=== PATIENT | female | born 1975 | race Caucasian/White ===

== ENCOUNTER → 2016-11-27 | Outpatient (CLI) | payer OTHER ==
[~2016-11-27] MED LIST: /ADVA50050 IN; /ESCI20TA OR; ACET500C OR; ADV250INH INH; ALTA5CAP OR; APIDINJ SC; APIDRA INSULIN SC; FOLI1TAB2 PO; GLUC1KIT INJ; INSUDET SC; INSULANT SC; KEPP500T6 PO; LEVE500XR PO; LIPI10TA OR; LORATADINE PO; NICO14PA TD; NPH INSULIN SC; PROA1AER INH; SING10TA31 OR; THIA100TA PO; VENTOLIN INH; VITMTA PO
[2016-11-27 11:35] LABS: INR 0.98
[2016-11-27 11:54] LABS: ANION GAP 9 MEQ/L (8-16); BLOOD UREA NITROGEN 11 MG/DL (7-18); CALCIUM LEVEL 8.9 MG/DL (8.5-10.1); CARBON DIOXIDE LEVEL 27 MEQ/L (21-32); CHLORIDE LEVEL 102 MEQ/L (98-107); CREATININE FOR GFR 0.88 MG/DL (0.55-1.02); GLOMERULAR FILTRATION RATE > 60.0 (>58); GLUCOSE, FASTING 109 MG/DL (70-105); POTASSIUM SERUM 4.8 MEQ/L (3.5-5.1); SODIUM LEVEL 138 MEQ/L (136-145)
== END ==
LOC: M WUC 09:41
PROVIDERS: ATTEND Family Medicine
DX: Z01.818 Encounter for other preprocedural examination (principal); M25.512 Pain in left shoulder; E10.9 Type 1 diabetes mellitus without complications; E78.2 Mixed hyperlipidemia; Z72.0 Tobacco use

== ENCOUNTER → 2017-02-09 | Outpatient (CLI) | payer OTHER ==
[2017-02-09 14:29] LABS: ALT/SGPT 19 U/L (12-78); ANION GAP 8 MEQ/L (8-16); AST/SGOT 17 U/L (15-37); BLOOD UREA NITROGEN 9 MG/DL (7-18); CALCIUM LEVEL 9.2 MG/DL (8.5-10.1); CARBON DIOXIDE LEVEL 28 MEQ/L (21-32); CHLORIDE LEVEL 102 MEQ/L (98-107); CREATININE FOR GFR 0.83 MG/DL (0.55-1.02); GLOMERULAR FILTRATION RATE > 60.0 (>58); GLUCOSE, FASTING 131 MG/DL (70-105); POTASSIUM SERUM 4.5 MEQ/L (3.5-5.1); SODIUM LEVEL 138 MEQ/L (136-145)
[2017-02-09 14:30] LABS: ALBUMIN 3.8 GM/DL (3.2-5.2); ALBUMIN/GLOBULIN RATIO 1.03 (1.00-1.93); ALKALINE PHOSPHATASE 64 U/L (45-117); BILIRUBIN,TOTAL 1.1 MG/DL (0.2-1.0); CHOLESTEROL LEVEL 171 MG/DL (<200); TOTAL PROTEIN 7.5 GM/DL (6.4-8.2); TRIGLYCERIDES LEVEL 87 MG/DL (<150)
== END ==
LOC: M WUC 10:06
PROVIDERS: ATTEND Family Medicine
DX: E78.2 Mixed hyperlipidemia (principal); E10.9 Type 1 diabetes mellitus without complications

== ENCOUNTER → 2017-05-07 | Outpatient (CLI) | payer OTHER, MEDICAID ==
[~2017-05-07] MED LIST changes: +ATOR1TAB19 PO; +BASA100I SC; +BASA100I SQ; +BREO1INH INH; +BUSP10TA PO; +CETI10TA PO; +CETI5TAB2 PO; -FOLI1TAB2 PO; +FOLI1TAB4 PO; +GABA-283 PO; +HUMA100I3 SC; +HYDR-3713 PO; +KEPP1TAB PO; +KEPP1TAB2 PO; -KEPP500T6 PO; +LEXA1TAB PO; +LIPI10TA PO; +LISI-542 PO; +MONT10TA2 PO; +PRIM50TA6 PO; -PROA1AER INH; +PROAAER10 INH; +REGL10TA6 PO; +ZOFR4TAB3 PO; +[UNRECOGNIZED DRUG - OTHER] SC
--- NOTE | 2017-05-08 08:11 | REP ---
Clinical: Pain . Technique: Internal rotation, external rotation, and Y view left shoulder . Findings: Mild degenerative changes at the acromioclavicular joint are appreciated. No acute fracture or dislocation. No periarticular calcifications or further significant degenerative changes are appreciated. Sub acromial space is normal. No periarticular calcifications. Surrounding soft tissues are unremarkable. Impression: Essentially normal age appropriate left shoulder radiographs. Signed by Kendall Clarke MD 05/08/2017 02:52 A
== END ==
LOC: M WUC 10:20
PROVIDERS: ATTEND Psychiatry & Neurology Neurology
DX: M25.512 Pain in left shoulder (principal)

== ENCOUNTER 2017-05-09 11:44 | Emergency (ER) | payer MEDICAID, OTHER ==
[~2017-05-09] VITALS: Ht 167.6 cm; Wt 61.4 kg
[~2017-05-09 11:44] MED LIST changes: -ATOR1TAB19 PO; -BASA100I SC; -BASA100I SQ; -BREO1INH INH; -BUSP10TA PO; -CETI10TA PO; -CETI5TAB2 PO; -GABA-283 PO; -HUMA100I3 SC; -HYDR-3713 PO; -KEPP1TAB2 PO; -LEXA1TAB PO; -LIPI10TA PO; -LISI-542 PO; -MONT10TA2 PO; -PRIM50TA6 PO; -REGL10TA6 PO; -ZOFR4TAB3 PO; -[UNRECOGNIZED DRUG - OTHER] SC
[2017-05-09] MEDS ORDERED: BASA100I SC (11:55)
[2017-05-09] MEDS ORDERED: LIPI10TA PO (11:55)
[2017-05-09] MEDS ORDERED: BUSP10TA PO (11:55)
[2017-05-09] MEDS ORDERED: LEXA1TAB PO (11:55)
[2017-05-09] MEDS ORDERED: LR 1,000 ML IV ONE ×2 (13:15→14:45)
[2017-05-09 13:56] LABS: ADD MANUAL DIFFER YES; MEAN CORPUSCULAR HEMOGLOBIN 33.8 pg (27.0-33.0); MEAN CORPUSCULAR HGB CONC 34.2 g/dl (32.0-36.5); MEAN CORPUSCULAR VOLUME 98.8 fl (80.0-96.0); PLATELET COUNT, AUTOMATED 171 k/mm3 (150-450); RED CELL DISTRIBUTION WIDTH 12.1 % (11.5-14.5)
[2017-05-09 13:58] LABS: ALBUMIN 3.9 GM/DL (3.2-5.2); ALBUMIN/GLOBULIN RATIO 1.18 (1.00-1.93); ALKALINE PHOSPHATASE 55 U/L (45-117); ALT/SGPT 29 U/L (12-78); ANION GAP 10 MEQ/L (8-16); AST/SGOT 43 U/L (15-37); BILIRUBIN,TOTAL 0.3 MG/DL (0.2-1.0); BLOOD UREA NITROGEN 12 MG/DL (7-18); CALCIUM LEVEL 8.7 MG/DL (8.5-10.1); CARBON DIOXIDE LEVEL 22 MEQ/L (21-32); CHLORIDE LEVEL 104 MEQ/L (98-107); GLOMERULAR FILTRATION RATE > 60.0 (>58); GLUCOSE, FASTING 174 MG/DL (70-105); POTASSIUM SERUM 4.1 MEQ/L (3.5-5.1); SODIUM LEVEL 136 MEQ/L (136-145); TOTAL PROTEIN 7.2 GM/DL (6.4-8.2)
[2017-05-09 14:24] LABS: BANDS 7 % (< 11); EOSINOPHILS 1 % (0-5)
[2017-05-09] MEDS ORDERED: ONDANSETRON 4MG/2ML VIAL (J2405) IV ONE (14:45)
[2017-05-09] MEDS ORDERED: ZOFR4TAB3 PO (15:11)
[2017-05-09 15:47] VITALS: BP 108/64
--- NOTE | 2017-05-10 07:58 | ECGEPIP ---
Stationary ECG Study [facility] - ED Test Date: 2017-05-09 Pat Name: SIMONE KELLY Department: Room: - Gender: F Medical Artist: eugenia LACKEYB: 1975 Requested By: JUANJOSE Bowie PA-C Order Number: [id number] Reading MD: Lopez Poe Measurements Intervals [place] Rate: 83 P: 72 MD: 141 QRS: 72 QRSD: 77 T: 53 QT: 367 QTc: 434 Interpretive Statements SINUS RHYTHM Electronically Signed On 05-10-2017 7:58:05 EDT by Lopez Poe
[2017-07-13] MEDS ORDERED: ATOR1TAB19 PO (12:36)
[2017-07-13] MEDS ORDERED: MONT10TA2 PO (12:36)
[2017-07-13] MEDS ORDERED: BREO1INH INH (12:36)
[2017-07-13] MEDS ORDERED: LISI-542 PO (12:36)
[2017-07-13] MEDS ORDERED: CETI10TA PO (12:36)
[2017-07-13] MEDS ORDERED: KEPP1TAB2 PO (12:36)
[2017-07-13] MEDS ORDERED: GABA-283 PO (12:36)
[2017-07-13] MEDS ORDERED: CETI5TAB2 PO (12:36)
[2017-07-13] MEDS ORDERED: [UNRECOGNIZED DRUG - OTHER] SC (12:36)
[2017-07-13] MEDS ORDERED: PRIM50TA6 PO (12:36)
== END 2017-05-09 15:57 | disposition home or self-care (01) ==
LOC: M ED 11:44
DX: K52.9 Noninfective gastroenteritis and colitis, unspecified (principal); R51 Headache; G40.909 Epilepsy, unspecified, not intractable, without status epilepticus; J45.909 Unspecified asthma, uncomplicated; E11.9 Type 2 diabetes mellitus without complications; H91.93 Unspecified hearing loss, bilateral; F17.200 Nicotine dependence, unspecified, uncomplicated; Z90.79 Acquired absence of other genital organ(s); Z79.4 Long term (current) use of insulin; Z79.899 Other long term (current) drug therapy
CPT/HCPCS: 80053; 83690; 85025; 93005; 96360; 96361; 99284; J2405

== ENCOUNTER 2017-05-11 10:31 | Emergency (ER) | payer MEDICAID ==
[~2017-05-11] VITALS: Ht 167.6 cm; Wt 63.9 kg
[~2017-05-11 10:31] MED LIST changes: +BASA100I SC; +BUSP10TA PO; +LEXA1TAB PO; +LIPI10TA PO; +ZOFR4TAB3 PO
[2017-05-11 10:32] VITALS: BP 113/76
[2017-05-11] MEDS ORDERED: HUMA100I3 SC (10:41)
[2017-05-11] MEDS ORDERED: NS 1,000 ML IV ONE (11:30)
[2017-05-11] MEDS ORDERED: METOCLOPRAMIDE INJ 10MG/2ML VIAL (J2765) IV ONE (11:45)
[2017-05-11 11:52] LABS: BASO # 0.1 K/mm3 (0.0-0.2); BASO % 1.1 % (0.0-1.0); EOS # 0.2 K/mm3 (0.0-0.50); EOS % 3.9 % (0.0-3.0); LARGE UNSTAINED CELL # 0.3 K/mm3 (0.0-0.4); LARGE UNSTAINED CELL % 4.3 % (0.0-4.0); LYMPH # 1.7 K/mm3 (1.5-4.5); LYMPH % 24.5 % (24.0-44.0); MEAN CORPUSCULAR HEMOGLOBIN 32.5 pg (27.0-33.0); MEAN CORPUSCULAR HGB CONC 33.7 g/dl (32.0-36.5); MEAN CORPUSCULAR VOLUME 96.4 fl (80.0-96.0); MONO # 0.4 K/mm3 (0.0-0.8); MONO % 6.8 % (0.0-5.0); NEUTROPHILS # 3.5 K/mm3 (1.8-7.7); NEUTROPHILS % 59.3 % (36.0-66.0); PLATELET COUNT, AUTOMATED 178 k/mm3 (150-450); RED CELL DISTRIBUTION WIDTH 12.4 % (11.5-14.5); WHITE BLOOD COUNT 5.8 K/mm3 (4.0-10.0)
[2017-05-11 12:18] LABS: ALBUMIN 3.4 GM/DL (3.2-5.2); ALBUMIN/GLOBULIN RATIO 0.87 (1.00-1.93); ALKALINE PHOSPHATASE 54 U/L (45-117); ALT/SGPT 32 U/L (12-78); ANION GAP 6 MEQ/L (8-16); AST/SGOT 39 U/L (15-37); BILIRUBIN,TOTAL 0.3 MG/DL (0.2-1.0); BLOOD UREA NITROGEN 6 MG/DL (7-18); CALCIUM LEVEL 8.6 MG/DL (8.5-10.1); CARBON DIOXIDE LEVEL 25 MEQ/L (21-32); CHLORIDE LEVEL 105 MEQ/L (98-107); CREATININE FOR GFR 0.99 MG/DL (0.55-1.02); GLOMERULAR FILTRATION RATE > 60.0 (>58); GLUCOSE, FASTING 96 MG/DL (70-105); POTASSIUM SERUM 3.3 MEQ/L (3.5-5.1); SODIUM LEVEL 136 MEQ/L (136-145); TOTAL PROTEIN 7.3 GM/DL (6.4-8.2)
--- NOTE | 2017-05-11 12:49 | REP ---
ABDOMEN, FLAT AND UPRIGHT, PA CHEST: HISTORY: Abdominal pain. Air is present in the small and large intestine. Several air fluid levels are present. There are no dilated loops of intestine. There is no pneumoperitoneum. The lungs are clear. IMPRESSION: Nonspecific bowel gas pattern. Signed by Refugio Reich MD 05/11/2017 12:52 P
[2017-05-11] MEDS ORDERED: POTASSIUM CHLORIDE 10 MEQ SR TABLET PO ONE (13:15)
[2017-05-11] MEDS ORDERED: REGL10TA6 PO (13:20)
[2017-07-13] MEDS ORDERED: KEPP1TAB2 PO (12:36)
[2017-07-13] MEDS ORDERED: PRIM50TA6 PO (12:36)
[2017-07-13] MEDS ORDERED: ATOR1TAB19 PO (12:36)
[2017-07-13] MEDS ORDERED: LISI-542 PO (12:36)
[2017-07-13] MEDS ORDERED: MONT10TA2 PO (12:36)
[2017-07-13] MEDS ORDERED: CETI10TA PO (12:36)
[2017-07-13] MEDS ORDERED: GABA-283 PO (12:36)
[2017-07-13] MEDS ORDERED: BREO1INH INH (12:36)
[2017-07-13] MEDS ORDERED: [UNRECOGNIZED DRUG - OTHER] SC (12:36)
[2017-07-13] MEDS ORDERED: CETI5TAB2 PO (12:36)
== END 2017-05-11 13:31 | disposition home or self-care (01) ==
LOC: M ED 10:31
DX: A09 Infectious gastroenteritis and colitis, unspecified (principal); F17.210 Nicotine dependence, cigarettes, uncomplicated; Z88.0 Allergy status to penicillin; Z88.1 Allergy status to other antibiotic agents; Z88.2 Allergy status to sulfonamides; Z79.4 Long term (current) use of insulin; Z79.899 Other long term (current) drug therapy
CPT/HCPCS: 74022; 80053; 81001; 83690; 85025; 87507; 96374; 99283; J2765

== ENCOUNTER → 2017-05-18 | Outpatient (CLI) | payer MEDICAID ==
[~2017-05-18] MED LIST changes: +ATOR1TAB19 PO; +BASA100I SQ; +BREO1INH INH; +CETI10TA PO; +CETI5TAB2 PO; +GABA-283 PO; +HUMA100I3 SC; +HYDR-3713 PO; +KEPP1TAB2 PO; +LISI-542 PO; +MONT10TA2 PO; +PRIM50TA6 PO; +REGL10TA6 PO; +[UNRECOGNIZED DRUG - OTHER] SC
[2017-05-18 18:24] LABS: ALBUMIN 3.5 GM/DL (3.2-5.2); ALBUMIN/GLOBULIN RATIO 1.03 (1.00-1.93); ALKALINE PHOSPHATASE 54 U/L (45-117); ALT/SGPT 35 U/L (12-78); ANION GAP 11 MEQ/L (8-16); AST/SGOT 22 U/L (15-37); BILIRUBIN,DIRECT 0.2 MG/DL (0.0-0.2); BILIRUBIN,TOTAL 0.5 MG/DL (0.2-1.0); BLOOD UREA NITROGEN 7 MG/DL (7-18); CARBON DIOXIDE LEVEL 23 MEQ/L (21-32); CHLORIDE LEVEL 107 MEQ/L (98-107); CREATININE FOR GFR 0.74 MG/DL (0.55-1.02); GLOMERULAR FILTRATION RATE > 60.0 (>58); GLUCOSE, FASTING 167 MG/DL (70-105); POTASSIUM SERUM 3.7 MEQ/L (3.5-5.1); SODIUM LEVEL 141 MEQ/L (136-145); TOTAL PROTEIN 6.9 GM/DL (6.4-8.2)
== END ==
LOC: M WUC 12:17
PROVIDERS: ATTEND Internal Medicine Endocrinology, Diabetes & Metabolism
DX: E10.65 Type 1 diabetes mellitus with hyperglycemia (principal)

== ENCOUNTER → 2017-07-07 | Outpatient (CLI) | payer MEDICAID, OTHER ==
[2017-07-07 17:24] LABS: ANION GAP 5 MEQ/L (8-16); BLOOD UREA NITROGEN 5 MG/DL (7-18); CALCIUM LEVEL 9.2 MG/DL (8.5-10.1); CARBON DIOXIDE LEVEL 31 MEQ/L (21-32); CHLORIDE LEVEL 103 MEQ/L (98-107); CREATININE FOR GFR 0.72 MG/DL (0.55-1.02); GLOMERULAR FILTRATION RATE > 60.0 (>58); POTASSIUM SERUM 4.5 MEQ/L (3.5-5.1); SODIUM LEVEL 139 MEQ/L (136-145)
[2017-07-07 17:57] LABS: GLUCOSE, FASTING 33 MG/DL (70-105)
[2017-07-07 20:06] LABS: MEAN CORPUSCULAR HEMOGLOBIN 33.3 pg (27.0-33.0); MEAN CORPUSCULAR VOLUME 101.1 fl (80.0-96.0); RED CELL DISTRIBUTION WIDTH 13.9 % (11.5-14.5); WHITE BLOOD COUNT 10.2 10^3/uL (4.0-10.0)
== END ==
LOC: M WUC 14:22
PROVIDERS: ATTEND Podiatrist Foot & Ankle Surgery
DX: Z01.818 Encounter for other preprocedural examination (principal); M20.41 Other hammer toe(s) (acquired), right foot

== ENCOUNTER 2017-07-22 07:04 | Day surgery (SDC) | payer OTHER ==
[~2017-07-22] VITALS: Ht 167.6 cm; Wt 64.9 kg
[~2017-07-22 07:04] MED LIST changes: -BASA100I SQ; -HYDR-3713 PO
[2017-07-22] MEDS ORDERED: LR 1,000 ML IV ONE (07:15)
[2017-07-22] MEDS ORDERED: CLINDAMYCIN 600 MG in APPROPRIATE DILUENT 1 EA IV ONE (07:30)
[2017-07-22] MEDS ORDERED: BASA100I SQ (07:48)
[2017-07-22] MEDS ORDERED: PROPOFOL 200 MG/20 ML VIAL As Ordered ONE (07:55)
[2017-07-22] MEDS ORDERED: ONDANSETRON 4MG/2ML VIAL (J2405) As Ordered ONE (07:55)
[2017-07-22] MEDS ORDERED: fentaNYL 100 MCG/2 ML INJECTION (J3010) As Ordered ONE (07:55)
[2017-07-22] MEDS ORDERED: LIDOCAINE 2% INJ 100 MG/5 ML SDV (FOR ANES.) As Ordered ONE (07:55)
[2017-07-22] MEDS ORDERED: dexameTHASONE 4 MG/ML 1ML VIAL (J1100) As Ordered ONE (07:57)
[2017-07-22] MEDS ORDERED: MIDAZOLAM INJ 2 MG/2 ML VIAL (J2250) As Ordered ONE (07:57)
[2017-07-22] MEDS ORDERED: LIDOCAINE 1% MDV 20ML VIAL As Ordered ONE (07:57)
[2017-07-22] MEDS ORDERED: BUPIVACAINE HCL 0.5% 10 ML VIAL As Ordered ONE (07:57)
[2017-07-22] MEDS ORDERED: HYDR-3713 PO (09:59)
[2017-07-22 10:40] VITALS: BP 134/77
--- NOTE | 2017-07-22 11:25 | RO ---
DATE OF SURGERY: 07/22/2017 PREOPERATIVE DIAGNOSES: Right 5th hammertoe with corn. POSTOPERATIVE DIAGNOSES: Right 5th hammertoe with corn. PROCEDURE: Right 5th hammertoe correction, excision of corn. SURGEON: Len Bowers DPM STEAM PLANT OPERATOR: None ANESTHESIA: Monitored anesthesia care with preoperative injection of 5 mL of 1:1 mixture of 1% lidocaine plain and 0.5% Marcaine plain. ESTIMATED BLOOD LOSS: Minimal. MATERIALS: 4-0 nylon. INJECTABLES: 0.2 mL dexamethasone 4 mg/mL. COMPLICATIONS: None. CONDITION: Stable. Rabia Manuel is a 41-year-old female who presents to [facility] with painful corn and hammertoe to her 5th toe on the right foot. She presents today for surgical correction. The patient side and site were identified and marked in the preoperative holding area. Consent was reviewed and obtained. All risks, complications, and alternatives to the procedure were explained to the patient in detail. Questions were answered. DESCRIPTION OF PROCEDURE: The patient was brought to the operating room and placed on the operating room table in supine position. Monitored anesthesia care was delivered by the anesthesia team. The patient received clindamycin 600 mg prior to the procedure. The right foot was prepped and draped in normal sterile fashion. Tourniquet was applied at the right ankle and inflated to 225 mmHg. An elliptical incision was made around the corn, which was at the lateral narrow fold of the 5th toe and extended proximally to the level of the proximal interphalangeal joint, which was carried through with a #15 blade. The corn was excised in total. Dissection was carried down until the distal bone was identified. There was a bone spur noted at the corn site that was dissected with the sagittal saw. Next, attention was paid to the proximal interphalangeal joint. Tenotomy was performed of the extensor tendon, and the proximal interphalangeal joint capsule was transected, exposing the head of the proximal phalanx. The collateral ligaments were released, and the head of the proximal phalanx was excised with a sagittal saw. Following this, the extensor tendon was repaired with 3-0 Vicryl, and skin closure was performed with 4-0 nylon. 0.2 mL dexamethasone was injected. Sterile dressings were applied. The tourniquet was deflated. The patient was brought to postanesthesia care unit (PACU), vital signs stable, and neurovascular status intact. She will be weightbearing as tolerated in postoperative shoe. She will followup in office in 2 days.
== END 2017-07-22 10:45 | disposition home or self-care (01) ==
LOC: M SDC 07:04
PROVIDERS: ATTEND Podiatrist Foot & Ankle Surgery
DX: M20.41 Other hammer toe(s) (acquired), right foot (principal); L84 Corns and callosities; F32.9 Major depressive disorder, single episode, unspecified; E10.9 Type 1 diabetes mellitus without complications; E78.2 Mixed hyperlipidemia; I10 Essential (primary) hypertension; E78.00 Pure hypercholesterolemia, unspecified; R56.9 Unspecified convulsions; J45.909 Unspecified asthma, uncomplicated; Z88.0 Allergy status to penicillin; Z88.2 Allergy status to sulfonamides; Z88.8 Allergy status to other drugs, medicaments and biological substances; Z79.899 Other long term (current) drug therapy; Z79.4 Long term (current) use of insulin; Z72.0 Tobacco use; Z90.710 Acquired absence of both cervix and uterus; Z98.51 Tubal ligation status

== ENCOUNTER → 2017-08-19 | Outpatient (CLI) | payer OTHER ==
[~2017-08-19] MED LIST changes: +BASA100I SQ; +HYDR-3713 PO
[2017-08-19 17:08] LABS: ALBUMIN 3.8 GM/DL (3.2-5.2); ALBUMIN/GLOBULIN RATIO 1.15 (1.00-1.93); ALKALINE PHOSPHATASE 56 U/L (45-117); ALT/SGPT 22 U/L (12-78); ANION GAP 8 MEQ/L (8-16); AST/SGOT 7 U/L (7-37); BILIRUBIN,TOTAL 0.6 MG/DL (0.2-1.0); BLOOD UREA NITROGEN 14 MG/DL (7-18); CALCIUM LEVEL 9.2 MG/DL (8.5-10.1); CARBON DIOXIDE LEVEL 25 MEQ/L (21-32); CHLORIDE LEVEL 104 MEQ/L (98-107); CHOLESTEROL LEVEL 151 MG/DL (<200); CREATININE FOR GFR 0.99 MG/DL (0.55-1.02); GLOMERULAR FILTRATION RATE > 60.0 (>58); GLUCOSE, FASTING 251 MG/DL (70-105); POTASSIUM SERUM 4.4 MEQ/L (3.5-5.1); SODIUM LEVEL 137 MEQ/L (136-145); TOTAL PROTEIN 7.1 GM/DL (6.4-8.2); TRIGLYCERIDES LEVEL 63 MG/DL (<150)
== END ==
LOC: M WUC 13:58
PROVIDERS: ATTEND Family Medicine
DX: E78.2 Mixed hyperlipidemia (principal)

== ENCOUNTER → 2017-12-30 | Outpatient (REF) | payer OTHER ==
[2017-12-30 11:59] LABS: ANION GAP 5 MEQ/L (8-16); BLOOD UREA NITROGEN 10 MG/DL (7-18); CALCIUM LEVEL 9.2 MG/DL (8.5-10.1); CARBON DIOXIDE LEVEL 29 MEQ/L (21-32); CHLORIDE LEVEL 107 MEQ/L (98-107); GLOMERULAR FILTRATION RATE > 60.0 (>58); GLUCOSE, FASTING 78 MG/DL (70-100); POTASSIUM SERUM 4.7 MEQ/L (3.5-5.1); SODIUM LEVEL 141 MEQ/L (136-145)
== END ==
LOC: M LABDRAWC 11:22
DX: M75.02 Adhesive capsulitis of left shoulder (principal)

== ENCOUNTER 2018-02-22 15:32 | Outpatient (CLI) | payer OTHER ==
[2018-02-23 09:27] LABS: ALBUMIN 4.2 GM/DL (3.2-5.2); ALBUMIN/GLOBULIN RATIO 1.31 (1.00-1.93); ALKALINE PHOSPHATASE 59 U/L (45-117); ALT/SGPT 18 U/L (12-78); ANION GAP 10 MEQ/L (8-16); AST/SGOT 12 U/L (7-37); BILIRUBIN,TOTAL 0.8 MG/DL (0.2-1.0); BLOOD UREA NITROGEN 11 MG/DL (7-18); CALCIUM LEVEL 9.1 MG/DL (8.5-10.1); CARBON DIOXIDE LEVEL 27 MEQ/L (21-32); CHLORIDE LEVEL 101 MEQ/L (98-107); CHOLESTEROL LEVEL 174 MG/DL (<200); CHOLESTEROL RISK RATIO 1.793 (<5); CREATININE FOR GFR 0.91 MG/DL (0.55-1.30); GLOMERULAR FILTRATION RATE > 60.0 (>58); GLUCOSE, FASTING 118 MG/DL (70-100); HDL CHOLESTEROL 97 MG/DL (>40); LDL CHOLESTEROL 63.8 MG/DL (<100); NON-HDL-C 77 MG/DL; POTASSIUM SERUM 4.5 MEQ/L (3.5-5.1); SODIUM LEVEL 138 MEQ/L (136-145); TOTAL PROTEIN 7.4 GM/DL (6.4-8.2); TRIGLYCERIDES LEVEL 66 MG/DL (<150)
[2018-02-23 09:36] LABS: ESTIMATED AVERAGE GLUCOSE 151 MG/DL (60-110); HEMOGLOBIN A1c 6.9 %
== END 2018-02-23 ==
LOC: M WUC 15:32
DX: E78.2 Mixed hyperlipidemia (principal)
CPT/HCPCS: 36415; 84443

== ENCOUNTER → 2018-05-31 | Outpatient (REF) | payer OTHER ==
[2018-05-31 23:03] LABS: CHLAMYDIA DNA AMPLIFICATION NEGATIVE (NEGATIVE); GC DNA AMPLIFICATION NEGATIVE (NEGATIVE)
== END ==
LOC: M LAB REF 21:02
DX: N39.0 Urinary tract infection, site not specified (principal)

== ENCOUNTER 2018-06-05 02:42 | Emergency (ER) | payer OTHER ==
[2018-06-05] MEDS: DEXTROSE 50% 50 ML SYRINGE IV ×2 (04:02→06:35)
[2018-06-05 04:03] LABS: BEDSIDE GLUCOSE 64 MG/DL (70-105)
[2018-06-05] MEDS ORDERED: DEXTROSE 50% 50 ML SYRINGE As Ordered (04:03)
[2018-06-05 04:47] LABS: BEDSIDE GLUCOSE 100 MG/DL (70-105)
[2018-06-05 04:58] LABS: BASO % 0.5 % (0.0-1.0); EOS # 0.2 10^3/uL (0.0-0.50); EOS % 2.1 % (0.0-3.0); HEMATOCRIT 37.7 % (36.0-47.0); HEMOGLOBIN 12.7 g/dl (12.0-15.5); IMMATURE GRANULOCYTE % 0.3 % (0-3.0); LYMPH # 2.7 10^3/uL (1.5-4.5); LYMPH % 35.4 % (24.0-44.0); MEAN CORPUSCULAR HGB CONC 33.7 g/dl (32.0-36.5); MEAN CORPUSCULAR VOLUME 97.9 fl (80.0-96.0); MONO # 0.5 10^3/uL (0.0-0.8); MONO % 6.2 % (0.0-5.0); NEUTROPHILS # 4.2 10^3/uL (1.8-7.7); NEUTROPHILS % 55.5 % (36.0-66.0); PLATELET COUNT, AUTOMATED 259 10^3/uL (150-450); RED BLOOD COUNT 3.85 10^6/uL (4.00-5.40); RED CELL DISTRIBUTION WIDTH 12.1 % (11.5-14.5); WHITE BLOOD COUNT 7.5 10^3/uL (4.0-10.0)
[2018-06-05 05:18] LABS: CONTROL LINE HCG INT CTR LINE PRESENT; HCG, SERUM QUALITATIVE NEGATIVE (NEGATIVE)
[2018-06-05 05:41] LABS: ETHYL ALCOHOL (ETHANOL) 0.093 % (0.000-0.010)
[2018-06-05 05:44] LABS: HIV SCRN NEGATIVE (NEGATIVE); HIV SCRN1 NEGATIVE (NEGATIVE)
[2018-06-05 05:45] LABS: CONTROL LINE INT CTR LINE PRESENT
[2018-06-05 06:36] LABS: BEDSIDE GLUCOSE 35 MG/DL (70-105)
[2018-06-05] MEDS: D5W/0.45% SODIUM CHLORIDE 1,000 ML IV ×2 (06:44→07:08)
[2018-06-05 06:59] LABS: BEDSIDE GLUCOSE 98 MG/DL (70-105)
[2018-06-05 07:28] LABS: BEDSIDE GLUCOSE 88 MG/DL (70-105)
[2018-06-05 07:58] LABS: BEDSIDE GLUCOSE 81 MG/DL (70-105)
[2018-06-05 08:29] LABS: BEDSIDE GLUCOSE 80 MG/DL (70-105)
[2018-06-05 08:51] LABS: ALBUMIN 3.5 GM/DL (3.2-5.2); ALBUMIN/GLOBULIN RATIO 1.03 (1.00-1.93); ALKALINE PHOSPHATASE 46 U/L (45-117); ALT/SGPT 19 U/L (12-78); ANION GAP 8 MEQ/L (8-16); AST/SGOT 10 U/L (7-37); BILIRUBIN,TOTAL 0.4 MG/DL (0.2-1.0); BLOOD UREA NITROGEN 11 MG/DL (7-18); CALCIUM LEVEL 8.5 MG/DL (8.5-10.1); CARBON DIOXIDE LEVEL 28 MEQ/L (21-32); CHLORIDE LEVEL 107 MEQ/L (98-107); CREATININE FOR GFR 0.65 MG/DL (0.55-1.30); GLOMERULAR FILTRATION RATE > 60.0 (>58); GLUCOSE, FASTING 99 MG/DL (70-100); POTASSIUM SERUM 4.1 MEQ/L (3.5-5.1); SODIUM LEVEL 143 MEQ/L (136-145); TOTAL PROTEIN 6.9 GM/DL (6.4-8.2)
[2018-06-05 09:08] LABS: BEDSIDE GLUCOSE 78 MG/DL (70-105)
[2018-06-05 09:48] LABS: BEDSIDE GLUCOSE 109 MG/DL (70-105)
[2018-06-05 10:23] LABS: BEDSIDE GLUCOSE 101 MG/DL (70-105)
[2018-06-05 11:22] LABS: BEDSIDE GLUCOSE 76 MG/DL (70-105)
[2018-06-05 12:28] LABS: BEDSIDE GLUCOSE 157 MG/DL (70-105)
[2018-06-05 14:03] LABS: BEDSIDE GLUCOSE 103 MG/DL (70-105)
[2018-06-08 10:30] LABS: HEPATITIS B SURFACE ANTIBODY NEGATIVE (POSITIVE)
[2018-06-08 10:39] LABS: HEPATITIS B SURFACE ANTIGEN NEGATIVE (NEGATIVE)
[2018-06-08 11:07] LABS: HEPATITIS C VIRUS ABY INDEX 0.1 INDEX (<0.8)
== END 2018-06-05 13:20 | disposition home or self-care (01) ==
LOC: M ED 02:42
DX: T76.21XA Adult sexual abuse, suspected, initial encounter (principal); E10.649 Type 1 diabetes mellitus with hypoglycemia without coma; Y92.099 Unspecified place in other non-institutional residence as the place of occurrence of the external cause; Y93.9 Activity, unspecified; F10.129 Alcohol abuse with intoxication, unspecified; I10 Essential (primary) hypertension; E78.00 Pure hypercholesterolemia, unspecified; Z87.891 Personal history of nicotine dependence; Z79.4 Long term (current) use of insulin; Z79.899 Other long term (current) drug therapy; Z88.0 Allergy status to penicillin; Z88.2 Allergy status to sulfonamides
CPT/HCPCS: G0480

== ENCOUNTER → 2018-07-17 | Outpatient (REF) | payer OTHER | LOC: M LAB REF 10:44 | DX: N39.0 Urinary tract infection, site not specified (principal) | CPT/HCPCS: 87186 ==

== ENCOUNTER → 2018-08-11 | Outpatient (REF) | payer OTHER | LOC: M LAB REF 09:40 | DX: R30.0 Dysuria (principal) ==

== ENCOUNTER → 2019-01-05 | Outpatient (CLI) | payer OTHER ==
[~2019-01-05] MED LIST changes: -/ADVA50050 IN; -/ESCI20TA OR; +ADVA1AER2 IN; +FOLI1TAB11 PO; -FOLI1TAB4 PO; -GABA-283 PO; +GABA-845 PO; +LEXA1TAB2 OR; +OXYC1TAB23 PO; +ZOFR4TAB14 PO; -ZOFR4TAB3 PO
--- NOTE | 2019-01-05 10:38 | ECGEPIP ---
Stationary ECG Study [facility] Test Date: 2019-01-05 Pat Name: SIMONE KELLY Department: Room: - Gender: F Blind Hanger: : 1975 Requested By: Stephania Brizuela PA-C Order Number: [id number] Reading MD: Ana Castelan Measurements Intervals [place] Rate: 86 P: 72 AR: 145 QRS: 71 QRSD: 82 T: 59 QT: 356 QTc: 427 Interpretive Statements SINUS RHYTHM No change c/w 05/09/17 Left atrial enlargement NEW Electronically Signed On 01-05-2019 10:38:16 EDT by Ana Castelan
[2019-01-05 10:42] LABS: BLOOD UREA NITROGEN 13 MG/DL (7-18); CALCIUM LEVEL 8.6 MG/DL (8.5-10.1); CARBON DIOXIDE LEVEL 26 MEQ/L (21-32); CHLORIDE LEVEL 104 MEQ/L (98-107); CREATININE FOR GFR 0.85 MG/DL (0.55-1.30); GLOMERULAR FILTRATION RATE > 60.0 (>58); GLUCOSE, FASTING 146 MG/DL (70-100); POTASSIUM SERUM 4.8 MEQ/L (3.5-5.1); SODIUM LEVEL 136 MEQ/L (136-145)
== END ==
LOC: M LAB 09:32
PROVIDERS: ATTEND Physician Assistant Surgical
DX: M75.41 Impingement syndrome of right shoulder (principal)

== ENCOUNTER 2019-01-22 11:42 | Emergency (ER) | payer OTHER ==
[~2019-01-22] VITALS: Ht 167.6 cm; Wt 64.5 kg
[2019-01-22] MEDS ORDERED: BREO1INH PO (12:14)
[2019-01-22] MEDS ORDERED: APIDINJ SC (12:14)
[2019-01-22] MEDS ORDERED: VENTAER INH (12:14)
[2019-01-22] MEDS ORDERED: IBUPROFEN 600 MG TAB PO ONE (12:15)
[2019-01-22] MEDS ORDERED: NS 1,000 ML IV ONE (12:15)
[2019-01-22 13:19] LABS: BASO # 0.1 10^3/uL (0.0-0.2); BASO % 0.4 % (0.0-1.0); EOS # 0.1 10^3/uL (0.0-0.50); EOS % 0.4 % (0.0-3.0); HEMATOCRIT 43.7 % (36.0-47.0); HEMOGLOBIN 14.9 g/dl (12.0-15.5); LYMPH # 3.1 10^3/uL (1.5-4.5); LYMPH % 17.6 % (24.0-44.0); MEAN CORPUSCULAR HEMOGLOBIN 32.9 pg (27.0-33.0); MEAN CORPUSCULAR HGB CONC 34.1 g/dl (32.0-36.5); MEAN CORPUSCULAR VOLUME 96.5 fl (80.0-96.0); MONO # 0.8 10^3/uL (0.0-0.8); MONO % 4.3 % (0.0-5.0); NEUTROPHILS # 13.5 10^3/uL (1.8-7.7); PLATELET COUNT, AUTOMATED 348 10^3/uL (150-450); RED BLOOD COUNT 4.53 10^6/uL (4.00-5.40); WHITE BLOOD COUNT 17.5 10^3/uL (4.0-10.0)
[2019-01-22 13:44] LABS: ALBUMIN 4.2 GM/DL (3.2-5.2); ALT/SGPT 18 U/L (12-78); BILIRUBIN,DIRECT 0.1 MG/DL (0.0-0.2); BILIRUBIN,TOTAL 0.4 MG/DL (0.2-1.0); BLOOD UREA NITROGEN 10 MG/DL (7-18); CARBON DIOXIDE LEVEL 27 MEQ/L (21-32); CHLORIDE LEVEL 104 MEQ/L (98-107); CREATININE FOR GFR 0.85 MG/DL (0.55-1.30); GLOMERULAR FILTRATION RATE > 60.0 (>58); GLUCOSE, FASTING 156 MG/DL (70-100); LIPASE 69 U/L (73-393); POTASSIUM SERUM 4.1 MEQ/L (3.5-5.1); SODIUM LEVEL 138 MEQ/L (136-145); TOTAL PROTEIN 7.6 GM/DL (6.4-8.2)
[2019-01-22 13:46] LABS: CK-MB VALUE MASS < 1.0 NG/ML (<3.6); CPK CREATINE PHOSPHOKINASE 47 U/L (26-192); MB/CK RELATIVE INDEX 2.12 (< OR =4); TROPONIN I < 0.02 NG/ML (< 0.10)
[2019-01-22 15:00] VITALS: BP 127/70
--- NOTE | 2019-01-23 09:15 | REP ---
Portable chest, 12:36 p.m., single AP view, the patient sitting: Comparison is 02/20/2011. The lung marroquin are clear. The cardiac size is normal. The ruben, mediastinum, and skeletal structures are unremarkable. Impression: Negative portable chest. There is no interval change. Electronically Signed by Nasir Jim MD 01/22/2019 12:55 P
--- NOTE | 2019-01-23 20:40 | ECGEPIP ---
Stationary ECG Study [facility] - ED Test Date: 2019-01-22 Pat Name: SIMONE KELLY Department: Room: - Gender: F Employment Officer: : 1975 Requested By: REJI Cheek Order Number: [id number] Reading MD: Merline Zambrano Measurements Intervals [place] Rate: 72 P: 70 [place]: 130 QRS: 70 QRSD: 75 T: 51 QT: 375 QTc: 412 Interpretive Statements SINUS RHYTHM DECREASED RATE 01/05/19 Electronically Signed On 01-23-2019 20:40:40 EDT by Merline Zambrano
== END 2019-01-22 15:56 | disposition home or self-care (01) ==
LOC: EDBD 11:42 → M ED 11:42
DX: M25.511 Pain in right shoulder (principal); E10.65 Type 1 diabetes mellitus with hyperglycemia; D72.823 Leukemoid reaction; Z98.890 Other specified postprocedural states; J45.909 Unspecified asthma, uncomplicated; I10 Essential (primary) hypertension; F17.210 Nicotine dependence, cigarettes, uncomplicated; Z79.51 Long term (current) use of inhaled steroids; Z79.4 Long term (current) use of insulin; Z79.891 Long term (current) use of opiate analgesic; Z79.899 Other long term (current) drug therapy; Z88.0 Allergy status to penicillin; Z88.2 Allergy status to sulfonamides

== ENCOUNTER → 2019-02-02 | Outpatient (CLI) | payer OTHER ==
[~2019-02-02] MED LIST changes: +BREO1INH PO; +VENTAER INH
[2019-02-02 18:11] LABS: BASO # 0.1 10^3/uL (0.0-0.2); BASO % 0.6 % (0.0-1.0); EOS # 0.2 10^3/uL (0.0-0.50); EOS % 1.3 % (0.0-3.0); HEMATOCRIT 38.6 % (36.0-47.0); HEMOGLOBIN 13.2 g/dl (12.0-15.5); LYMPH # 4.4 10^3/uL (1.5-4.5); LYMPH % 38.6 % (24.0-44.0); MEAN CORPUSCULAR HEMOGLOBIN 33.4 pg (27.0-33.0); MEAN CORPUSCULAR HGB CONC 34.2 g/dl (32.0-36.5); MEAN CORPUSCULAR VOLUME 97.7 fl (80.0-96.0); MONO # 0.7 10^3/uL (0.0-0.8); MONO % 5.9 % (0.0-5.0); NEUTROPHILS % 53.4 % (36.0-66.0); PLATELET COUNT, AUTOMATED 259 10^3/uL (150-450); RED BLOOD COUNT 3.95 10^6/uL (4.00-5.40); WHITE BLOOD COUNT 11.3 10^3/uL (4.0-10.0)
== END ==
LOC: M LAB 17:29
PROVIDERS: ATTEND Family Medicine
DX: D72.829 Elevated white blood cell count, unspecified (principal)

== ENCOUNTER → 2019-02-18 | Outpatient (CLI) | payer OTHER ==
[~2019-02-18] MED LIST changes: +MECL-86
--- NOTE | 2019-02-18 17:13 | REPMRS ---
Patient History The patient states she has not had a clinical breast exam in over a year. Family history of breast cancer at age 60 in mother. Benign US guided breast biopsy of the right breast, June 13, 2016. Benign lumpectomy of the left breast, 1999. No Hormone Replacement Therapy Digital Woman Screen Mammo: February 18, 2019 - Exam #: [id number] Bilateral CC and MLO view(s) were taken. Technologist: Danna Herrera, Technologist Prior study comparison: June 13, 2016, right breast digital mammo diagnostic unilateral, performed at [facility]. June 05, 2016, digital mammo diagnostic bilateral, performed at [facility]. August 18, 2011, right breast digital mammo diagnostic unilateral, performed at [facility]. August 05, 2011, digital mammo diagnostic bilateral, performed at [facility]. FINDINGS: There are scattered fibroglandular densities. There is a needle biopsy marker clip in the subareolar region of the right breast. There is a moderate amount of residual fibroglandular tissue which is fairly symmetric. There is no interval development of dominant mass, architectural distortion, or clustered microcalcification typical of malignancy. There has been no change in the appearance of the mammogram from the prior studies. 3-D tomosynthesis shows no additional findings. Assessment: BI-RADS/ACR category 2 mammogram. Benign Findings. Recommendation Routine screening mammogram of both breasts in 1 year (for women over age 40). This patient's Lifetime Breast Cancer RIsk is estimated at 16.6 %. This mammogram was interpreted with the aid of an FDA-approved computer-aided dectection system. Electronically Signed By: Ramakrishna Renteria MD 02/18/19 2822
== END ==
LOC: M WHC 14:58
PROVIDERS: ATTEND Family Medicine
DX: Z12.31 Encounter for screening mammogram for malignant neoplasm of breast (principal); Z80.3 Family history of malignant neoplasm of breast; Z86.018 Personal history of other benign neoplasm

== ENCOUNTER 2019-02-27 19:29 | Emergency (ER) | payer OTHER ==
[~2019-02-27] VITALS: Ht 167.6 cm; Wt 68.2 kg
[~2019-02-27 19:29] MED LIST changes: -MECL-86
[2019-02-27] MEDS ORDERED: DEXTROSE 50% 50 ML SYRINGE IV STA (19:37)
[2019-02-27] MEDS ORDERED: D10W 1,000 ML IV SCH (19:45)
[2019-02-27 19:55] LABS: HEMATOCRIT 43.9 % (36.0-47.0); HEMOGLOBIN 14.9 g/dl (12.0-15.5); MEAN CORPUSCULAR HEMOGLOBIN 33.8 pg (27.0-33.0); MEAN CORPUSCULAR HGB CONC 33.9 g/dl (32.0-36.5); MEAN CORPUSCULAR VOLUME 99.5 fl (80.0-96.0); PLATELET COUNT, AUTOMATED 328 10^3/uL (150-450); RED BLOOD COUNT 4.41 10^6/uL (4.00-5.40); WHITE BLOOD COUNT 16.6 10^3/uL (4.0-10.0)
[2019-02-27 20:07] LABS: HCG, SERUM QUALITATIVE NEGATIVE (NEGATIVE)
[2019-02-27] MEDS ORDERED: BASA100I SC ×2 (20:22)
[2019-02-27] MEDS ORDERED: MECL-86 (20:22)
[2019-02-27 21:41] LABS: ALBUMIN 3.8 GM/DL (3.2-5.2); ALT/SGPT 23 U/L (12-78); BILIRUBIN,DIRECT < 0.1 MG/DL (0.0-0.2); BILIRUBIN,TOTAL 0.3 MG/DL (0.2-1.0); BLOOD UREA NITROGEN 6 MG/DL (7-18); CALCIUM LEVEL 9.1 MG/DL (8.5-10.1); CARBON DIOXIDE LEVEL 27 MEQ/L (21-32); CHLORIDE LEVEL 106 MEQ/L (98-107); CREATININE FOR GFR 0.84 MG/DL (0.55-1.30); ETHYL ALCOHOL (ETHANOL) < 0.003 % (0.000-0.010); GLOMERULAR FILTRATION RATE > 60.0 (>58); GLUCOSE, FASTING 103 MG/DL (70-100); POTASSIUM SERUM 3.5 MEQ/L (3.5-5.1); SODIUM LEVEL 141 MEQ/L (136-145); TOTAL PROTEIN 6.7 GM/DL (6.4-8.2)
[2019-02-27 21:42] LABS: ACETAMINOPHEN LEVEL < 2.0 UG/ML (10.0-30.0); SALICYLATE LEVEL 4.9 MG/DL (5.0-30.0)
[2019-02-27 21:45] VITALS: BP 116/73
== END 2019-02-27 23:28 | disposition home or self-care (01) ==
LOC: M ED 19:29
DX: F33.9 Major depressive disorder, recurrent, unspecified (principal); E10.9 Type 1 diabetes mellitus without complications; I10 Essential (primary) hypertension; F41.9 Anxiety disorder, unspecified; R56.9 Unspecified convulsions; E78.00 Pure hypercholesterolemia, unspecified; E10.649 Type 1 diabetes mellitus with hypoglycemia without coma; Z96.41 Presence of insulin pump (external) (internal); Z79.4 Long term (current) use of insulin; Z79.899 Other long term (current) drug therapy; Z88.0 Allergy status to penicillin; Z88.2 Allergy status to sulfonamides
CPT/HCPCS: 80047; 80048; 80076; 84443; 84703; 85027; 96365; 99285; G0480

== ENCOUNTER → 2019-03-23 | Outpatient (CLI) | payer OTHER ==
[~2019-03-23] MED LIST changes: +MECL-86
[2019-03-23 18:08] LABS: BASO # 0.1 10^3/uL (0.0-0.2); BASO % 0.6 % (0.0-1.0); EOS # 0.1 10^3/uL (0.0-0.50); EOS % 1.4 % (0.0-3.0); HEMATOCRIT 39.4 % (36.0-47.0); HEMOGLOBIN 13.1 g/dl (12.0-15.5); LYMPH # 3.9 10^3/uL (1.5-4.5); LYMPH % 38.9 % (24.0-44.0); MEAN CORPUSCULAR HEMOGLOBIN 34.1 pg (27.0-33.0); MEAN CORPUSCULAR HGB CONC 33.2 g/dl (32.0-36.5); MEAN CORPUSCULAR VOLUME 102.6 fl (80.0-96.0); MONO # 0.6 10^3/uL (0.0-0.8); MONO % 5.9 % (0.0-5.0); NEUTROPHILS # 5.3 10^3/uL (1.8-7.7); NEUTROPHILS % 52.9 % (36.0-66.0); PLATELET COUNT, AUTOMATED 278 10^3/uL (150-450); RED BLOOD COUNT 3.84 10^6/uL (4.00-5.40); WHITE BLOOD COUNT 10.1 10^3/uL (4.0-10.0)
[2019-03-23 18:31] LABS: ALT/SGPT 24 U/L (12-78); BILIRUBIN,TOTAL 0.4 MG/DL (0.2-1.0); BLOOD UREA NITROGEN 15 MG/DL (7-18); CALCIUM LEVEL 8.7 MG/DL (8.5-10.1); CARBON DIOXIDE LEVEL 29 MEQ/L (21-32); CHLORIDE LEVEL 102 MEQ/L (98-107); CHOLESTEROL LEVEL 146 MG/DL (<200); CHOLESTEROL RISK RATIO 1.604 (<5); CREATININE FOR GFR 0.92 MG/DL (0.55-1.30); GLOMERULAR FILTRATION RATE > 60.0 (>58); GLUCOSE, FASTING 176 MG/DL (70-100); HDL CHOLESTEROL 91 MG/DL (>40); LDL CHOLESTEROL 44 MG/DL (<100); NON-HDL-C 55 MG/DL; POTASSIUM SERUM 4.3 MEQ/L (3.5-5.1); SODIUM LEVEL 137 MEQ/L (136-145); TOTAL PROTEIN 7.2 GM/DL (6.4-8.2); TRIGLYCERIDES LEVEL 56 MG/DL (<150)
[2019-03-23 18:37] LABS: MALB URINE SIEMENS 6.5 MG/L; MAU/CREAT RATIO 4.9 MCG/MG (0.0-30.0)
== END ==
LOC: M LAB 17:22
PROVIDERS: ATTEND Family Medicine
DX: G40.909 Epilepsy, unspecified, not intractable, without status epilepticus (principal); E10.9 Type 1 diabetes mellitus without complications; E78.2 Mixed hyperlipidemia

== ENCOUNTER → 2019-03-30 | Outpatient (CLI) | payer OTHER | LOC: M LAB 11:47 | PROVIDERS: ATTEND Family Medicine | DX: D53.9 Nutritional anemia, unspecified (principal) ==

== ENCOUNTER → 2019-04-06 | Outpatient (CLI) | payer OTHER ==
[2019-04-06 08:26] LABS: BLOOD UREA NITROGEN 7 MG/DL (7-18); CALCIUM LEVEL 9.3 MG/DL (8.5-10.1); CARBON DIOXIDE LEVEL 27 MEQ/L (21-32); CHLORIDE LEVEL 107 MEQ/L (98-107); CREATININE FOR GFR 0.84 MG/DL (0.55-1.30); GLOMERULAR FILTRATION RATE > 60.0 (>58); GLUCOSE, FASTING 165 MG/DL (70-100); POTASSIUM SERUM 4.6 MEQ/L (3.5-5.1); SODIUM LEVEL 139 MEQ/L (136-145)
== END ==
LOC: M LAB 07:27
PROVIDERS: ATTEND Orthopaedic Surgery
DX: M75.01 Adhesive capsulitis of right shoulder (principal); Z79.899 Other long term (current) drug therapy

== ENCOUNTER → 2019-10-10 | Outpatient (REF) | payer OTHER ==
[2019-10-10 12:09] LABS: BASO # 0.1 10^3/uL (0.0-0.2); BASO % 0.4 % (0.0-1.0); HEMATOCRIT 43.6 % (36.0-47.0); HEMOGLOBIN 14.4 g/dl (12.0-15.5); LYMPH # 1.8 10^3/uL (1.5-5.0); LYMPH % 10.6 % (24.0-44.0); MEAN CORPUSCULAR HEMOGLOBIN 33.5 pg (27.0-33.0); MEAN CORPUSCULAR VOLUME 101.4 fl (80.0-96.0); MONO # 0.4 10^3/uL (0.0-0.8); MONO % 2.3 % (0.0-5.0); NEUTROPHILS # 14.5 10^3/uL (1.5-8.5); NEUTROPHILS % 86.4 % (36.0-66.0); PLATELET COUNT, AUTOMATED 338 10^3/uL (150-450); WHITE BLOOD COUNT 16.8 10^3/uL (4.0-10.0)
[2019-10-10 12:43] LABS: ALBUMIN 3.7 GM/DL (3.2-5.2); ALT/SGPT 16 U/L (12-78); BILIRUBIN,TOTAL 0.7 MG/DL (0.2-1.0); BLOOD UREA NITROGEN 12 MG/DL (7-18); CALCIUM LEVEL 9.5 MG/DL (8.5-10.1); CARBON DIOXIDE LEVEL 30 MEQ/L (21-32); CHLORIDE LEVEL 97 MEQ/L (98-107); CREATININE FOR GFR 1.01 MG/DL (0.55-1.30); GLOMERULAR FILTRATION RATE > 60.0 (>58); GLUCOSE, FASTING 287 MG/DL (70-100); POTASSIUM SERUM 4.6 MEQ/L (3.5-5.1); SODIUM LEVEL 136 MEQ/L (136-145); TOTAL PROTEIN 7.6 GM/DL (6.4-8.2)
[2019-10-10 12:49] LABS: MALB URINE SIEMENS < 5.0 MG/L; MAU/CREAT RATIO 22.7 MCG/MG (0.0-30.0)
[2019-10-10 12:59] LABS: HEMOGLOBIN A1c 6.7 %
== END ==
LOC: M SFHCCLAY 09:08
PROVIDERS: ATTEND Family Medicine
DX: E10.9 Type 1 diabetes mellitus without complications (principal); D72.829 Elevated white blood cell count, unspecified

== ENCOUNTER → 2020-01-12 | Outpatient (CLI) | payer OTHER ==
[~2020-01-12] MED LIST changes: -MONT10TA2 PO; +MONT10TA4 PO
== END ==
LOC: M LABSMTC 10:32
PROVIDERS: ATTEND Family Medicine
DX: Z11.59 Encounter for screening for other viral diseases (principal); Z20.89 Contact with and (suspected) exposure to other communicable diseases

== ENCOUNTER → 2020-03-01 | Outpatient (CLI) | payer OTHER ==
[2020-03-01 16:14] LABS: BLOOD UREA NITROGEN 11 MG/DL (7-18); CALCIUM LEVEL 8.7 MG/DL (8.5-10.1); CARBON DIOXIDE LEVEL 27 MEQ/L (21-32); CHLORIDE LEVEL 105 MEQ/L (98-107); CREATININE FOR GFR 0.82 MG/DL (0.55-1.30); GLOMERULAR FILTRATION RATE > 60.0 (>58); GLUCOSE, FASTING 107 MG/DL (70-100); POTASSIUM SERUM 4.2 MEQ/L (3.5-5.1); SODIUM LEVEL 138 MEQ/L (136-145)
[2020-03-01 16:41] LABS: HEMOGLOBIN A1c 6.5 %
--- NOTE | 2020-03-02 22:09 | ECGEPIP ---
[facility] Test Date: 2020-03-01 Pat Name: SIMONE KELLY Department: Room: - Gender: Female Floating Derrick Operator: KARINA : 1975 Requested By: Andrei Pradhan Order Number: [id number] Reading MD: Miguel Chun Measurements Intervals [place] Rate: 72 P: 74 [place]: 139 QRS: 76 QRSD: 78 T: 56 QT: 383 QTc: 422 Interpretive Statements SINUS RHYTHM No significant change compared with 01/22/2019. Electronically Signed on 03-02-2020 22:09:35 EDT by Miguel Chun
== END ==
LOC: M LAB 15:19
PROVIDERS: ATTEND Orthopaedic Surgery
DX: Z01.818 Encounter for other preprocedural examination (principal); E10.9 Type 1 diabetes mellitus without complications

== ENCOUNTER → 2020-03-05 | Outpatient (CLI) | payer OTHER | LOC: M LABSMTC 10:16 | PROVIDERS: ATTEND Physician Assistant | DX: Z11.59 Encounter for screening for other viral diseases (principal) ==

== ENCOUNTER → 2020-04-10 | Outpatient (CLI) | payer OTHER ==
[2020-04-10 14:52] LABS: HEMATOCRIT 39.1 % (36.0-47.0); MEAN CORPUSCULAR HEMOGLOBIN 33.7 pg (27.0-33.0); MEAN CORPUSCULAR HGB CONC 33.2 g/dl (32.0-36.5); MEAN CORPUSCULAR VOLUME 101.3 fl (80.0-96.0); PLATELET COUNT, AUTOMATED 239 10^3/uL (150-450); RED BLOOD COUNT 3.86 10^6/uL (4.00-5.40)
[2020-04-10 15:40] LABS: ALBUMIN 3.6 GM/DL (3.2-5.2); ALT/SGPT 17 U/L (12-78); BILIRUBIN,DIRECT 0.1 MG/DL (0.0-0.2); BILIRUBIN,TOTAL 0.4 MG/DL (0.2-1.0); BLOOD UREA NITROGEN 16 MG/DL (7-18); CALCIUM LEVEL 9.2 MG/DL (8.5-10.1); CARBON DIOXIDE LEVEL 27 MEQ/L (21-32); CHLORIDE LEVEL 108 MEQ/L (98-107); CREATININE FOR GFR 0.87 MG/DL (0.55-1.30); GLOMERULAR FILTRATION RATE > 60.0 (>58); GLUCOSE, FASTING 184 MG/DL (70-100); PHOSPHORUS LEVEL 3.4 MG/DL (2.5-4.9); POTASSIUM SERUM 4.4 MEQ/L (3.5-5.1); SODIUM LEVEL 141 MEQ/L (136-145); TOTAL PROTEIN 7.1 GM/DL (6.4-8.2)
== END ==
LOC: M LAB 13:55
PROVIDERS: ATTEND Podiatrist Foot & Ankle Surgery
DX: B35.1 Tinea unguium (principal); Z79.899 Other long term (current) drug therapy

== ENCOUNTER 2020-05-09 12:25 | Inpatient (IN) | payer OTHER ==
[~2020-05-09 12:25] MED LIST changes: +LIDOCAINE 1% MDV 20ML VIAL ONE; +ROPIvacaine 0.5% 30ML INJECTION (J2795 PER 1MG) ONE; +VANCOMYCIN 1000MG/20ML VIAL As Ordered ONE; +VANCOMYCIN 1000MG/20ML VIAL ONE; +dexameTHASONE 10MG/1ML VIAL PRES.FREE (J1100 PER 1MG) ONE
[2020-05-09] MEDS ORDERED: MIDAZOLAM INJ 2MG/2ML VIAL (J2250 PER 1MG) As Ordered ONE (13:55)
[2020-05-09] MEDS ORDERED: fentaNYL 100 MCG/2 ML INJECTION (J3010) ONE (13:55)
[2020-05-09] MEDS ORDERED: fentaNYL 100 MCG/2 ML INJECTION (J3010) As Ordered ONE ×2 (13:55→13:56)
[2020-05-09] MEDS ORDERED: MIDAZOLAM INJ 2MG/2ML VIAL (J2250 PER 1MG) ONE (13:55)
[2020-05-09] MEDS ORDERED: propofoL 200 MG/20 ML VIAL As Ordered ONE (13:56)
[2020-05-09] MEDS ORDERED: ROCURONIUM BROMIDE 50 MG/5 ML VIAL As Ordered ONE (13:56)
[2020-05-09] MEDS ORDERED: LIDOCAINE 2% 100MG/5ML SDV (FOR ANES.) As Ordered ONE (13:56)
[2020-05-09] MEDS ORDERED: EPINEPHrine 1MG/ML INJ 30ML MD-VIAL As Ordered ONE (16:25)
[2020-05-09] MEDS ORDERED: dexameTHASONE 4 MG/ML 1ML VIAL (J1100 PER 1MG) As Ordered ONE (16:57)
[2020-05-09] MEDS ORDERED: PHENYLephrine HCL 500 MCG/5 ML (100MCG/ML) SYRINGE (J2370) As Ordered ONE (17:15)
[2020-05-09] MEDS ORDERED: METOCLOPRAMIDE INJ 10MG/2ML VIAL (J2765 PER 1) As Ordered ONE (17:16)
[2020-05-09] MEDS ORDERED: ONDANSETRON 4MG/2ML VIAL As Ordered ONE (17:16)
[2020-05-09] MEDS ORDERED: LEVALBUTEROL 1.25 MG/0.5 ML CONCENTRATE NEB As Ordered ONE (18:19)
[2020-05-09] MEDS ORDERED: LEVALBUTEROL 1.25 MG/0.5 ML CONCENTRATE NEB ONE (18:19)
[2020-05-10] MEDS ORDERED: LEVEMIR (INSULIN DETEMIR) 1 UNITS/0.01ML ONE ×2 (00:05→07:01)
[2020-05-10] MEDS ORDERED: busPIRone 10 MG TAB ONE (00:05)
[2020-05-10] MEDS ORDERED: HumaLOG INSULIN (NovoLOG) PER UNIT ONE ×2 (00:05→07:01)
[2020-05-10] MEDS ORDERED: levETIRAcetam 250MG TABLET (KEPPRA) ONE ×2 (00:05→07:01)
[2020-05-10] MEDS ORDERED: DIVALPROEX 500 MG TAB As Ordered ONE (00:05)
[2020-05-10] MEDS ORDERED: DIVALPROEX 500 MG TAB ONE (00:05)
[2020-05-10] MEDS ORDERED: ATORVASTATIN 10 MG TAB ONE (00:05)
[2020-05-10] MEDS ORDERED: levETIRAcetam 250MG TABLET (KEPPRA) As Ordered ONE ×2 (00:05→07:59)
[2020-05-10] MEDS ORDERED: ATORVASTATIN 10 MG TAB As Ordered ONE (00:06)
[2020-05-10] MEDS ORDERED: busPIRone 10 MG TAB As Ordered ONE (00:06)
[2020-05-10] MEDS ORDERED: LEVEMIR (INSULIN DETEMIR) 1 UNITS/0.01ML As Ordered ONE ×2 (00:07→07:56)
[2020-05-10] MEDS ORDERED: HumaLOG INSULIN (NovoLOG) PER UNIT As Ordered ONE ×2 (00:24→07:54)
[2020-05-10] MEDS ORDERED: PERCOCET 5MG/325MG TAB ONE (07:01)
[2020-05-10] MEDS ORDERED: MONTELUKAST 10 MG TAB ONE (07:01)
[2020-05-10] MEDS ORDERED: ESCITALOPRAM OXALATE 10 MG TAB (LEXAPRO) ONE (07:01)
[2020-05-10] MEDS ORDERED: PERCOCET 5MG/325MG TAB As Ordered ONE (07:01)
[2020-05-10] MEDS ORDERED: PRIMIDONE 50 MG TAB ONE (07:59)
[2020-05-10] MEDS ORDERED: MONTELUKAST 10 MG TAB As Ordered ONE (07:59)
[2020-05-10] MEDS ORDERED: ESCITALOPRAM OXALATE 10 MG TAB (LEXAPRO) As Ordered ONE (08:00)
--- NOTE | 2020-07-13 07:39 | RO ---
DATE OF OPERATION: 05/09/2020 PREOPERATIVE DIAGNOSIS: Right shoulder recurrent arthrofibrosis. POSTOPERATIVE DIAGNOSIS: Right shoulder recurrent arthrofibrosis. PROCEDURES: Right shoulder manipulation under anesthesia. Right shoulder arthroscopic revision capsulotomy. Right shoulder subacromial bursectomy. SURGEON: Andrei Lao M.D. FRANCHISE MANAGER: Ms. Deisy Carcamo ANESTHESIA: Right interscalene nerve block with a general endotracheal tube anesthetic. COMPLICATIONS: None. ESTIMATED BLOOD LOSS: None. SPECIMENS: None. FINDINGS: Exam under anesthesia revealed that she did have marked, especially external and internal rotation; essentially 0 external rotation and approximately 20 degrees of internal rotation and forward elevation was limited to about 120 degrees. Findings at surgery, it appeared as if the capsule was quite well released, but the prior capsulotomy was still intact circumferentially. I used a subperiosteal elevator to ensure we had good play all the way around the glenoid anteriorly, inferiorly, and posteriorly. In the subacromial bursa, there was extensive bursitis. After manipulation under anesthesia and after doing a bursectomy and the arthroscopic capsular releases, there was some improvement in her rotation and especially with external rotation, internal rotation, and forward elevation; but it was not complete. I concluded the procedure. I did not want to cause inadvertent fracture of her arm, and I do not feel there was much more I could have accomplished at this point. DESCRIPTION OF PROCEDURE: After adequate right interscalene nerve block and general endotracheal tube anesthetic had been given, as well as 1 gram of vancomycin, she was placed in the semi-beach chair position and the exam under anesthesia was performed. Her right shoulder area was then carefully prepped and draped in the usual sterile fashion. Routine diagnostic arthroscopy was performed through a posterior portal. Anterior working portal was established with a 7-mm cannula. We explored the joint. Debridement of the remnant of the superior labrum was performed. The biceps was noted to be absent from prior biceps tenotomy. I carefully probed along the anterior aspect of the subscapularis and it had excellent mobility actually all the way down to the medial glenoid, and I used the silver scapular periosteal elevator to ensure that the release had been completed and was still persistent all the way around the anterior aspect of the glenoid neck, as well as inferiorly on the axillary fold. I then placed the scope in the anterior aspect of the joint with a switching stick in the posterior portal, and ensured again that the posterior capsule was also well released. The glenohumeral articular surfaces appeared to be still relatively well preserved. As I rotated the shoulder under direct visualization from the posterior portal also the subscapularis was noted to move quite well with it. So it is possible that a lot of her loss of motion could be extrinsic possibly from the bursa. So at this point, I placed the scope into the subacromial space and established a lateral working portal using the ablator wand and the shaver to perform essentially a complete bursectomy, providing excellent visualization of the subacromial space and the underlying rotator cuff. There was no rotator cuff tear noted, but the bursa sac was completely debrided, allowed excellent visualization, and this was photographed. I could look down the lateral gutter over the top of the greater tuberosity quite a distance. I could palpate down the anterior aspect of the shoulder, as well as posteriorly. I felt that a good release had been obtained. At this point, I removed all the arthroscopy instruments and manipulated the shoulder, and clearly there was improvement in her external and internal rotation and abduction, as well as forward elevation. It was not complete by any means, but I manipulated quite vigorously and I did not want to continue for fear of causing iatrogenic damage such as a fracture. So at this point, I elected to conclude the procedure. I closed the arthroscopy portals with interrupted nylon sutures covered with Adaptic dry sterile bulky dressing. She was placed into her sling and awakened from general endotracheal tube anesthesia after having tolerating the procedure well. She was then transferred to the recovery room in stable condition. There were no intraoperative complications. Niviajerod Carcamo was critical to the success of this difficult surgery by helping with holding the scope, manipulating the shoulder, closing the wound, preparing the patient, amongst many other tasks to allow me to perform the operation smoothly, efficiently, and safely. LILLIE
== END 2020-05-10 08:00 | disposition home or self-care (01) | DRG 315 ==
LOC: M MS5PR 12:25
PROVIDERS: ADMIT Orthopaedic Surgery; ATTEND Orthopaedic Surgery
PROC: 0M8 Bursae and Ligaments, Division (ICD-10-PCS; principal; 2020-05-09)
PROC: 0MB14ZZ Excision of Right Shoulder Bursa and Ligament, Percutaneous Endoscopic Approach (ICD-10-PCS; 2020-05-09)
DX: M24.611 Ankylosis, right shoulder (principal); I10 Essential (primary) hypertension; Z79.899 Other long term (current) drug therapy; E10.9 Type 1 diabetes mellitus without complications; J45.909 Unspecified asthma, uncomplicated; Z88.2 Allergy status to sulfonamides; Z88.8 Allergy status to other drugs, medicaments and biological substances; F17.210 Nicotine dependence, cigarettes, uncomplicated; M75.01 Adhesive capsulitis of right shoulder; G43.909 Migraine, unspecified, not intractable, without status migrainosus; Z88.0 Allergy status to penicillin

== ENCOUNTER → 2020-07-11 | Outpatient (REF) | payer OTHER ==
[~2020-07-11] MED LIST changes: -LIDOCAINE 1% MDV 20ML VIAL ONE; -ROPIvacaine 0.5% 30ML INJECTION (J2795 PER 1MG) ONE; -VANCOMYCIN 1000MG/20ML VIAL As Ordered ONE; -VANCOMYCIN 1000MG/20ML VIAL ONE; -dexameTHASONE 10MG/1ML VIAL PRES.FREE (J1100 PER 1MG) ONE
[2020-07-11 18:15] LABS: CREATININE, URINE 49.2 MG/DL; MALB URINE SIEMENS < 5.0 MG/L; MAU/CREAT RATIO 10.1 MCG/MG (0.0-30.0)
== END ==
LOC: M LAB REF 16:47
PROVIDERS: ATTEND Nurse Practitioner Family
DX: E10.65 Type 1 diabetes mellitus with hyperglycemia (principal)

== ENCOUNTER → 2020-09-14 | Outpatient (CLI) | payer OTHER ==
[~2020-09-14] MED LIST changes: -MONT10TA4 PO; +MONT5TAB2 PO
--- NOTE | 2020-09-14 17:52 | REP ---
INDICATION: N63.20 LT BREAST LUMP. left breast lump x2 weeks, 12 o'clock position. Tenderness. COMPARISON: Mammography comparison mammography is from June 05, 2016, February 18, 2019. TECHNIQUE: Bilateral CC and MLO) view(s) were taken. A skin marker is affixed to the skin at the site of the palpable abnormality of the left breast. 3D tomography is performed bilaterally. Magnified focal spot-compression views of the left breast are obtained. Targeted left breast sonography is carried out. FINDINGS: On mammography, there is a fibroglandular somewhat rounded density underlying the skin marker at the site of the palpable lump. However, this is actually less prominent in size than on comparison mammography. No progressive changes are seen. Scattered fibroglandular elements are again noted. These are bilaterally otherwise unchanged. No definite spiculation or microcalcification is observed. No worrisome skin change. The Volpara volumetric breast density pattern is B. On sonography of the left breast, there is some fibroglandular background echotexture. At 12 o'clock in the area the palpable lump there is a heterogeneous hypoechoic area which may be fibroglandular tissue however has regular margins and corresponds to the palpable lump. It measures 3.2 x 1.3 x 2.6 cm. There is no evidence of acoustic shadowing. Its long axis is parallel to the skin. It is felt to be nonspecific sonographically.. IMPRESSION: BIRADS/ACR category 4 suspicious left breast mammographic and sonographic findings. Biopsy is recommended. The palpable lump corresponds to a heterogeneous hypoechoic oval-shaped nodular area on ultrasound.. This patient's Tyrer-Cuzick lifetime breast cancer risk assessment score is 16.4%. This mammogram was interpreted with the aid of an FDA-approved computer-aided detection system. The patient states she had a clinical breast exam in September 14, 2020. The patient letter being requested is M4. RECOMMENDATION: Ultrasound-guided needle biopsy of the left breast lump with marker clip placement and post clip placement left breast mammography is recommended.. <Electronically signed by Ramakrishna Renteria > 09/14/20 2619
== END ==
LOC: M WHC 15:49
PROVIDERS: ATTEND Nurse Practitioner Family
DX: N63.25 Unspecified lump in the left breast, overlapping quadrants (principal)
CPT/HCPCS: 76642; 77066; G0279

== ENCOUNTER 2020-09-19 03:34 | Emergency (ER) | payer OTHER ==
[~2020-09-19] VITALS: Ht 167.6 cm; Wt 63.6 kg
[2020-09-19 03:52] VITALS: BP 151/72
[2020-09-19 04:35] LABS: HEMATOCRIT 41.7 % (36.0-47.0); HEMOGLOBIN 13.9 g/dl (12.0-15.5); MEAN CORPUSCULAR HEMOGLOBIN 34.1 pg (27.0-33.0); MEAN CORPUSCULAR HGB CONC 33.3 g/dl (32.0-36.5); MEAN CORPUSCULAR VOLUME 102.2 fl (80.0-96.0); PLATELET COUNT, AUTOMATED 248 10^3/uL (150-450); RED BLOOD COUNT 4.08 10^6/uL (4.00-5.40); WHITE BLOOD COUNT 20.3 10^3/uL (4.0-10.0)
[2020-09-19 04:48] LABS: BLOOD UREA NITROGEN 10 MG/DL (7-18); CALCIUM LEVEL 8.4 MG/DL (8.5-10.1); CARBON DIOXIDE LEVEL 30 MEQ/L (21-32); CHLORIDE LEVEL 101 MEQ/L (98-107); CREATININE FOR GFR 0.74 MG/DL (0.55-1.30); GLOMERULAR FILTRATION RATE > 60.0 (>58); GLUCOSE, FASTING 152 MG/DL (70-100); POTASSIUM SERUM 3.8 MEQ/L (3.5-5.1); SODIUM LEVEL 140 MEQ/L (136-145)
== END 2020-09-19 05:12 | disposition home or self-care (01) ==
LOC: M ED 03:34
DX: E10.649 Type 1 diabetes mellitus with hypoglycemia without coma (principal); Z79.899 Other long term (current) drug therapy; Z79.4 Long term (current) use of insulin; Z88.0 Allergy status to penicillin; Z88.1 Allergy status to other antibiotic agents; Z88.2 Allergy status to sulfonamides

== ENCOUNTER 2020-10-17 17:59 | Emergency (ER) | payer OTHER ==
[~2020-10-17] VITALS: Ht 167.6 cm; Wt 64.7 kg
[2020-10-17 18:00] VITALS: BP 150/74
--- OUTSIDE RECORDS SUMMARY | 2020-10-17 18:09 | CCD ---
Author Author [facility] Organization [facility] Address Unknown Phone Unavailable Care Team Providers Care Drug Discovery Informatics Specialist Name Role Phone Jenny Velazquez Unavailable PROBLEMS Type Condition ICD9-CM Code [id number] Code Onset Dates Condition S tatus SNOMED Code Notes Problem Migraine without status migr ainosus, not intractable, unspecified migraine type G43.909 Active 45140024 Problem Mild persistent asthma without complication J45.30 Active 729459354 Problem Seizure disorder G40.909 Active 812281248 Problem Leukocytosis, unspecified type D72.829 Active 1 09299534 Problem Encounter for screening mammogram for malignant neoplasm of breast Z12.31 Active 770894419 Problem Tobacco use disorder Z72.0 Active 47914729 Problem Depressive disorder, not elsewhere classified F32.9 Active 90902439 Problem Mixed hyperlipidemia E78.2 Active 457915218 Problem Type 1 diabetes mellitus without complications E10 .9 Active 948541062 ALLERGIES Allergen (clinical drug ingredient) Drug/Non Drug Allergy do cumented on EMR Reaction Allergy Type Onset Date Status Sulfacet-R Hives Drug Allergy Active amoxicillin / clavulanate Augmentin([facility] Code:[address]-91) Hives Drug Allergy Active Mold,Dust mites ? Non Drug Allergy Act guillermo ENCOUNTERS from 1975 to 2020-09-25 Encounter Location Date Provider Diagnosis [facility] [address] [place] [phone] Sep, Jenny Velazquez IMMUNIZATIONS Vaccine Route Administration Date Status Influenza (6mo & up) Fluzone IM Intramuscular Sep 02, 2017 Ad ministered Influenza (6mo & up) Fluzone Unknown December 03, 2016 Ref used Pneumococcal 0.5mL (Prevnar 13) IM Intramuscular Sep 03, 2016 Administered Influenza (6mo & up) Fluzone IM Intramuscular Sep 03, 2016 Ad ministered Influenza (6mo & up) Fluzone IM Jun 20, 2014 Adm inistered Influenza (6mo & up) Fluzone IM Jun 23, 2013 Adm inistered Influenza (6mo & up) Fluzone IM Intramuscular Sep 10, 2018 Ad ministered Influenza (6mo & up) Fluzone IM Aug 18, 2012 Adm inistered Influenza (6mo & up) Fluzone IM Jul 29, 2011 Adm inistered Influenza (6mo & up) Fluzone IM Jul 17, 2010 Adm inistered SOCIAL HISTORY Tobacco Use: Social History Observation Description Date Details (start date - stop date) Current Smoker Sex Assigned At : Social History Observation Description Sex Assigned At Unknown Education: Question Answer Notes Level of Education: Not finished High School -GED Audit Question Answer Notes Total Score: 3 Interpretation: Alcohol Education Language: Question Answer Notes Languages spoken: Khmer Adventist: Question Answer Notes Adventist 33 None Sexual Hx: Question Answer Notes Had sex in the last 12 months (vaginal, oral, or anal)? Yes Have you ever had an STD? No Prevention Strategies discussed: Other with Men only Use protection? No Drug and Alcohol Question Answer Notes Total Score: 0 Interpretation: No problems reported BMI Care Goal Follow-Up Question Answer Notes Above Normal BMI Follow-Up Dietary management educatio n, guidance, and counseling Tobacco Use: Question Answer Notes Are you a: current smoker Additional Findings: Tobacco User Moderate cigarette smoker (10-19 cigs/day) Smoking Cessation Information Given 10/10/2019 Patient counseled on the dangers of tobacco use and urged to quit: 10/10/2019 How many cigarettes a day do you smoke? 6-10 Are you interested in quitting? Ready to quit Counseled the patient on tobacco use, cessation provided 03/2020 REASON FOR REFERRAL No Information VITAL SIGNS No information MEDICATIONS Medication SIG (Take, Route, Frequency, Duration) Notes Start Da te End Date Status Zyrtec Allergy 10 mg 1 tablet as needed Orally Once a day for 30 Active BusPIRone HCl 10 mg 1 tablet Orally qhs for 30 days Active Lexapro 20 mg 1 Orally Once a day for 30 days Active BD Pen Mini _ as directed subcutaneously tid Sep, Active Aspirin 81 MG 1 tablet Orally Once a day Jan, Not-Taking Insulin Syringe PV INSULIN SYRINGE 1 subcutaneously Qid Active AirDuo RespiClick 113/14 113-14 MCG/ACT 1 puff Inhalat ion Twice a day for 30 days Active Lancets 1 as directed SQ Seven times daily prn Apr, Active Lipitor 10 mg 1 tablet Orally Once a day Active Glucose strip (Verio IQ) 1 strip for glucose testing up to 7 x daily Active Glucagon Emergency 1 MG as directed Injection as directed for lo w blood sugar February, Active Lisinopril 5 MG 1 tablet Orally Once a day for 30 Active Primidone 50 MG TAKE ONE TABLET BY MOUTH TWICE A DAY Oral Active Basaglar 100 UNIT/ML - Solution 12 units am 6 units hs Subcutaneous bid for 30 Days Active Vitamin B-1 100 MG 1 tablet Orally bid Jan, Not-Taking Meclizine HCl 25 MG 1 tablet Orally three times daily prn dizzyn ess Jan, Active Singulair 10 mg 1 Orally Once a day for 30 Active LevETIRAcetam ER 750 MG 1 Orally Bid Active Apidra 100 UNIT/ML as directed Injection Sliding scale and carb ratio Active Proventil HFA 108 (90 Base) MCG/ACT 2 puffs Inhalation Q4HPRN for 30 Days Active PROCEDURES No Information RESULTS No Results REASON FOR VISIT returning phone call MEDICAL (GENERAL) HISTORY Type Description Date Medical History IDDM Medical History Asthma Medical History Elevated cholesterol Medical History Frozen left shoulder Medical History Depression Medical History Seizures 2003- on rx, c hypoglycemia wh ile asleep Surgical History Lt breast cyst Surgical History bilateral carpal tunnel release X2 each Surgical History C-Sectionx3 Surgical History Lt arm cyst 1993 Surgical History Upper abdominal cyst 1993 Surgical History Laparoscopic Bilateral Tubal Ligation & Lysis of Adhesions 2009 Surgical History Diagnostic Laproscopy -suspected adenomy osis 12/13 Surgical History Hysterectomy partial-Laparos copic -Assisted Vaginal Hysterectomy 02/27/2011 Surgical History Left shoulder surgery 12/09/16 Surgical History ear reconstruction implants Surgical History Frozen left shoulder surgery 01/08/18 Surgical History Manipulation right shoulder 01/19/19 Surgical History s/p Rt. Shoulder manipulatio n, aarthroscopic revision capsulotomy, subacromial bursectomy c nerve block in Rt. interscalene & MARJORIE-Dr. Martinez 05/2020 Hospitalization History [facility]-hgpmk in ears 08/2015 Hospitalization History [facility]-unresponsive episode 06/08-03/19 Hospitalization History [facility]-w/surgery due to elevated BS 01/08 Hospitalization History [facility]-jjdlxiaoftt and dizzy-BS too high 01/22/19 Hospitalization History [facility] 10/05/2019 Hospitalization History diabetic class C po mor controlled insulin dependent 07/2006 Hospitalization History Acute Metabolic encephalopat hy 2 Hypoglycemia, chronic HTN, , asthma Rt. breast mass, scheduled for breast biopsy later this week, prior h/o hypoglycemia & seizures 06/10-06/11/2016 Goals Section No Information Health Concerns No Information MEDICAL EQUIPMENT No Information MENTAL STATUS No Information FUNCTIONAL STATUS No Information ASSESSMENTS No Information PLAN OF TREATMENT Next Appt Details Provider Name:Alla Albarado, 25-10-06 10:00:00 AM, [address] [place] [address], [id number], Provider Name:Hanna Diamond, 10-24 03:00:00 PM, [address] [place] [address], [phone], Insurance Providers Payer Name Payer Address Payer Phone Insured Name Patient Relati onship to Insured Coverage Start Date Coverage End Date [facility] [employer] [facility] [place] [facility] [address] [facility] [phone] SIMONE KELLY self
--- OUTSIDE RECORDS SUMMARY | 2020-10-17 18:09 | CCD | Continuity of Care Document ---
Author Author Rabia MOTA ACCOUNTS ADJUSTABLE CLERK Organization Unknown Address [address] [place] [id number] Phone [phone] Care Team Providers Care Hire Car Driver Name Role Phone JohnnieHanna holliday Rosalind LEE AUTM [phone] Problems Active Problems Provider Date Mixed hyperlipidemia Maddie Gaviria PA-C Onset: 06/30 Type 1 diabetes mellitus uncontrolled Maddie Gaviria PA-C Onset: 06/30/2016 Social History Type Date Description Comments Sex Unknown Cigarette Use currently smokes 1/2 Pack Daily x 20 years ETOH Use Rarely consumes alcohol Tobacco Use Start: Unknown Patient is a current smoker, smo kes every day Smoking Status Reviewed: 07/11/20 Patient is a current smoker, smokes every day Allergies, Adverse Reactions, Alerts Active Allergies Reaction Severity Comments Date Augmentin hives 06/30/2016 sulfa drugs hives 06/30/2016 Environmental 06/30/2016 Medications Active Medications SIG Qnty Indications Ordering Provide r Date Glucagon Emergency Kit For Low Blood Sug ar 1mg/ml Solution Rec use as needed for hypoglycemia 2units Lacie Mota NP 10/11/2020 Baqsimi Two Pack 3mg/Dose Powder 1 spray in nostril for episode of hypoglycemia. 2units Lacie Mota NP 07/11/2020 Apidra 100Unit/ML Solution inject 25 units subcutaneously as directed maximum daily dose = 25 units 10units E10 .65 Lacie Mota NP 11/05/2018 E78.2 Onetouch Verio Flex Bloodglucose Monitor ing System w/Device Kit use as directed to test blood sugars 1units Nicolle Hi MD 06/25/2018 Onetouch Verio Strips test as directed 4 times a day 200units E10.65 Lacie Mota NP 06/25/2018 Onetouch Delica Lancets Extra Fine 33G Misc use as directed 5 times daily . e11.65 300units Cl adele Hi MD 06/25/2018 Pen [place] 32G X 4 mm Misc use 2x daily e10.65 200units Nicolle Hi MD 10/30/2016 Basaglar Kwikpen 100 Unit/ML Solution Pen-Inject inject 12 units every morning and 3 units in the evening 30units Lacie Mota NP 10/30/[address]ex [address]odium 500[address] Tablets DR Take One Tablet By Mouth AT Bedtime Unknown 0 Fluticasone Propionate/Salmeterol 113-14mcg/Act Aerosol Inhale One puff By Mouth Twice A Day Unkn own Primidone 50mg Tablets 1 po b id Unknown Montelukast Sodium 10mg Tablets 1 by mouth every day Unknown Cetirizine HCL 10mg Tablets 1 by mouth every day prn Unknown Buspirone HCL 10mg Tablets 1 p.o. qhs Unknown Keppra 750mg Tablets 1 p.o. b id Unknown Escitalopram Oxalate 20mg Tablets 1 p.o. qd Unknown Atorvastatin Calcium 10mg Tablets 1 by mouth every day Unknown Lisinopril 5mg Tablets 1 by mouth every day Unknown Ventolin HFA 108(90Base) mcg/Act A erosol 2 puffs four times a day as needed Unknown Immunizations Description No Information Available Vital Signs Date Vital Result Comment 10/11/2020 8:50am BP Systolic 118 mmHg BP Diastolic 70 mmHg Heart Rate 87 /min Body Temperature 97.0 F Height 65.25 inches 5'5.25" Weight 142.00 lb BMI (Body Mass Index) 23.4 kg/m2 O2 % BldC Oximetry 99 % 07/11/2020 12:59pm BP Systolic 126 mmHg BP Diastolic 80 mmHg Heart Rate 84 /min Body Temperature 96.6 F Height 65.25 inches 5'5.25" Weight 137.00 lb BMI (Body Mass Index) 22.6 kg/m2 Results Test Acquired Date Facility Test Result H/L Range Note Laboratory test finding 10/11/2020 In House Hemoglobin A1c 6.0 Glucose 101 Urine Micro/Creat Ratio Random 07/11/2020 [facility] [address] [place] [address] [phone] Creatinine, Urine 49.2 mg/dL Normal Malb Urine Siemens < 5.0 mg/L Normal Cm/Creat Ratio 10.1 MCG/MG Normal 0.0-30.0 1 Laboratory test finding 07/11/2020 In House Hemoglobin A1c 6.3 1 THE [employer] ATION STATES THAT MICROALBUMINURIA IS PRESENT IF THE MICROALBUMIN/CREATININE RATIO EXCEEDS 30 MCG/MG. THE THRESHOLD FOR CLINICAL ALBUMINURIA IS REACHED AT 300 MCG/MG. THE CLASSIFICATION OF A PATIENT SHOULD BE BASED UPON AT LEAST 2 OF 3 ABNORMAL RESULTS ON SPECIMENS COLLECTED WITHIN A 3 TO 6 MONTH TIME FRAME. Procedures Date Code Description Status 10/11/2020 59777 Amb Glucose Monitoring Interpret ation And Report Completed 07/11/2020 53126 Amb Glucose Monitoring Interpret ation And Report Completed 04/10/2020 [id number] Diabetic Foot Exam Completed Medical Devices Description No Information Available Encounters Type Date Location Provider Dx Diagnosis Office Visit 10/11/2020 8:45a DR. Nicolle Mota NP E1 0.65 Type 1 diabetes mellitus with hyperglycemia E78.2 Mixed hyperlipidemia Office Visit 07/11/2020 1:00p DR. Nicolle Mota NP E1 0.65 Type 1 diabetes mellitus with hyperglycemia E78.2 Mixed hyperlipidemia Assessments Date Code Description Provider 10/11/2020 E10.65 Type 1 diabetes mellitus with hy perglycemia Lacie Mota NP 10/11/2020 E78.2 Mixed hyperlipidemia Lacie rutherford NP 07/11/2020 E10.65 Type 1 diabetes mellitus with hy perglycemia Lacie Mota NP 07/11/2020 E78.2 Mixed hyperlipidemia Lacie rutherford NP Plan of Treatment 10/11/2020 - Lacie Mota NP* E10.65 Type 1 diabetes mellitus with hyperglycemia* New Labs:* Hemoglobin A1c, Ordered: 10/11/20 * Glucose, Ordered: 10/11/20 * Comments:* 07/11/2020- in office a1c= 6%,6.3% (6.5%, 6.7%, 6.3, 6.2%, 6.5%, 6.9%, 6.9%, 6.9%, 6.8%,7.6%) Random BS= 101CGM download- DEXCOM- ave glucose 137, 65% in target, 37% sensor wear. Current insulin doses: Basaglar 12 units qam, 6 units qpm.Apidra- carb ratio: 1:15 with correction factor 1:75. Will continue sameCall with any problemWill decrease bedtime Basaglar 3units RTO 3 months * Follow up:* 3 months DOU[facility] * E78.2 Mixed hyperlipidemia* New Labs:* Lipid Panel, Scheduled: 10/11/20 * Comprehensive Metabolic Profil, Scheduled: 10/11/20 * Comments:* This is managed by her PCP. Currently on Atorvastatin 10mg po qd. Per pt, no recent labs have been doneWill check lipid panel and CMP * All * New Medication:* Glucagon Emergency Kit For Low Blood Sugar 1 mg/ml - use as needed for hypoglycemia Functional Status Description No Information Available Mental Status Description No Information Available Referrals Description No Information Available
--- OUTSIDE RECORDS SUMMARY | 2020-10-17 18:11 | CCD ---
Author Author [facility] Organization [facility] Address Unknown Phone Unavailable Support Name Relationship Address Phone STACIE NEVES Next Of Kin [address] [place] [address] ADVASTHMA Next Of Kin [address] [place] [address] [employer] Next Of Kin [id number] [address] UE Next Of Kin Unknown Unavailable ENRIKE SHANE Next [place] [address] LOWES Next Of Kin [id number] [facility] [address] [place] [address] SUNOCO Next Of Kin [address] [place] [address] GUDARLIN BURGOS Next Of Kin Unknown NICE N EASY Next Of Kin [facility] [address] [place] [address] PHOEBE VELEZ Next Of Kin [address] [place] [address] [place] [address] [facility] Next Of Kin [address] [place] [address] ALBARO GARRISON Next Of Kin [address] [place] [address] SIMONE KELLY Next Of Kin [address] [place] [address] [facility] Next Of Kin TR[place] [address] JRC* Next [place] [address] CHANDLER LEE Next Of Kin [address] [place] [address] MUKESH MARTINI [place] [address] MADISON MARTINI Next Of Kin [address] [facility], [place] [id number] DANNI SHANERRA ECON [address] [place] [address] Unavailable Phoebe Velez ECON [address] [place] [address] [phone] Care Team Providers Care Supervisor [employer] Name Role Phone Kiara, Carolyn ACEVES Unavailable Unavailable Kiara, Carolyn MD Unavailable Unavailable Kiara, Carolyn MD Unavailable Unavailable Kiara, Carolyn MD Unavailable Unavailable Kiara, Carolyn MD Unavailable Unavailable Kiara, Carolyn MD Unavailable Unavailable Kiara, Carolyn MD Unavailable Unavailable Kiara, Carolyn MD Unavailable Unavailable Kiara, Carolyn MD Unavailable Unavailable Kiraa, Carolyn MD Unavailable Unavailable Kiara, Carolyn MD Unavailable Unavailable Kiara, Carolyn MD Unavailable Unavailable Kiara, Carolyn MD Unavailable Unavailable Kiara, Carolyn MD Unavailable Unavailable Kiara, Carolyn MD Unavailable Unavailable Kiara, Carolyn MD Unavailable Unavailable Kiara, Carolyn MD Unavailable Unavailable Kiara, Carolyn MD Unavailable Unavailable Kiara, Carolyn MD Unavailable Unavailable Kiara, Carolyn MD Unavailable Unavailable Kiara, Carolyn MD Unavailable Unavailable Kiara, Carolyn MD Unavailable Unavailable Kiara, Carolyn MD Unavailable Unavailable Kiara, Carolyn MD Unavailable Unavailable Ikara, Carolyn MD Unavailable Unavailable Kiara, Carolyn MD Unavailable Unavailable Kiara, Carolyn MD Unavailable Unavailable Kiara, Carolyn MD Unavailable Unavailable Kiara, Carolyn MD Unavailable Unavailable Kiara, Carolyn MD Unavailable Unavailable Kiara, Carolyn MD Unavailable Unavailable Kiara, Carolyn MD Unavailable Unavailable Kiara, Carolyn MD Unavailable Unavailable Kiara, Carolyn MD Unavailable Unavailable Kiara, Carolyn MD Unavailable Unavailable Kiara, Carolyn MD Unavailable Unavailable Kiara, Carolyn MD Unavailable Unavailable Kiara, Carolyn MD Unavailable Unavailable Kiara, Carolyn MD Unavailable Unavailable Kiara, Carolyn MD Unavailable Unavailable Kiara, Carolyn MD Unavailable Unavailable Kiara, Carolyn MD Unavailable Unavailable Kiara, Carolyn MD Unavailable Unavailable Kiara, Carolyn MD Unavailable Unavailable Kiara, Carolyn MD Unavailable Unavailable Kiara, Carolyn MD Unavailable Unavailable Kiara, Carolyn MD Unavailable Unavailable Kiara, Carolyn MD Unavailable Unavailable Kiara, Carolyn MD Unavailable Unavailable Kiara, Carolyn MD Unavailable Unavailable Kiara, Carolyn MD Unavailable Unavailable Kiara, Carolyn MD Unavailable Unavailable Kiara, Carolyn MD Unavailable Unavailable Kiara, Carolyn MD Unavailable Unavailable Kiara, Carolyn MD Unavailable Unavailable Kiara, Carolyn MD Unavailable Unavailable Kiara, Carolyn MD Unavailable Unavailable Kiara, Carolyn MD Unavailable Unavailable Kiara, Carolyn MD Unavailable Unavailable Kiara, Carolyn MD Unavailable Unavailable Kiara, Carolyn MD Unavailable Unavailable Kiara, Carolyn MD Unavailable Unavailable MAJAK, R IMTIAZ DPM Unavailable Unavailable MAJAK, R IMTIAZ DPM Unavailable Unavailable MAJAK, R IMTIAZ DPM Unavailable Unavailable MAJAK, R IMTIAZ DPM Unavailable Unavailable MAJAK, R IMTIAZ DPM Unavailable Unavailable MAJAK, R IMTIAZ DPM Unavailable Unavailable MAJAK, R IMTIAZ DPM Unavailable Unavailable MAJAK, R IMTIAZ DPM Unavailable Unavailable MAJAK, R IMTIAZ DPM Unavailable Unavailable MAJAK, R IMTIAZ DPM Unavailable Unavailable MAJAK, R IMTIAZ DPM Unavailable Unavailable MAJAK, R IMTIAZ DPM Unavailable Unavailable MAJAK, R IMTIAZ DPM Unavailable Unavailable MAJAK, R IMTIAZ DPM Unavailable Unavailable MAJAK, R IMTIAZ DPM Unavailable Unavailable MAJAK, R IMTIAZ DPM Unavailable Unavailable MAJAK, R IMTIAZ DPM Unavailable Unavailable MAJAK, R IMTIAZ DPM Unavailable Unavailable MAJAK, R IMTIAZ DPM Unavailable Unavailable MAJAK, R IMTIAZ DPM Unavailable Unavailable MAJAK, R IMTIAZ DPM Unavailable Unavailable MAJAK, R IMTIAZ DPM Unavailable Unavailable MAJAK, R MITIAZ DPM Unavailable Unavailable MAJAK, R IMTIAZ DPM Unavailable Unavailable MAJAK, R IMTIAZ DPM Unavailable Unavailable MAJAK, R IMTIAZ DPM Unavailable Unavailable MAJAK, R IMTIAZ DPM Unavailable Unavailable MAJAK, R IMTIAZ DPM Unavailable Unavailable MAJAK, R IMTIAZ DPM Unavailable Unavailable AK, R IMTIAZ DPM Unavailable Unavailable Ham Hi MD Unavailable Unavailable Ham Hi MD Unavailable Unavailable Ham Hi MD Unavailable Unavailable Ham Hi MD Unavailable Unavailable Ham Hi MD Unavailable Unavailable Ham Hi MD Unavailable Unavailable Ham Hi MD Unavailable Unavailable Ham Hi MD Unavailable Unavailable Fish, Ham Valverde MD Unavailable Unavailable Fish, B Nicolle ACEVES Unavailable Unavailable Fish, B Nicolle ACEVES Unavailable Unavailable Fish, B Nicolle ACEVES Unavailable Unavailable Fish, B Nicolle ACEVES Unavailable Unavailable Fish, B Nciolle ACEVES Unavailable Unavailable Fish, B Nicolle ACEVES Unavailable Unavailable Fish, B Nicolle ACEVES Unavailable Unavailable Fish, B Nicolle ACEVES Unavailable Unavailable Fish, B Nicolle ACEVES Unavailable Unavailable Fish, B Nicolle ACEVES Unavailable Unavailable Fish, B Nicolle ACEVES Unavailable Unavailable Fish, B Nicolle ACEVES Unavailable Unavailable Fish, B Nicolle ACEVES Unavailable Unavailable Fish, B Nicolle ACEVES Unavailable Unavailable Fish, B Nicolle ACEVES Unavailable Unavailable Fish, B Nicolle ACEVES Unavailable Unavailable Fish, B Nicolle ACEVES Unavailable Unavailable Fish, B Nicolle ACEVES Unavailable Unavailable Fish, B Nicolle ACEVES Unavailable Unavailable Fish, B Nicolle ACEVES Unavailable Unavailable Fish, B Nicolle ACEVES Unavailable Unavailable Fish, B Nicolle ACEVES Unavailable Unavailable Fish, B Nicolle ACEVES Unavailable Unavailable Fish, B Nicolle ACEVES Unavailable Unavailable Fish, B Nicolle ACEVES Unavailable Unavailable Fish, B Nicolle ACEVES Unavailable Unavailable Fish, B Nicolle ACEVES Unavailable Unavailable Fish, B Nicolle ACEVES Unavailable Unavailable Fish, B Nicolle ACEVES Unavailable Unavailable Fish, B Nicolle ACEVES Unavailable Unavailable Fish, B Nicolle ACEVES Unavailable Unavailable Fish, B Nicolle ACEVES Unavailable Unavailable Fish, B Nicolle ACEVES Unavailable Unavailable Fish, B Nicolle ACEVES Unavailable Unavailable Fish, B Nicolle ACEVES Unavailable Unavailable Fish, B Nicolle ACEVES Unavailable Unavailable Fish, B Nicolle ACEVES Unavailable Unavailable Fish, B Nicolle ACEVES Unavailable Unavailable Fish, B Nicolle ACEVES Unavailable Unavailable Fish, B Nicolle ACEVES Unavailable Unavailable Fish, B Nicolle ACEVES Unavailable Unavailable Fish, B Nicolle ACEVES Unavailable Unavailable Fish, B Nicolle ACEVES Unavailable Unavailable Fish, B Nicolle ACEVES Unavailable Unavailable Fish, B Nicolle ACEVES Unavailable Unavailable Fish, B Nicolle ACEVES Unavailable Unavailable Fish, B Nicolle ACEVES Unavailable Unavailable Fish, B Nicolle ACEVES Unavailable Unavailable Fish, B Nicolle ACEVES Unavailable Unavailable Fish, B Nicolle ACEVES Unavailable Unavailable Fish, B Nicolle ACEVES Unavailable Unavailable Fish, B Nicolle ACEVES Unavailable Unavailable Fish, B Nicolle ACEVES Unavailable Unavailable Fish, B Nicolle ACEVES Unavailable Unavailable Fish, B Nicolle ACEVES Unavailable Unavailable COOK, B TIMO SHOE DESIGNER Unavailable Unavailable COOK, B TIMO SHOE DESIGNER Unavailable Unavailable COOK, B TIMO SHOE DESIGNER Unavailable Unavailable COOK, B TIMO SHOE DESIGNER Unavailable Unavailable COOK, B TIMO SHOE DESIGNER Unavailable Unavailable COOK, B TIMO SHOE DESIGNER Unavailable Unavailable COOK, B TIMO SHOE DESIGNER Unavailable Unavailable COOK, B TIMO SHOE DESIGNER Unavailable Unavailable COOK, B TIMO SHOE DESIGNER Unavailable Unavailable COOK, B TIMO SHOE DESIGNER Unavailable Unavailable COOK, B TIMO SHOE DESIGNER Unavailable Unavailable COOK, B TIMO SHOE DESIGNER Unavailable Unavailable COOK, B TIMO SHOE DESIGNER Unavailable Unavailable COOK, B TIMO SHOE DESIGNER Unavailable Unavailable COOK, B TIMO SHOE DESIGNER Unavailable Unavailable COOK, B TIMO SHOE DESIGNER Unavailable Unavailable COOK, B TIMO SHOE DESIGNER Unavailable Unavailable COOK, B TIMO SHOE DESIGNER Unavailable Unavailable COOK, B TIMO SHOE DESIGNER Unavailable Unavailable COOK, B TIMO SHOE DESIGNER Unavailable Unavailable COOK, B TIMO SHOE DESIGNER Unavailable Unavailable COOK, B TIMO SHOE DESIGNER Unavailable Unavailable COOK, B TIMO SHOE DESIGNER Unavailable Unavailable COOK, B TIMO SHOE DESIGNER Unavailable Unavailable COOK, B TIMO SHOE DESIGNER Unavailable Unavailable COOK, B TIMO SHOE DESIGNER Unavailable Unavailable COOK, B TIMO SHOE DESIGNER Unavailable Unavailable COOK, B TIMO SHOE DESIGNER Unavailable Unavailable COOK, B TIMO SHOE DESIGNER Unavailable Unavailable COOK, B TIMO SHOE DESIGNER Unavailable Unavailable COOK, B TIMO SHOE DESIGNER Unavailable Unavailable COOK, B TIMO SHOE DESIGNER Unavailable Unavailable COOK, B TIMO SHOE DESIGNER Unavailable Unavailable COOK, B TIMO SHOE DESIGNER Unavailable Unavailable COOK, B TIMO SHOE DESIGNER Unavailable Unavailable COOK, B TIMO SHOE DESIGNER Unavailable Unavailable COOK, B TIMO SHOE DESIGNER Unavailable Unavailable COOK, B TIMO SHOE DESIGNER Unavailable Unavailable COOK, B TIMO SHOE DESIGNER Unavailable Unavailable COOK, B TIMO SHOE DESIGNER Unavailable Unavailable COOK, B TIMO SHOE DESIGNER Unavailable Unavailable COOK, B TIMO SHOE DESIGNER Unavailable Unavailable COOK, B TIMO SHOE DESIGNER Unavailable Unavailable COOK, B TIMO SHOE DESIGNER Unavailable Unavailable COOK, B TIMO SHOE DESIGNER Unavailable Unavailable COOK, B TIMO SHOE DESIGNER Unavailable Unavailable COOK, B TIMO SHOE DESIGNER Unavailable Unavailable COOK, B TIMO SHOE DESIGNER Unavailable Unavailable COOK, B TIMO SHOE DESIGNER Unavailable Unavailable COOK, B TIMO SHOE DESIGNER Unavailable Unavailable COOK, B TIMO SHOE DESIGNER Unavailable Unavailable COOK, B TIMO SHOE DESIGNER Unavailable Unavailable COOK, B TIMO SHOE DESIGNER Unavailable Unavailable COOK, B TIMO SHOE DESIGNER Unavailable Unavailable COOK, B TIMO SHOE DESIGNER Unavailable Unavailable COOK, B TIMO SHOE DESIGNER Unavailable Unavailable COOK, B TIMO SHOE DESIGNER Unavailable Unavailable COOK, B TIMO SHOE DESIGNER Unavailable Unavailable COOK, B TIMO SHOE DESIGNER Unavailable Unavailable COOK, B TIMO SHOE DESIGNER Unavailable Unavailable COOK, B TIMO SHOE DESIGNER Unavailable Unavailable COOK, B TIMO SHOE DESIGNER Unavailable Unavailable COOK B TIMO SHOE DESIGNER Unavailable Unavailable Vaneenenaam, Elvie Pradhan MD Unavailable Unavailable Vaneenenaam, Elvie Pradhan MD Unavailable Unavailable Vaneenenaam, Elvie Pradhan MD Unavailable Unavailable Vaneenenaam, Elvie Pradhan MD Unavailable Unavailable Vaneenenaam, Elvie Pradhan MD Unavailable Unavailable Vaneenenaam, Elvie Pradhan MD Unavailable Unavailable Vaneenenaam, Elvie Pradhan MD Unavailable Unavailable Vaneenenaam, Elvie Pradhan MD Unavailable Unavailable Vaneenenaam, Elvie Pradhan MD Unavailable Unavailable Vaneenenaam, Elvie Pradhan MD Unavailable Unavailable Vaneenenaam, Elvie Pradhan MD Unavailable Unavailable Vaneenenaam, Elvie Pradhan MD Unavailable Unavailable Vaneenenaam, Elvie Pradhan MD Unavailable Unavailable Vaneenenaam, Elvie Pradhan MD Unavailable Unavailable Vaneenenaam, Elvie Pradhan MD Unavailable Unavailable Vaneenenaam, Elvie Pradhan MD Unavailable Unavailable Vaneenenaam, Elvie Pradhan MD Unavailable Unavailable Vaneenenaam, Elvie Pradhan MD Unavailable Unavailable Vaneenenaam, Elvie Pradhan MD Unavailable Unavailable Vaneenenaam, Elvie Pradhan MD Unavailable Unavailable Vaneenenaam, Elvie Pradhan MD Unavailable Unavailable Vaneenenaam, Elvie Pradhan MD Unavailable Unavailable Vaneenenaam, Elvie Pradhan MD Unavailable Unavailable Vaneenenaam, Elvie Pradhan MD Unavailable Unavailable Vaneenenaam, Elvie Pradhan MD Unavailable Unavailable Vaneenenaam, Elvie Pradhan MD Unavailable Unavailable Vaneenenaam, Elvie Pradhan MD Unavailable Unavailable Vaneenenaam, Elvie Pradhan MD Unavailable Unavailable Vaneenenaam, Elvie Pradhan MD Unavailable Unavailable Vaneenenaam, Elvie Pradhan MD Unavailable Unavailable Vaneenenaam, Elvie Pradhan MD Unavailable Unavailable Vaneenenaam, Elvie Pradhan MD Unavailable Unavailable Vaneenenaam, Elvie Pradhan MD Unavailable Unavailable Vaneenenaam, Elvie Pradhan MD Unavailable Unavailable Vaneenenaam, Elvie Pradhan MD Unavailable Unavailable VaneenenaamElvie MD Unavailable Unavailable VaneenenaamElvie MD Unavailable Unavailable VaneenyasmeenamElvie MD Unavailable Unavailable VaneenenaamElvie MD Unavailable Unavailable Vaneenenaam, Elvie Pradhan MD Unavailable Unavailable Vaneenenaam, Elvie Pradhan MD Unavailable Unavailable VaneenenaamElvie MD Unavailable Unavailable VaneenenaamElvie MD Unavailable Unavailable VaneenyasmeenamElvie MD Unavailable Unavailable Re-disclosure Warning The records that you are about to access may contain information from federally-assisted alcohol or drug abuse programs. If such information is present, then the following federally mandated warning applies: This information has been disclosed to you from records protected by federal confidentiality rules (42 CFR part 2). The federal rules prohibit you from making any further disclosure of this information unless further disclosure is expressly permitted by the written consent of the person to whom it pertains or as otherwise permitted by 42 CFR part 2. A general authorization for the release of medical or other information is NOT sufficient for this purpose. The Federal rules restrict any use of the information to criminally investigate or prosecute any alcohol or drug abuse patient.The records that you are about to access may contain highly sensitive health information, the redisclosure of which is protected by Article 27-F of the [facility] Public Health law. If you continue you may have access to information: Regarding HIV / AIDS; Provided by facilities licensed or operated by the [facility] Office of Mental Health; or Provided by the [facility] Office for People With Developmental Disabilities. If such information is present, then the following [facility] mandated warning applies: This information has been disclosed to you from confidential records which are protected by state law. State law prohibits you from making any further disclosure of this information without the specific written consent of the person to whom it pertains, or as otherwise permitted by law. Any unauthorized further disclosure in violation of state law may result in a fine or long-term sentence or both. A general authorization for the release of medical or other information is NOT sufficient authorization for further disc losure. Allergies and Adverse Reactions Type Description Substance Reaction Status Data Source(s ) Drug allergy Augmentin amoxicillin / clavulanate Hives Active eCW1 ([facility]) Mold,Dust mites Mold,Dust mites Mold,Dust mites ? Active eCW1 ([facility]) Sulfacet-R Sulfacet-R Sulfacet-R Hives Active eCW1 ([facility]) Family History Family Member Name Family Member Gender Family Member Status Date o f Status Description Data Source(s) Unknown Unknown Problem MEDENT ([facility]) mother Encounters Encounter Providers Location Date Indications Data Source(s ) Outpatient Attender: TIMO RANGEL NP Physical Therapy 10/11/2020 0 7:45:00 AM EST MEDENT ([facility]) Unknown [address] [facility] [address] 09/24/2020 12:00:00 AM EST eCW1 ([facility]) Outpatient [address] [facility] [place] [address] 09/14/2020 12:00:00 AM EST eCW1 ([facility]) Unknown [address] [facility] [place] [address] 09/03/2020 12:00:00 AM EST eCW1 ([facility] Unknown [address] [facility] [address] 08/01/2020 12:00:00 AM EDT eCW1 ([facility]00 PM EDT [facility] ([facility] Outpatient Attender: Carolyn Craig MD Main office - [place] 07/18/2020 12:00:00 PM EDT MEDENT ([facility]) Outpatient Attender: TIMO RANGEL NP Physical Therapy 07/11/2020 0 1:00:00 PM EDT MEDENT ([facility]) Unknown [address] [facility] [address] 07/11/2020 12:00:00 AM EDT eCW1 ([facility]) Outpatient Attender: IMTIAZ WINTERS DPM [place] Office 04/2020 03:45:00 PM EDT MED[facility] ([facility] Outpatient [address] [facility] [place] [address] 04/23/2020 12:00:00 AM EDT eCW1 ([facility]) Outpatient Attender: Carolyn Craig MD Main office - [place] 04/16/2020 11:30:00 AM EDT MEDENT ([facility]) Outpatient Attender: TIMO RANGEL NP Physical Therapy 04/10/2020 0 1:15:00 PM EDT MEDENT ([facility]) Outpatient Attender: IMTIAZ WINTERS DPM [place] [facility] 03/06 03:45:00 PM EDT MED[facility] ([facility] Outpatient Attender: Carolyn Craig MD Main office - [place] 02/13/2020 12:30:00 PM EDT MEDENT ([facility]) [address] [address] 01/18/2020 12:00:00 AM EDT eCW1 ([facility]) Outpatient Attender: TIMO RANGEL NP Physical Therapy 01/16/2020 0 1:15:00 PM EDT MEDENT ([facility]) [address] [address] 01/03/2020 12:00:00 AM EDT eCW1 ([facility]) [address] [address] 12/07/2019 12:00:00 AM EST eCW1 ([facility]) Outpatient Attender: Carolyn Craig MD Main office - [place] 11/15/2019 10:45:00 AM EST MEDENT ([facility]) Outpatient Attender: Nicolle Hi MD Physical Therapy 11/01 09:45:00 AM EST MEDENT ([facility]) Outpatient Attender: IMTIAZ WINTERS [facility] Office 10/06 02:15:00 PM EST [facility] ([facility] [address] [address] 10/10/2019 12:00:00 AM EST [facility]CW1 [facility] [address] [address] 10/04/2019 12:00:00 AM EST eCW1 ([facility]) [address] [address] 09/30/2019 12:00:00 AM EST eCW1 ([facility]) Outpatient Attender: Elvie Cole MD Physical Therap y 09/16/2019 07:00:00 AM EST MEDENT ([facility]) Outpatient Attender: Carolyn Craig MD Main office - [place] 09/14/2019 10:00:00 AM EST MEDENT ([facility] [address] [place] [phone] 09/07/2019 12:00:00 AM EST eCW1 ([facility]) [address] [address] 09/06/2019 12:00:00 AM EST eCW1 ([facility]) Outpatient Attender: IMTIAZ WINTERS [facility] Office 08/05 02:15:00 PM EST MEDENT ([facility] Medications Medication Brand Name Start Date Product Form Dose Route Admi nistrative Instructions Pharmacy Instructions Status Indications Reaction Description Data Source(s) montelukast 10 MG Oral Tablet MONTELUKAST SODIUM 10/14/2020 12:0 0:00 AM EST tablet 30 TAKE ONE TABLET BY MOUTH EVERY D AY TAKE ONE TABLET BY MOUTH EVERY DAY SOLD: 10/16/2020 [facility] 100 unit/mL 10/12/2020 12:00:00 AM EST solution 10 INJECT 25 UNITS UNDER THE SKIN DIRECTED MAXIMUM DAILY DOSE = 25 UNITS INJECT 25 UNITS UNDER THE SKIN DIRECTED MAXIMUM DAILY DOSE = 25 UNITS SOLD: 10/16/2020 [facility] 1 mg 10/11/2020 12:00:00 AM EST recon soln 2 US E NEEDED FOR HYPOGLYCEMIA USE NEEDED FOR HYPOGLYCEMIA SOLD: 10/16/2020 [facility] Glucagon 1 MG Injection Glucagon Emergency Kit For Low Blood Sugar 10/11/2020 12:00:00 AM EST active Abrahan HERRERA ([facility]) 100 unit/mL (3 mL) 10/11/2020 12:00:00 AM EST insulin pen 30 INJECT 12 UNITS EVERY MORNING AND 3 UNITS EVERY EVENING MAXIMUM DAILY DOSE = 15 UNITS INJECT 12 UNITS EVERY MORNING AND 3 UNITS EVERY EVENING MAXIMUM DAILY DOSE = 15 UNITS SOLD: 10/16/2020 [facility] 3 mg/actuation 10/10/2020 12:00:00 AM EST spray,non-aerosol 2 SPRAY ONE SPRAY IN ONE NOSTRIL FOR EPISODE OF HYPOGLYCEMIA SPRAY ONE SPRAY IN ONE NOSTRIL FOR EPISODE OF HYPOGLYCEMIA SOLD: 10/10/2020 [facility] montelukast 10 MG Oral Tablet MONTELUKAST SODIUM 09/18/2020 12:0 0:00 AM EST tablet 30 TAKE ONE TABLET BY MOUTH ONCE A DAY TAKE ONE TABLET BY MOUTH ONCE A DAY SOLD: 09/21/2020 [facility] 113-14 mcg/actuation 09/14/2020 12:00:00 AM EST aerosol powdr breath activated 1 INHALE ONE PUFF BY MOUTH TWICE A DAY INHA LE ONE PUFF BY MOUTH TWICE A DAY SOLD: 10/10/2020 [facility] 113-14 mcg/actuation 09/14/2020 12:00:00 AM EST aerosol powdr breath activated 1 INHALE ONE PUFF BY MOUTH TWICE A DAY INHA LE ONE PUFF BY MOUTH TWICE A DAY SOLD: 09/16/2020 [facility] 140 mg/mL 09/12/2020 12:00:00 AM EST auto-injector 1 INJECT 1 SUBCUTANEOUSLY ONCE MONTHLY INJECT 1 SUBCUTANEOUSLY ONCE MONTHLY SOLD: 10/16/2020 [facility] 140 mg/mL 09/12/2020 12:00:00 AM EST auto-injector 1 INJECT 1 SUBCUTANEOUSLY ONCE MONTHLY INJECT 1 SUBCUTANEOUSLY ONCE MONTHLY SOLD: 09/13/2020 [facility] 2 % 08/15/2020 12:00:00 AM EST cream 60 APPLY TO FEET TWICE DAILY APPLY TO FEET TWICE DAILY SOLD: 09/30/2020 [facility] 2 % 08/15/2020 12:00:00 AM EST cream 60 APPLY TO FEET TWICE DAILY APPLY TO FEET TWICE DAILY SOLD: 08/20/2020 [facility] 2 % 08/15/2020 12:00:00 AM EST cream 60 APPLY TO FEET TWICE DAILY APPLY TO FEET TWICE DAILY SOLD: 09/09/2020 [facility] 500 mg 08/04/2020 12:00:00 AM EDT tablet,delayed release (DR/EC) 30 TAKE ONE TABLET BY MOUTH AT BEDTIME TAKE ONE TABLET BY MOUTH AT BEDTIME SOLD: 10/09/2020 [facility] 500 mg 08/04/2020 12:00:00 AM EDT tablet,delayed release (DR/EC) 30 TAKE ONE TABLET BY MOUTH AT BEDTIME TAKE ONE TABLET BY MOUTH AT BEDTIME SOLD: 09/09/2020 [facility] 500 mg 08/04/2020 12:00:00 AM EDT tablet,delayed release (DR/EC) 30 TAKE ONE TABLET BY MOUTH AT BEDTIME TAKE ONE TABLET BY MOUTH AT BEDTIME SOLD: 08/11/2020 [facility] buspirone hydrochloride 10 MG Oral Tablet BUSPIRONE HCL 08/02/2020 12:00:00 AM EDT tablet 30 TAKE ONE TABLET BY MOUTH AT BEDTIME TAKE ONE TABLET BY MOUTH AT BEDTIME SOLD: 08/11/2020 [facility] buspirone hydrochloride 10 MG Oral Tablet BUSPIRONE HCL 08/02/2020 12:00:00 AM EDT tablet 30 TAKE ONE TABLET BY MOUTH AT BEDTIME TAKE ONE TABLET BY MOUTH AT BEDTIME SOLD: 10/09/2020 [facility] buspirone hydrochloride 10 MG Oral Tablet BUSPIRONE HCL 08/02/2020 12:00:00 AM EDT tablet 30 TAKE ONE TABLET BY MOUTH AT BEDTIME TAKE ONE TABLET BY MOUTH AT BEDTIME SOLD: 09/09/2020 [facility] montelukast 10 MG Oral Tablet MONTELUKAST SODIUM 07/28/2020 12:0 0:00 AM EDT tablet 30 TAKE ONE TABLET BY MOUTH EVERY D AY TAKE ONE TABLET BY MOUTH EVERY DAY SOLD: 07/28/2020 [facility] montelukast 10 MG Oral Tablet MONTELUKAST SODIUM 07/28/2020 12:0 0:00 AM EDT tablet 30 TAKE ONE TABLET BY MOUTH EVERY D AY TAKE ONE TABLET BY MOUTH EVERY DAY SOLD: 09/01/2020 [facility] 50 mg 07/24/2020 12:00:00 AM EDT tablet 120 TAKE TWO TABLETS BY MOUTH TWICE A DAY TAKE TWO TABLETS BY MOUTH TWICE A DAY SOLD: 07/28/2020 [facility] 3 mg/actuation 07/12/2020 12:00:00 AM EDT spray,non-aerosol 2 SPRAY ONE SPRAY IN ONE NOSTRIL NEEDED FOR EPISODE OF HYPOGLYCEMIA SPRAY ONE SPRAY IN ONE NOSTRIL NEEDED FOR EPISODE OF HYPOGLYCEMIA SOLD: 07/15/2020 [facility] 3 mg/actuation 07/12/2020 12:00:00 AM EDT spray,non-aerosol 2 SPRAY ONE SPRAY IN ONE NOSTRIL NEEDED FOR EPISODE OF HYPOGLYCEMIA SPRAY ONE SPRAY IN ONE NOSTRIL NEEDED FOR EPISODE OF HYPOGLYCEMIA SOLD: 09/24/2020 [facility] Baqsimi Two Pack Baqsimi Two Pack 07/11/2020 12:00:00 AM EDT active MEDENT ([facility]) 20 % 07/10/2020 12:00:00 AM EDT cream 85 APPLY TO CALLUS ON FEET DAILY APPLY TO CALLUS ON FEET DAILY SOLD: 07/11/2020 [facility] 20 % 07/10/2020 12:00:00 AM EDT cream 85 APPLY TO CALLUS ON FEET DAILY APPLY TO CALLUS ON FEET DAILY SOLD: 09/09/2020 [facility] 20 % 07/10/2020 12:00:00 AM EDT cream 85 APPLY TO CALLUS ON FEET DAILY APPLY TO CALLUS ON FEET DAILY SOLD: 08/11/2020 [facility] BLOOD SUGAR DIAGNOSTIC 07/09/2020 12:00:00 AM EDT strip 100 TEST DIRECTED THREE TIMES A DAY TEST DIRECTED THREE TIMES A DAY SOLD: 09/30/2020 [facility] BLOOD SUGAR DIAGNOSTIC 07/09/2020 12:00:00 AM EDT strip 100 TEST DIRECTED THREE TIMES A DAY TEST DIRECTED THREE TIMES A DAY SOLD: 07/11/2020 [facility] BLOOD SUGAR DIAGNOSTIC 07/09/2020 12:00:00 AM EDT strip 100 TEST DIRECTED THREE TIMES A DAY TEST DIRECTED THREE TIMES A DAY SOLD: 08/21/2020 [facility] montelukast 10 MG Oral Tablet MONTELUKAST SODIUM 07/02/2020 12:0 0:00 AM EDT tablet 30 TAKE ONE TABLET BY MOUTH EVERY D AY TAKE ONE TABLET BY MOUTH EVERY DAY SOLD: 07/07/2020 [facility] 113-14 mcg/actuation 06/16/2020 12:00:00 AM EDT aerosol powdr breath activated 1 INHALE ONE PUFF BY MOUTH TWICE A DAY INHA LE ONE PUFF BY MOUTH TWICE A DAY SOLD: 08/20/2020 [facility] 113-14 mcg/actuation 06/16/2020 12:00:00 AM EDT aerosol powdr breath activated 1 INHALE ONE PUFF BY MOUTH TWICE A DAY INHA LE ONE PUFF BY MOUTH TWICE A DAY SOLD: 06/24/2020 [facility] 113-14 mcg/actuation 06/16/2020 12:00:00 AM EDT aerosol powdr breath activated 1 INHALE ONE PUFF BY MOUTH TWICE A DAY INHA LE ONE PUFF BY MOUTH TWICE A DAY SOLD: 07/28/2020 [facility] 150 mg 06/11/2020 12:00:00 AM EDT tablet 1 TAKE ONE TABLET BY MOUTH EVERY DAY FOR 1 DAY TAKE ONE TABLET BY MOUTH EVERY DAY FOR 1 DAY SOLD: 06/11/2020 [facility] 500 mg 06/11/2020 12:00:00 AM EDT tablet 14 TAKE ONE TABLET BY MOUTH EVERY 12 HOURS FOR 7 DAYS TAKE ONE TABLET BY MOUTH EVERY 12 HOURS FOR 7 DAYS REGGIE [facility] 750 mg 06/09/2020 12:00:00 AM EDT tablet 60 TAKE ONE TABLET BY MOUTH TWICE A DAY TAKE ONE TABLET BY MOUTH TWICE A DAY SOLD: 10/09/2020 [facility] 750 mg 06/09/2020 12:00:00 AM EDT tablet 60 TAKE ONE TABLET BY MOUTH TWICE A DAY TAKE ONE TABLET BY MOUTH TWICE A DAY SOLD: 06/10/2020 [facility] 50 mg 06/09/2020 12:00:00 AM EDT tablet 60 TAKE ONE TABLET BY MOUTH TWICE A DAY TAKE ONE TABLET BY MOUTH TWICE A DAY SOLD: 09/16/2020 [facility] 750 mg 06/09/2020 12:00:00 AM EDT tablet 50 TAKE ONE TABLET BY MOUTH TWICE A DAY TAKE ONE TABLET BY MOUTH TWICE A DAY SOLD: 07/15/2020 [facility] 750 mg 06/09/2020 12:00:00 AM EDT tablet 50 TAKE ONE TABLET BY MOUTH TWICE A DAY TAKE ONE TABLET BY MOUTH TWICE A DAY SOLD: 08/11/2020 [facility] 50 mg 06/09/2020 12:00:00 AM EDT tablet 60 TAKE ONE TABLET BY MOUTH TWICE A DAY TAKE ONE TABLET BY MOUTH TWICE A DAY SOLD: 06/10/2020 [facility] 50 mg 06/09/2020 12:00:00 AM EDT tablet 50 TAKE ONE TABLET BY MOUTH TWICE A DAY TAKE ONE TABLET BY MOUTH TWICE A DAY SOLD: 07/15/2020 [facility] 750 mg 06/09/2020 12:00:00 AM EDT tablet 60 TAKE ONE TABLET BY MOUTH TWICE A DAY TAKE ONE TABLET BY MOUTH TWICE A DAY SOLD: 09/09/2020 [facility] 750 mg 06/09/2020 12:00:00 AM EDT tablet 10 TAKE ONE TABLET BY MOUTH TWICE A DAY TAKE ONE TABLET BY MOUTH TWICE A DAY SOLD: 09/01/2020 [facility] 50 mg 06/09/2020 12:00:00 AM EDT tablet 50 TAKE ONE TABLET BY MOUTH TWICE A DAY TAKE ONE TABLET BY MOUTH TWICE A DAY SOLD: 08/20/2020 [facility] 2 % 06/08/2020 12:00:00 AM EDT cream 60 APPLY TO FEET TWICE DAILY APPLY TO FEET TWICE DAILY SOLD: 07/28/2020 [facility] 2 % 06/08/2020 12:00:00 AM EDT cream 60 APPLY TO FEET TWICE DAILY APPLY TO FEET TWICE DAILY SOLD: 06/10/2020 [facility] 2 % 06/08/2020 12:00:00 AM EDT cream 60 APPLY TO FEET TWICE DAILY APPLY TO FEET TWICE DAILY SOLD: 07/07/2020 [facility] montelukast 10 MG Oral Tablet MONTELUKAST SODIUM 06/06/2020 12:0 0:00 AM EDT tablet 30 TAKE ONE TABLET BY MOUTH EVERY D AY TAKE ONE TABLET BY MOUTH EVERY DAY SOLD: 06/10/2020 [facility] 5 mg 06/05/2020 12:00:00 AM EDT tablet 25 TAKE ONE TABLET BY MOUTH EVERY DAY TAKE ONE TABLET BY MOUTH EVERY DAY SOLD: 07/15/2020 [facility] atorvastatin 10 MG Oral Tablet ATORVASTATIN CALCIUM 06/05/2020 1 2:00:00 AM EDT tablet 30 TAKE ONE TABLET BY MOUTH EVERY D AY TAKE ONE TABLET BY MOUTH EVERY DAY SOLD: 06/10/2020 [facility] 5 mg 06/05/2020 12:00:00 AM EDT tablet 29 TAKE ONE TABLET BY MOUTH EVERY DAY TAKE ONE TABLET BY MOUTH EVERY DAY SOLD: 06/10/2020 [facility] atorvastatin 10 MG Oral Tablet ATORVASTATIN CALCIUM 06/05/2020 1 2:00:00 AM EDT tablet 25 TAKE ONE TABLET BY MOUTH EVERY D AY TAKE ONE TABLET BY MOUTH EVERY DAY SOLD: 08/11/2020 [facility] atorvastatin 10 MG Oral Tablet ATORVASTATIN CALCIUM 06/05/2020 1 2:00:00 AM EDT tablet 25 TAKE ONE TABLET BY MOUTH EVERY D AY TAKE ONE TABLET BY MOUTH EVERY DAY SOLD: 07/15/2020 [facility] 5 mg 06/05/2020 12:00:00 AM EDT tablet 25 TAKE ONE TABLET BY MOUTH EVERY DAY TAKE ONE TABLET BY MOUTH EVERY DAY SOLD: 08/11/2020 [facility] 10 mg 06/01/2020 12:00:00 AM EDT tablet 29 TAKE ONE TABLET BY MOUTH EVERY DAY TAKE ONE TABLET BY MOUTH EVERY DAY SOLD: 06/10/2020 [facility] 10 mg 06/01/2020 12:00:00 AM EDT tablet 29 TAKE ONE TABLET BY MOUTH EVERY DAY TAKE ONE TABLET BY MOUTH EVERY DAY SOLD: 08/11/2020 [facility] 10 mg 06/01/2020 12:00:00 AM EDT tablet 29 TAKE ONE TABLET BY MOUTH EVERY DAY TAKE ONE TABLET BY MOUTH EVERY DAY SOLD: 07/11/2020 [facility] 100 mg 05/30/2020 12:00:00 AM EDT capsule 20 TAKE ONE CAPSULE BY MOUTH TWICE A DAY FOR 10 DAYS TAKE ONE CAPSULE BY MOUTH TWICE A DAY FOR 10 DAYS SOLD : 05/30/2020 [facility] 150 mg 05/30/2020 12:00:00 AM EDT tablet 1 TAKE ONE TABLET BY MOUTH 1 TIME FOR 1 DAY TAKE ONE TABLET BY MOUTH 1 TIME FOR 1 DAY SOLD: 05/30/2020 [facility] 200 mg 05/21/2020 12:00:00 AM EDT tablet 6 TAKE ONE TABLET BY MOUTH THREE TIMES A DAY FOR 2 DAYS TAKE ONE TABLET BY MOUTH THREE TIMES A DAY FOR 2 DAYS SOLD: 05/21/2020 [facility] 100 mg 05/21/2020 12:00:00 AM EDT capsule 14 TAKE ONE CAPSULE BY MOUTH TWICE A DAY FOR 7 DAYS TAKE ONE CAPSULE BY MOUTH TWICE A DAY FOR 7 DAYS SOLD: 05/21/2020 [facility] 5-325 mg 05/12/2020 12:00:00 AM EDT tablet 30 TAKE 1-2 TABLETS BY MOUTH EVERY 4 HOURS NEEDED MAXIMUM DAILY DOSE = EIGHT TABLETS TAKE 1-2 TABLETS BY MOUTH EVERY 4 HOURS NEEDED MAXIMUM DAILY DOSE = EIGHT TABLETS SOLD: 05/21/2020 [facility] 5-325 mg 05/09/2020 12:00:00 AM EDT tablet 30 TAKE 1-2 TABLETS BY MOUTH EVERY 4-6 HOUR NEEDED FOR POST SURGICAL PAIN MAXIMUM DAILY DOSE = EIGHT TABLETS TAKE 1-2 TABLETS BY MOUTH EVERY 4-6 HOUR NEEDED FOR POST SURGICAL PAIN MAXIMUM DAILY DOSE = EIGHT TABLETS SOLD: 05/10/2020 [facility] Acetaminophen 325 MG / Oxycodone Hydrochloride 5 MG Or al Tablet Oxycodone-Acetaminophen 05/02/2020 12:00:00 AM EDT ORAL active [facility] ([facility] 32 gauge x 5/32" 04/26/2020 12:00:00 AM EDT needle 200 USE TWO TIMES A DAY USE TWO TIMES A DAY SOLD: 07/28/2020 [facility] 113-14 mcg/actuation 04/26/2020 12:00:00 AM EDT aerosol powdr breath activated 1 INHALE ONE PUFF BY MOUTH TWICE A DAY INHA LE ONE PUFF BY MOUTH TWICE A DAY SOLD: 05/01/2020 [facility] 32 gauge x 5/32" 04/26/2020 12:00:00 AM EDT needle 200 USE TWO TIMES A DAY USE TWO TIMES A DAY SOLD: 05/01/2020 [facility] Escitalopram 20 MG Oral Tablet ESCITALOPRAM OXALATE 04/24/2020 1 2:00:00 AM EDT tablet 30 TAKE ONE TABLET BY MOUTH EVERY D AY TAKE ONE TABLET BY MOUTH EVERY DAY SOLD: 06/24/2020 [facility] 90 mcg/actuation 04/24/2020 12:00:00 AM EDT HFA aerosol inha ler 6 INHALE TWO PUFFS BY MOUTH EVERY 4 HOURS NEEDED INHALE TWO PUFFS BY MOUTH EVERY 4 HOURS NEEDED SOLD: 09/30/2020 [facility] Escitalopram 20 MG Oral Tablet ESCITALOPRAM OXALATE 04/24/2020 1 2:00:00 AM EDT tablet 30 TAKE ONE TABLET BY MOUTH EVERY D AY TAKE ONE TABLET BY MOUTH EVERY DAY SOLD: 04/26/2020 [facility] 90 mcg/actuation 04/24/2020 12:00:00 AM EDT HFA aerosol inha ler 6 INHALE TWO PUFFS BY MOUTH EVERY 4 HOURS NEEDED INHALE TWO PUFFS BY MOUTH EVERY 4 HOURS NEEDED SOLD: 04/26/2020 [facility] montelukast 10 MG Oral Tablet [Singulair] Singulair 10 MG Si ngulair 10 MG 04/23/2020 12:00:00 AM EDT 1.0 {tablet} active Singulair 10 MG eCW1 ([facility]) terbinafine 250 MG Oral Tablet Terbinafine HCL 04/12/2020 12:00:00 AM EDT ORAL active MEDENT ([facility] 250 mg 04/12/2020 12:00:00 AM EDT tablet 30 TAKE ONE TABLET BY MOUTH EVERY DAY TAKE ONE TABLET BY MOUTH EVERY DAY SOLD: 04/21/2020 [facility] 250 mg 04/12/2020 12:00:00 AM EDT tablet 30 TAKE ONE TABLET BY MOUTH EVERY DAY TAKE ONE TABLET BY MOUTH EVERY DAY SOLD: 06/10/2020 [facility] 100 unit/mL 04/11/2020 12:00:00 AM EDT solution 10 INJECT 25 UNITS UNDER THE SKIN DIRECTED * MAXIMUM DAILY DOSE = 25 UNITS INJECT 25 UNITS UNDER THE SKIN DIRECTED * MAXIMUM DAILY DOSE = 25 UNITS SOLD: 04/21/2020 [facility] 100 unit/mL 04/11/2020 12:00:00 AM EDT solution 10 INJECT 25 UNITS UNDER THE SKIN DIRECTED * MAXIMUM DAILY DOSE = 25 UNITS INJECT 25 UNITS UNDER THE SKIN DIRECTED * MAXIMUM DAILY DOSE = 25 UNITS SOLD: 08/21/2020 [facility] 5-325 mg 04/05/2020 12:00:00 AM EDT tablet 20 TAKE ONE TABLET BY MOUTH EVERY 6 HOURS NEEDED FOR PAIN. MAXIMUM DAILY DOSE = 4 TAKE ONE TABLET BY MOUTH EVERY 6 HOURS NEEDED FOR PAIN. MAXIMUM DAILY DOSE = 4 SOLD: 04/05/2020 [facility] Acetaminophen 325 MG / Hydrocodone Bitartrate 5 MG Ora l Tablet Hydrocodone Bitartrate/Acetaminophen 04/05/2020 12:00:00 AM EDT ORAL active [facility] ([facility]) 2 % 03/31/2020 12:00:00 AM EDT cream 60 APPLY TO FEET TWICE DAILY APPLY TO FEET TWICE DAILY SOLD: 05/01/2020 [facility] 2 % 03/31/2020 12:00:00 AM EDT cream 60 APPLY TO FEET TWICE DAILY APPLY TO FEET TWICE DAILY SOLD: 04/10/2020 [facility] 2 % 03/31/2020 12:00:00 AM EDT cream 60 APPLY TO FEET TWICE DAILY APPLY TO FEET TWICE DAILY SOLD: 05/21/2020 [facility] Ketoconazole 20 MG/ML Topical Cream Ketoconazole 03/30/2020 12:00:00 AM EDT active [facility] ([facility] montelukast 10 MG Oral Tablet MONTELUKAST SODIUM 03/27/2020 12:0 0:00 AM EDT tablet 30 TAKE ONE TABLET BY MOUTH EVERY D AY TAKE ONE TABLET BY MOUTH EVERY DAY SOLD: 03/29/2020 [facility] montelukast 10 MG Oral Tablet MONTELUKAST SODIUM 03/27/2020 12:0 0:00 AM EDT tablet 30 TAKE ONE TABLET BY MOUTH EVERY D AY TAKE ONE TABLET BY MOUTH EVERY DAY SOLD: 04/26/2020 [facility] 500 mg 03/09/2020 12:00:00 AM EDT tablet,delayed release (DR/EC) 30 TAKE ONE TABLET BY MOUTH AT BEDTIME TAKE ONE TABLET BY MOUTH AT BEDTIME SOLD: 03/16/2020 [facility] 500 mg 03/09/2020 12:00:00 AM EDT tablet,delayed release (DR/EC) 23 TAKE ONE TABLET BY MOUTH AT BEDTIME TAKE ONE TABLET BY MOUTH AT BEDTIME SOLD: 06/10/2020 [facility] 500 mg 03/09/2020 12:00:00 AM EDT tablet,delayed release (DR/EC) 30 TAKE ONE TABLET BY MOUTH AT BEDTIME TAKE ONE TABLET BY MOUTH AT BEDTIME SOLD: 04/10/2020 [facility] Divalproex Sodium 500 MG Delayed Release Oral Tablet Divalpr oex Sodium 03/09/2020 12:00:00 AM EDT active MEDENT ([facility]) 500 mg 03/09/2020 12:00:00 AM EDT tablet,delayed release (DR/EC) 30 TAKE ONE TABLET BY MOUTH AT BEDTIME TAKE ONE TABLET BY MOUTH AT BEDTIME SOLD: 07/07/2020 [facility] 500 mg 03/09/2020 12:00:00 AM EDT tablet,delayed release (DR/EC) 23 TAKE ONE TABLET BY MOUTH AT BEDTIME TAKE ONE TABLET BY MOUTH AT BEDTIME SOLD: 05/10/2020 [facility] 5-325 mg 03/08/2020 12:00:00 AM EDT tablet 20 TAKE ONE TO TWO TABLETS BY MOUTH EVERY 4 TO 6 HOURS FOR POST PAIN MAXIMUM DAILY DOSE = 6 TAKE ONE TO TWO TABLETS BY MOUTH EVERY 4 TO 6 HOURS FOR POST PAIN MAXIMUM DAILY DOSE = 6 SOLD: 03/08/2020 [facility] Acetaminophen 325 MG / Hydrocodone Bitartrate 5 MG Ora l Tablet Hydrocodone-Acetaminophen 03/01/2020 12:00:00 AM EDT completed [facility] ([facility]) 140 mg/mL 02/29/2020 12:00:00 AM EDT auto-injector 1 INJECT 1 SUBCUTANEOUSLY ONCE MONTHLY INJECT 1 SUBCUTANEOUSLY ONCE MONTHLY SOLD: 05/10/2020 [facility] 140 mg/mL 02/29/2020 12:00:00 AM EDT auto-injector 1 INJECT 1 SUBCUTANEOUSLY ONCE MONTHLY INJECT 1 SUBCUTANEOUSLY ONCE MONTHLY SOLD: 08/11/2020 [facility] 140 mg/mL 02/29/2020 12:00:00 AM EDT auto-injector 1 INJECT 1 SUBCUTANEOUSLY ONCE MONTHLY INJECT 1 SUBCUTANEOUSLY ONCE MONTHLY SOLD: 06/10/2020 [facility] 140 mg/mL 02/29/2020 12:00:00 AM EDT auto-injector 1 INJECT 1 SUBCUTANEOUSLY ONCE MONTHLY INJECT 1 SUBCUTANEOUSLY ONCE MONTHLY SOLD: 03/04/2020 [facility] 140 mg/mL 02/29/2020 12:00:00 AM EDT auto-injector 1 INJECT 1 SUBCUTANEOUSLY ONCE MONTHLY INJECT 1 SUBCUTANEOUSLY ONCE MONTHLY SOLD: 04/10/2020 [facility] 140 mg/mL 02/29/2020 12:00:00 AM EDT auto-injector 1 INJECT 1 SUBCUTANEOUSLY ONCE MONTHLY INJECT 1 SUBCUTANEOUSLY ONCE MONTHLY SOLD: 07/07/2020 [facility] 20 % 02/24/2020 12:00:00 AM EDT cream 85 APPLY TO CALLUS ON FEET DAILY APPLY TO CALLUS ON FEET DAILY SOLD: 05/10/2020 [facility] 20 % 02/24/2020 12:00:00 AM EDT cream 85 APPLY TO CALLUS ON FEET DAILY APPLY TO CALLUS ON FEET DAILY SOLD: 03/04/2020 [facility] 20 % 02/24/2020 12:00:00 AM EDT cream 85 APPLY TO CALLUS ON FEET DAILY APPLY TO CALLUS ON FEET DAILY SOLD: 04/10/2020 [facility] 20 % 02/24/2020 12:00:00 AM EDT cream 85 APPLY TO CALLUS ON FEET DAILY APPLY TO CALLUS ON FEET DAILY SOLD: 06/10/2020 [facility] BLOOD SUGAR DIAGNOSTIC 02/20/2020 12:00:00 AM EDT strip 100 TEST DIRECTE THREE TIMES A DAY MAXIMUM DAILY DOSE =3 TEST DIRECTE THREE TIMES A DAY MAXIMUM DAILY DOSE =3 SOLD: 05/01/2020 [facility] BLOOD SUGAR DIAGNOSTIC 02/20/2020 12:00:00 AM EDT strip 100 TEST DIRECTE THREE TIMES A DAY MAXIMUM DAILY DOSE =3 TEST DIRECTE THREE TIMES A DAY MAXIMUM DAILY DOSE =3 SOLD: 06/10/2020 [facility] BLOOD SUGAR DIAGNOSTIC 02/20/2020 12:00:00 AM EDT strip 100 TEST DIRECTE THREE TIMES A DAY MAXIMUM DAILY DOSE =3 TEST DIRECTE THREE TIMES A DAY MAXIMUM DAILY DOSE =3 SOLD: 03/29/2020 [facility] BLOOD SUGAR DIAGNOSTIC 02/20/2020 12:00:00 AM EDT strip 100 TEST DIRECTE THREE TIMES A DAY MAXIMUM DAILY DOSE =3 TEST DIRECTE THREE TIMES A DAY MAXIMUM DAILY DOSE =3 SOLD: 02/23/2020 [facility] 100 unit/mL 01/30/2020 12:00:00 AM EDT solution 10 INJECT 25 UNITS UNDER THE SKIN DIRECTED MAX OF 25 UNITS PER DAY, - DISCARD ANY UNUSED PORTION AFTER 30 DAYS OPEN PER HEATING EQUIPMENT REPAIRER INJECT 25 UNITS UNDER THE SKIN DIRECT ED MAX OF 25 UNITS PER DAY, - DISCARD ANY UNUSED PORTION AFTER 30 DAYS OPEN PER HEATING EQUIPMENT REPAIRER SOLD: 02/06/2020 [facility] buspirone hydrochloride 10 MG Oral Tablet BUSPIRONE HCL 01/26/2020 12:00:00 AM EDT tablet 30 TAKE ONE TABLET BY MOUTH AT BEDTIME TAKE ONE TABLET BY MOUTH AT BEDTIME SOLD: 06/10/2020 [facility] buspirone hydrochloride 10 MG Oral Tablet BUSPIRONE HCL 01/26/2020 12:00:00 AM EDT tablet 30 TAKE ONE TABLET BY MOUTH AT BEDTIME TAKE ONE TABLET BY MOUTH AT BEDTIME SOLD: 04/10/2020 [facility] montelukast 10 MG Oral Tablet MONTELUKAST SODIUM 01/26/2020 12:0 0:00 AM EDT tablet 30 TAKE ONE TABLET BY MOUTH EVERY D AY TAKE ONE TABLET BY MOUTH EVERY DAY SOLD: 01/29/2020 [facility] buspirone hydrochloride 10 MG Oral Tablet BUSPIRONE HCL 01/26/2020 12:00:00 AM EDT tablet 25 TAKE ONE TABLET BY MOUTH AT BEDTIME TAKE ONE TABLET BY MOUTH AT BEDTIME SOLD: 07/15/2020 [facility] buspirone hydrochloride 10 MG Oral Tablet BUSPIRONE HCL 01/26/2020 12:00:00 AM EDT tablet 30 TAKE ONE TABLET BY MOUTH AT BEDTIME TAKE ONE TABLET BY MOUTH AT BEDTIME SOLD: 03/04/2020 [facility] montelukast 10 MG Oral Tablet MONTELUKAST SODIUM 01/26/2020 12:0 0:00 AM EDT tablet 30 TAKE ONE TABLET BY MOUTH EVERY D AY TAKE ONE TABLET BY MOUTH EVERY DAY SOLD: 03/04/2020 [facility] buspirone hydrochloride 10 MG Oral Tablet BUSPIRONE HCL 01/26/2020 12:00:00 AM EDT tablet 30 TAKE ONE TABLET BY MOUTH AT BEDTIME TAKE ONE TABLET BY MOUTH AT BEDTIME SOLD: 01/29/2020 [facility] buspirone hydrochloride 10 MG Oral Tablet BUSPIRONE HCL 01/26/2020 12:00:00 AM EDT tablet 30 TAKE ONE TABLET BY MOUTH AT BEDTIME TAKE ONE TABLET BY MOUTH AT BEDTIME SOLD: 05/10/2020 [facility] Acetaminophen 325 MG / Hydrocodone Bitartrate 5 MG Ora l Tablet Hydrocodone-Acetaminophen 01/23/2020 12:00:00 AM EDT completed [facility] ([facility] 100 unit/mL (3 mL) 01/17/2020 12:00:00 AM EDT insulin pen 15 INJECT 12 UNITS IN THE MORNING AND 6 UNITS IN THE EVENING MAXIMUM DAILY DOSE = 18 UNITS INJECT 12 UNITS IN THE MORNING AND 6 UNITS IN THE EVENING MAXIMUM DAILY DOSE = 18 UNITS SOLD: 04/10/2020 [facility] 100 unit/mL (3 mL) 01/17/2020 12:00:00 AM EDT insulin pen 15 INJECT 12 UNITS IN THE MORNING AND 6 UNITS IN THE EVENING MAXIMUM DAILY DOSE = 18 UNITS INJECT 12 UNITS IN THE MORNING AND 6 UNITS IN THE EVENING MAXIMUM DAILY DOSE = 18 UNITS SOLD: 09/09/2020 [facility] 100 unit/mL (3 mL) 01/17/2020 12:00:00 AM EDT insulin pen 15 INJECT 12 UNITS IN THE MORNING AND 6 UNITS IN THE EVENING MAXIMUM DAILY DOSE = 18 UNITS INJECT 12 UNITS IN THE MORNING AND 6 UNITS IN THE EVENING MAXIMUM DAILY DOSE = 18 UNITS SOLD: 01/18/2020 [facility] 100 unit/mL (3 mL) 01/17/2020 12:00:00 AM EDT insulin pen 15 INJECT 12 UNITS IN THE MORNING AND 6 UNITS IN THE EVENING MAXIMUM DAILY DOSE = 18 UNITS INJECT 12 UNITS IN THE MORNING AND 6 UNITS IN THE EVENING MAXIMUM DAILY DOSE = 18 UNITS SOLD: 06/24/2020 [facility] 5-325 mg 01/16/2020 12:00:00 AM EDT tablet 30 TAKE ONE TABLET BY MOUTH EVERY 8 HOURS NEEDED FOR PAIN MAXIMUM DAILY DOSE = 3 TAKE ONE TABLET BY MOUTH EVERY 8 HOURS NEEDED FOR PAIN MAXIMUM DAILY DOSE = 3 SOLD: 01/18/2020 [facility] 100 mg 01/14/2020 12:00:00 AM EDT capsule 20 TAKE ONE CAPSULE BY MOUTH TWICE A DAY FOR 10 DAYS TAKE ONE CAPSULE BY MOUTH TWICE A DAY FOR 10 DAYS SOLD : 01/14/2020 [facility] 10 mg 01/14/2020 12:00:00 AM EDT tablet 20 TAKE ONE TABLET BY MOUTH EVERY 6 HOURS WITH FOOD NEEDED FOR PAIN FOR 5 DAYS TAKE ONE TABLET BY MOUTH EVERY 6 HOURS WITH FOOD NEEDED FOR PAIN FOR 5 DAYS SOLD: 01/14/2020 [facility] Acetaminophen 325 MG / Oxycodone Hydrochloride 5 MG Or al Tablet Oxycodone-Acetaminophen 01/12/2020 12:00:00 AM EDT completed [facility] ([facility] ) 0.5 mL 30 gauge x 1/2" 01/04/2020 12:00:00 AM EDT syringe 100 1 FOUR TIMES A DAY SUBCUTANEOUSLY 1 FOUR TIMES A DAY SUBCUTANEOUSLY SOLD: 02/23/2020 [facility] 0.5 mL 30 gauge x 1/2" 01/04/2020 12:00:00 AM EDT syringe 100 1 FOUR TIMES A DAY SUBCUTANEOUSLY 1 FOUR TIMES A DAY SUBCUTANEOUSLY SOLD: 01/29/2020 [facility] 0.5 mL 30 gauge x 1/2" 01/04/2020 12:00:00 AM EDT syringe 100 1 FOUR TIMES A DAY SUBCUTANEOUSLY 1 FOUR TIMES A DAY SUBCUTANEOUSLY SOLD: 03/16/2020 [facility] 0.5 mL 30 gauge x 1/2" 01/04/2020 12:00:00 AM EDT syringe 100 1 FOUR TIMES A DAY SUBCUTANEOUSLY 1 FOUR TIMES A DAY SUBCUTANEOUSLY SOLD: 01/06/2020 [facility] 0.5 mL 30 gauge x 1/2" 01/04/2020 12:00:00 AM EDT syringe 100 1 FOUR TIMES A DAY SUBCUTANEOUSLY 1 FOUR TIMES A DAY SUBCUTANEOUSLY SOLD: 04/10/2020 [facility] 0.5 mL 30 gauge x 1/2" 01/04/2020 12:00:00 AM EDT syringe 100 1 FOUR TIMES A DAY SUBCUTANEOUSLY 1 FOUR TIMES A DAY SUBCUTANEOUSLY SOLD: 05/10/2020 [facility] 750 mg 12/27/2019 12:00:00 AM EDT tablet 60 TAKE ONE TABLET BY MOUTH TWICE A DAY TAKE ONE TABLET BY MOUTH TWICE A DAY SOLD: 12/31/2019 [facility] 50 mg 12/27/2019 12:00:00 AM EDT tablet 60 TAKE ONE TABLET BY MOUTH TWICE A DAY TAKE ONE TABLET BY MOUTH TWICE A DAY SOLD: 12/31/2019 [facility] 750 mg 12/27/2019 12:00:00 AM EDT tablet 60 TAKE ONE TABLET BY MOUTH TWICE A DAY TAKE ONE TABLET BY MOUTH TWICE A DAY SOLD: 05/10/2020 [facility] 750 mg 12/27/2019 12:00:00 AM EDT tablet 60 TAKE ONE TABLET BY MOUTH TWICE A DAY TAKE ONE TABLET BY MOUTH TWICE A DAY SOLD: 01/29/2020 [facility] Levetiracetam 750 MG Oral Tablet Levetiracetam 12/27/2019 12:00:00 AM EDT active [facility] ([facility] Primidone 50 MG Oral Tablet Primidone 12/27/2019 12:00:00 AM EDT ORAL active MEDENT ([facility]) 750 mg 12/27/2019 12:00:00 AM EDT tablet 60 TAKE ONE TABLET BY MOUTH TWICE A DAY TAKE ONE TABLET BY MOUTH TWICE A DAY SOLD: 04/10/2020 [facility] 50 mg 12/27/2019 12:00:00 AM EDT tablet 60 TAKE ONE TABLET BY MOUTH TWICE A DAY TAKE ONE TABLET BY MOUTH TWICE A DAY SOLD: 05/10/2020 [facility] 50 mg 12/27/2019 12:00:00 AM EDT tablet 60 TAKE ONE TABLET BY MOUTH TWICE A DAY TAKE ONE TABLET BY MOUTH TWICE A DAY SOLD: 04/10/2020 [facility] 750 mg 12/27/2019 12:00:00 AM EDT tablet 60 TAKE ONE TABLET BY MOUTH TWICE A DAY TAKE ONE TABLET BY MOUTH TWICE A DAY SOLD: 03/04/2020 [facility] 50 mg 12/27/2019 12:00:00 AM EDT tablet 60 TAKE ONE TABLET BY MOUTH TWICE A DAY TAKE ONE TABLET BY MOUTH TWICE A DAY SOLD: 01/29/2020 [facility] 50 mg 12/27/2019 12:00:00 AM EDT tablet 60 TAKE ONE TABLET BY MOUTH TWICE A DAY TAKE ONE TABLET BY MOUTH TWICE A DAY SOLD: 03/04/2020 [facility] 10 mg 12/05/2019 12:00:00 AM EST tablet 30 TAKE ONE TABLET BY MOUTH EVERY DAY TAKE ONE TABLET BY MOUTH EVERY DAY SOLD: 05/10/2020 [facility] 5 mg 12/05/2019 12:00:00 AM EST tablet 30 TAKE ONE TABLET BY MOUTH EVERY DAY TAKE ONE TABLET BY MOUTH EVERY DAY SOLD: 01/29/2020 [facility] 5 mg 12/05/2019 12:00:00 AM EST tablet 30 TAKE ONE TABLET BY MOUTH EVERY DAY TAKE ONE TABLET BY MOUTH EVERY DAY SOLD: 01/06/2020 [facility] 5 mg 12/05/2019 12:00:00 AM EST tablet 30 TAKE ONE TABLET BY MOUTH EVERY DAY TAKE ONE TABLET BY MOUTH EVERY DAY SOLD: 04/10/2020 [facility] 5 mg 12/05/2019 12:00:00 AM EST tablet 30 TAKE ONE TABLET BY MOUTH EVERY DAY TAKE ONE TABLET BY MOUTH EVERY DAY SOLD: 12/14/2019 [facility] 10 mg 12/05/2019 12:00:00 AM EST tablet 30 TAKE ONE TABLET BY MOUTH EVERY DAY TAKE ONE TABLET BY MOUTH EVERY DAY SOLD: 03/04/2020 [facility] 10 mg 12/05/2019 12:00:00 AM EST tablet 30 TAKE ONE TABLET BY MOUTH EVERY DAY TAKE ONE TABLET BY MOUTH EVERY DAY SOLD: 01/29/2020 [facility] 10 mg 12/05/2019 12:00:00 AM EST tablet 30 TAKE ONE TABLET BY MOUTH EVERY DAY TAKE ONE TABLET BY MOUTH EVERY DAY SOLD: 04/10/2020 [facility] 10 mg 12/05/2019 12:00:00 AM EST tablet 30 TAKE ONE TABLET BY MOUTH EVERY DAY TAKE ONE TABLET BY MOUTH EVERY DAY SOLD: 05/10/2020 [facility] 10 mg 12/05/2019 12:00:00 AM EST tablet 30 TAKE ONE TABLET BY MOUTH EVERY DAY TAKE ONE TABLET BY MOUTH EVERY DAY SOLD: 01/29/2020 [facility] 10 mg 12/05/2019 12:00:00 AM EST tablet 30 TAKE ONE TABLET BY MOUTH EVERY DAY TAKE ONE TABLET BY MOUTH EVERY DAY SOLD: 01/06/2020 [facility] 10 mg 12/05/2019 12:00:00 AM EST tablet 30 TAKE ONE TABLET BY MOUTH EVERY DAY TAKE ONE TABLET BY MOUTH EVERY DAY SOLD: 04/10/2020 [facility] 10 mg 12/05/2019 12:00:00 AM EST tablet 30 TAKE ONE TABLET BY MOUTH EVERY DAY TAKE ONE TABLET BY MOUTH EVERY DAY SOLD: 03/04/2020 [facility] 10 mg 12/05/2019 12:00:00 AM EST tablet 30 TAKE ONE TABLET BY MOUTH EVERY DAY TAKE ONE TABLET BY MOUTH EVERY DAY SOLD: 01/06/2020 [facility] 5 mg 12/05/2019 12:00:00 AM EST tablet 30 TAKE ONE TABLET BY MOUTH EVERY DAY TAKE ONE TABLET BY MOUTH EVERY DAY SOLD: 05/10/2020 [facility] 10 mg 12/05/2019 12:00:00 AM EST tablet 30 TAKE ONE TABLET BY MOUTH EVERY DAY TAKE ONE TABLET BY MOUTH EVERY DAY SOLD: 12/14/2019 [facility] 5 mg 12/05/2019 12:00:00 AM EST tablet 30 TAKE ONE TABLET BY MOUTH EVERY DAY TAKE ONE TABLET BY MOUTH EVERY DAY SOLD: 03/04/2020 [facility] 10 mg 12/05/2019 12:00:00 AM EST tablet 30 TAKE ONE TABLET BY MOUTH EVERY DAY TAKE ONE TABLET BY MOUTH EVERY DAY SOLD: 12/14/2019 [facility] montelukast 10 MG Oral Tablet MONTELUKAST SODIUM 12/02/2019 12:0 0:00 AM EST tablet 30 TAKE ONE TABLET BY MOUTH EVERY D AY TAKE ONE TABLET BY MOUTH EVERY DAY SOLD: 12/14/2019 [facility] montelukast 10 MG Oral Tablet MONTELUKAST SODIUM 12/02/2019 12:0 0:00 AM EST tablet 30 TAKE ONE TABLET BY MOUTH EVERY D AY TAKE ONE TABLET BY MOUTH EVERY DAY SOLD: 01/06/2020 [facility] 113-14 mcg/actuation 11/23/2019 12:00:00 AM EST aerosol powdr breath activated 1 INHALE ONE PUFF BY MOUTH TWICE A DAY INHA LE ONE PUFF BY MOUTH TWICE A DAY SOLD: 05/21/2020 [facility] 113-14 mcg/actuation 11/23/2019 12:00:00 AM EST aerosol powdr breath activated 1 INHALE ONE PUFF BY MOUTH TWICE A DAY INHA LE ONE PUFF BY MOUTH TWICE A DAY SOLD: 01/29/2020 [facility] 113-14 mcg/actuation 11/23/2019 12:00:00 AM EST aerosol powdr breath activated 1 INHALE ONE PUFF BY MOUTH TWICE A DAY INHA LE ONE PUFF BY MOUTH TWICE A DAY SOLD: 12/31/2019 [facility] 113-14 mcg/actuation 11/23/2019 12:00:00 AM EST aerosol powdr breath activated 1 INHALE ONE PUFF BY MOUTH TWICE A DAY INHA LE ONE PUFF BY MOUTH TWICE A DAY SOLD: 03/04/2020 [facility] 113-14 mcg/actuation 11/23/2019 12:00:00 AM EST aerosol powdr breath activated 1 INHALE ONE PUFF BY MOUTH TWICE A DAY INHA LE ONE PUFF BY MOUTH TWICE A DAY SOLD: 11/30/2019 [facility] 113-14 mcg/actuation 11/23/2019 12:00:00 AM EST aerosol powdr breath activated 1 INHALE ONE PUFF BY MOUTH TWICE A DAY INHA LE ONE PUFF BY MOUTH TWICE A DAY SOLD: 04/10/2020 [facility] 20 % 10/31/2019 12:00:00 AM EST cream 85 APPLY TO CALLUS ON FEET DAILY APPLY TO CALLUS ON FEET DAILY SOLD: 12/01/2019 [facility] 20 % 10/31/2019 12:00:00 AM EST cream 85 APPLY TO CALLUS ON FEET DAILY APPLY TO CALLUS ON FEET DAILY SOLD: 12/31/2019 [facility] 100 unit/mL (3 mL) 10/31/2019 12:00:00 AM EST insulin pen 24 INJECT 14 UNITS EVERY MORNING AND 10 UNITS IN THE EVENING MAXIMUM DAILY DOSE = 24 UNITS INJECT 14 UNITS EVERY MORNING AND 10 UNITS IN THE EVENING MAXIMUM DAILY DOSE = 24 UNITS SOLD: 11/06/2019 [facility] 20 % 10/31/2019 12:00:00 AM EST cream 85 APPLY TO CALLUS ON FEET DAILY APPLY TO CALLUS ON FEET DAILY SOLD: 01/29/2020 [facility] 20 % 10/31/2019 12:00:00 AM EST cream 85 APPLY TO CALLUS ON FEET DAILY APPLY TO CALLUS ON FEET DAILY SOLD: 11/06/2019 [facility] BLOOD SUGAR DIAGNOSTIC 10/27/2019 12:00:00 AM EST strip 100 TEST DIRECTED THREE TIMES A DAY TEST DIRECTED THREE TIMES A DAY SOLD: 10/28/2019 [facility] 32 gauge x 5/32" 10/27/2019 12:00:00 AM EST needle 200 USE TWO TIMES A DAY USE TWO TIMES A DAY SOLD: 10/28/2019 [facility] BLOOD SUGAR DIAGNOSTIC 10/27/2019 12:00:00 AM EST strip 100 TEST DIRECTED THREE TIMES A DAY TEST DIRECTED THREE TIMES A DAY SOLD: 01/22/2020 [facility] BLOOD SUGAR DIAGNOSTIC 10/27/2019 12:00:00 AM EST strip 100 TEST DIRECTED THREE TIMES A DAY TEST DIRECTED THREE TIMES A DAY SOLD: 12/25/2019 [facility] BLOOD SUGAR DIAGNOSTIC 10/27/2019 12:00:00 AM EST strip 100 TEST DIRECTED THREE TIMES A DAY TEST DIRECTED THREE TIMES A DAY SOLD: 11/30/2019 [facility] 32 gauge x 5/32" 10/27/2019 12:00:00 AM EST needle 200 USE TWO TIMES A DAY USE TWO TIMES A DAY SOLD: 01/29/2020 [facility] benzonatate 200 MG Oral Capsule BENZONATATE 10/05/2019 12:00:00 AM EST capsule 30 TAKE ONE CAPSULE BY MOUTH THREE TIMES A DAY FOR 10 DAYS TAKE ONE CAPSULE BY MOUTH THREE TIMES A DAY FOR 10 DAYS SOLD: 10/05/2019 [facility] 20 mg 10/05/2019 12:00:00 AM EST tablet 10 TAKE TWO TABLETS BY MOUTH EVERY MORNING WITH FOOD FOR 5 DAYS TAKE TWO TABLETS BY MOUTH EVERY MORNING WITH FOOD FOR 5 DAYS SOLD: 10/05/2019 [facility] 250 mg 10/05/2019 12:00:00 AM EST tablet 6 TAKE TWO TABLETS BY MOUTH AT ONCE ON THE FIRST DAY THEN TAKE ONE DAILY THEREAFTER TAKE TWO TABLETS BY MOUTH AT ONCE ON THE FIRST DAY THEN TAKE ONE DAILY THEREAFTER SOLD: 10/05/2019 [facility] 120 ACTUAT Budesonide 0.08 MG/ACTUAT / f ormoterol fumarate 0.0045 MG/ACTUAT Metered Dose Inhaler [Symbicort] Symbicort 80-4.5 MCG/ACT Symbicort 80-4.5 MCG/ACT 10/03/2019 12:00:00 AM EST active 2 puffs eCW1 ([facility]) 120 ACTUAT Budesonide 0.08 MG/ACTUAT / f ormoterol fumarate 0.0045 MG/ACTUAT Metered Dose Inhaler [Symbicort] Symbicort 80-4.5 MCG/ACT Symbicort 80-4.5 MCG/ACT 10/03/2019 12:00:00 AM EST active 2 puffs eCW1 ([facility]) 100 unit/mL 09/07/2019 12:00:00 AM EST solution 10 INJECT 25 UNITS SUBCUTANEOUSLY DIRECTED MAXIMUM DAILY DOSE = 25 UNITS INJECT 25 UNITS SUBCUTANEOUSLY DIRECTED MAXIMUM DAILY DOSE = 25 UNITS SOLD: 09/13/2019 [facility] BLOOD SUGAR DIAGNOSTIC 09/06/2019 12:00:00 AM EST strip 100 USE DIRECTED UP TO THREE TIMES A DAY USE DIRECTED UP TO THREE TIMES A DAY SOLD: 09/07/20 [facility] 140 mg/mL 09/05/2019 12:00:00 AM EST auto-injector 1 INJECT 1 SUBCUTANEOUSLY ONCE MONTHLY INJECT 1 SUBCUTANEOUSLY ONCE MONTHLY SOLD: 01/29/2020 [facility] 140 mg/mL 09/05/2019 12:00:00 AM EST auto-injector 1 INJECT 1 SUBCUTANEOUSLY ONCE MONTHLY INJECT 1 SUBCUTANEOUSLY ONCE MONTHLY SOLD: 12/31/2019 [facility] 140 mg/mL 09/05/2019 12:00:00 AM EST auto-injector 1 INJECT 1 SUBCUTANEOUSLY ONCE MONTHLY INJECT 1 SUBCUTANEOUSLY ONCE MONTHLY SOLD: 12/02/2019 [facility] 140 mg/mL 09/05/2019 12:00:00 AM EST auto-injector 1 INJECT 1 SUBCUTANEOUSLY ONCE MONTHLY INJECT 1 SUBCUTANEOUSLY ONCE MONTHLY SOLD: 09/07/2019 [facility] 140 mg/mL 09/05/2019 12:00:00 AM EST auto-injector 1 INJECT 1 SUBCUTANEOUSLY ONCE MONTHLY INJECT 1 SUBCUTANEOUSLY ONCE MONTHLY SOLD: 11/06/2019 [facility] 140 mg/mL 09/05/2019 12:00:00 AM EST auto-injector 1 INJECT 1 SUBCUTANEOUSLY ONCE MONTHLY INJECT 1 SUBCUTANEOUSLY ONCE MONTHLY SOLD: 10/04/2019 [facility] buspirone hydrochloride 10 MG Oral Tablet BUSPIRONE HCL 07/26/2019 12:00:00 AM EDT tablet 30 TAKE ONE TABLET BY MOUTH MELANY RY NIGHT AT BEDTIME TAKE ONE TABLET BY MOUTH EVERY NIGHT AT BEDTIME SOLD: 12/01/2019 [facility] buspirone hydrochloride 10 MG Oral Tablet BUSPIRONE HCL 07/26/2019 12:00:00 AM EDT tablet 30 TAKE ONE TABLET BY MOUTH MELANY RY NIGHT AT BEDTIME TAKE ONE TABLET BY MOUTH EVERY NIGHT AT BEDTIME SOLD: 12/31/2019 [facility] buspirone hydrochloride 10 MG Oral Tablet BUSPIRONE HCL 07/26/2019 12:00:00 AM EDT tablet 30 TAKE ONE TABLET BY MOUTH MELANY RY NIGHT AT BEDTIME TAKE ONE TABLET BY MOUTH EVERY NIGHT AT BEDTIME SOLD: 08/29/2019 [facility] buspirone hydrochloride 10 MG Oral Tablet BUSPIRONE HCL 07/26/2019 12:00:00 AM EDT tablet 30 TAKE ONE TABLET BY MOUTH MELANY RY NIGHT AT BEDTIME TAKE ONE TABLET BY MOUTH EVERY NIGHT AT BEDTIME SOLD: 10/04/2019 [facility] buspirone hydrochloride 10 MG Oral Tablet BUSPIRONE HCL 07/26/2019 12:00:00 AM EDT tablet 30 TAKE ONE TABLET BY MOUTH MELANY RY NIGHT AT BEDTIME TAKE ONE TABLET BY MOUTH EVERY NIGHT AT BEDTIME SOLD: 11/06/2019 [facility] 500 mg 07/20/2019 12:00:00 AM EDT tablet,delayed release (DR/EC) 30 TAKE ONE TABLET BY MOUTH AT BEDTIME TAKE ONE TABLET BY MOUTH AT BEDTIME SOLD: 01/06/2020 [facility] 500 mg 07/20/2019 12:00:00 AM EDT tablet,delayed release (DR/EC) 30 TAKE ONE TABLET BY MOUTH AT BEDTIME TAKE ONE TABLET BY MOUTH AT BEDTIME SOLD: 11/06/2019 [facility] 500 mg 07/20/2019 12:00:00 AM EDT tablet,delayed release (DR/EC) 30 TAKE ONE TABLET BY MOUTH AT BEDTIME TAKE ONE TABLET BY MOUTH AT BEDTIME SOLD: 09/22/2019 [facility] 500 mg 07/20/2019 12:00:00 AM EDT tablet,delayed release (DR/EC) 30 TAKE ONE TABLET BY MOUTH AT BEDTIME TAKE ONE TABLET BY MOUTH AT BEDTIME SOLD: 02/10/2020 [facility] 500 mg 07/20/2019 12:00:00 AM EDT tablet,delayed release (DR/EC) 30 TAKE ONE TABLET BY MOUTH AT BEDTIME TAKE ONE TABLET BY MOUTH AT BEDTIME SOLD: 12/14/2019 [facility] 50 mg 07/01/2019 12:00:00 AM EDT tablet 60 TAKE ONE TABLET BY MOUTH TWICE A DAY TAKE ONE TABLET BY MOUTH TWICE A DAY SOLD: 08/29/2019 [facility] 50 mg 07/01/2019 12:00:00 AM EDT tablet 60 TAKE ONE TABLET BY MOUTH TWICE A DAY TAKE ONE TABLET BY MOUTH TWICE A DAY SOLD: 10/04/2019 [facility] 750 mg 07/01/2019 12:00:00 AM EDT tablet 60 TAKE ONE TABLET BY MOUTH TWICE A DAY TAKE ONE TABLET BY MOUTH TWICE A DAY SOLD: 12/01/2019 [facility] 750 mg 07/01/2019 12:00:00 AM EDT tablet 60 TAKE ONE TABLET BY MOUTH TWICE A DAY TAKE ONE TABLET BY MOUTH TWICE A DAY SOLD: 11/06/2019 [facility] 50 mg 07/01/2019 12:00:00 AM EDT tablet 60 TAKE ONE TABLET BY MOUTH TWICE A DAY TAKE ONE TABLET BY MOUTH TWICE A DAY SOLD: 12/01/2019 [facility] 750 mg 07/01/2019 12:00:00 AM EDT tablet 60 TAKE ONE TABLET BY MOUTH TWICE A DAY TAKE ONE TABLET BY MOUTH TWICE A DAY SOLD: 08/29/2019 [facility] 750 mg 07/01/2019 12:00:00 AM EDT tablet 60 TAKE ONE TABLET BY MOUTH TWICE A DAY TAKE ONE TABLET BY MOUTH TWICE A DAY SOLD: 10/04/2019 [facility] 50 mg 07/01/2019 12:00:00 AM EDT tablet 60 TAKE ONE TABLET BY MOUTH TWICE A DAY TAKE ONE TABLET BY MOUTH TWICE A DAY SOLD: 11/06/2019 [facility] 20 % 06/06/2019 12:00:00 AM EDT cream 85 APPLY TO CALLUS ON FEET DAILY APPLY TO CALLUS ON FEET DAILY SOLD: 08/29/2019 [facility] 20 % 06/06/2019 12:00:00 AM EDT cream 85 APPLY TO CALLUS ON FEET DAILY APPLY TO CALLUS ON FEET DAILY SOLD: 10/04/2019 [facility] 10 mg 05/24/2019 12:00:00 AM EDT tablet 30 TAKE ONE TABLET BY MOUTH EVERY DAY TAKE ONE TABLET BY MOUTH EVERY DAY SOLD: 10/04/2019 [facility] 5 mg 05/24/2019 12:00:00 AM EDT tablet 30 TAKE ONE TABLET BY MOUTH EVERY DAY TAKE ONE TABLET BY MOUTH EVERY DAY SOLD: 10/04/2019 [facility] 10 mg 05/24/2019 12:00:00 AM EDT tablet 30 TAKE ONE TABLET BY MOUTH EVERY DAY NEEDED TAKE ONE TABLET BY MOUTH EVERY DAY NEEDED SOLD: 08/29/2019 [facility] 5 mg 05/24/2019 12:00:00 AM EDT tablet 30 TAKE ONE TABLET BY MOUTH EVERY DAY TAKE ONE TABLET BY MOUTH EVERY DAY SOLD: 08/29/2019 [facility] montelukast 10 MG Oral Tablet MONTELUKAST SODIUM 05/24/2019 12:0 0:00 AM EDT tablet 30 TAKE ONE TABLET BY MOUTH EVERY D AY TAKE ONE TABLET BY MOUTH EVERY DAY SOLD: 11/06/2019 [facility] 10 mg 05/24/2019 12:00:00 AM EDT tablet 30 TAKE ONE TABLET BY MOUTH EVERY DAY NEEDED TAKE ONE TABLET BY MOUTH EVERY DAY NEEDED SOLD: 10/04/2019 [facility] 10 mg 05/24/2019 12:00:00 AM EDT tablet 30 TAKE ONE TABLET BY MOUTH EVERY DAY TAKE ONE TABLET BY MOUTH EVERY DAY SOLD: 08/29/2019 [facility] 10 mg 05/24/2019 12:00:00 AM EDT tablet 30 TAKE ONE TABLET BY MOUTH EVERY DAY TAKE ONE TABLET BY MOUTH EVERY DAY SOLD: 08/29/2019 [facility] 10 mg 05/24/2019 12:00:00 AM EDT tablet 30 TAKE ONE TABLET BY MOUTH EVERY DAY TAKE ONE TABLET BY MOUTH EVERY DAY SOLD: 11/06/2019 [facility] 10 mg 05/24/2019 12:00:00 AM EDT tablet 30 TAKE ONE TABLET BY MOUTH EVERY DAY NEEDED TAKE ONE TABLET BY MOUTH EVERY DAY NEEDED SOLD: 11/06/2019 [facility] montelukast 10 MG Oral Tablet MONTELUKAST SODIUM 05/24/2019 12:0 0:00 AM EDT tablet 30 TAKE ONE TABLET BY MOUTH EVERY D AY TAKE ONE TABLET BY MOUTH EVERY DAY SOLD: 10/04/2019 [facility] 5 mg 05/24/2019 12:00:00 AM EDT tablet 30 TAKE ONE TABLET BY MOUTH EVERY DAY TAKE ONE TABLET BY MOUTH EVERY DAY SOLD: 11/06/2019 [facility] 113-14 mcg/actuation 03/30/2019 12:00:00 AM EDT aerosol powdr breath activated 1 INHALE ONE PUFF BY MOUTH TWICE A DAY INHA LE ONE PUFF BY MOUTH TWICE A DAY SOLD: 08/29/2019 [facility] 113-14 mcg/actuation 03/30/2019 12:00:00 AM EDT aerosol powdr breath activated 1 INHALE ONE PUFF BY MOUTH TWICE A DAY INHA LE ONE PUFF BY MOUTH TWICE A DAY SOLD: 10/20/2019 [facility] 100 unit/mL 12/27/2018 12:00:00 AM EDT solution 10 USE DIRECTED IN INSULIN PUMP MAXIMUM DAILY DOSE = 25 UNITS USE DIRECTED IN INSULIN PUMP MAXIMUM DAILY DOSE = 25 UNITS SOLD: 12/25/2019 [facility] 0.5 mL 30 gauge x 1/2" 10/29/2018 12:00:00 AM EST syringe 100 INJECT FOUR TIMES A DAY UNDER THE SKIN INJECT FOUR TIMES A DAY UNDER THE SKIN SOLD: 08/29/2019 [facility] fluticasone (FLONASE) 50 MCG/ACT nasal spray 9561-7881-38 10/29/2018 12:00:00 AM EST 1 {spray} Nasal active 1 spray by Rodney al route daily [facility] Fluocinolone Acetonide 0.1 MG/ML Topical Solution fluocinolone (SYNALAR) 0.01 % external solution fluocinolone (SYNALAR) 0.01 % external solution 2018 12:00:00 AM EST active 5 drops each ear twice a day as needed [facility] Insurance Providers Payer name Policy type / Coverage type Policy ID Covered republican ID Covered republican's relationship to cunningham Policy [place] Plan Information [facility] COMMUNITY PLAN [facility] [id number] SP [id number] [facility] O [id number] S [id number] [facility] COMMUNITY PLAN [facility] [id number] SP [id number] ANSI-Medicaid [id number] ANSI-Medicaid [id number] ANSI-Medicaid [id number] ANSI-Medicaid [id number] ANSI-Medicaid [id number] ANSI-Medicaid [id number] ANSI-Medicaid [id number] ANSI-Medicaid [id number] Ghi FHP-(DO Not Use) Medigap Part B [id number] Self [id number] P[place] ([place] Workers Compensation [id number] Self [id number] [facility] Commercial [id number] Self [id number] [facility] Medigap Part B [id number] [place] [id number] [place] [id number] Self [id number] [facility] I [id number] Self [id number] ANSI-Medicaid [id number] ANSI-Medicaid [id number] [facility] [id number] Self [id number] [place] [id number] Self [id number] [facility] Commercial [id number] Self [id number] [facility] Medigap Part B [id number] Self [id number] ANSI-Medicaid [id number] ANSI-Medicaid [id number] ANSI-Medicaid [id number] ANSI-Medicaid [id number] Ghi FHP-(DO Not Use) Medigap Part B [id number] Self [id number] [employer] ([place] Workers Compensation [id number] Self [id number] [facility] Commercial [id number] Self [id number] ANSI-Medicaid [id number] ANSI-Medicaid [id number] [facility] OFFICE OF VICTIM SERVICES [id number] [facility] Commercial [id number] Self [id number] [place] [id number] Self [id number] [facility] FHP-(DO Not Use) Medigap Part B [id number] Self [id number] [employer] ([place] Workers Compensation [id number] Self [id number] [facility] Commercial [id number] Self [id number] ANSI-Medicaid [id number] ANSI-Medicaid [id number] [facility] Commercial [id number] Self [id number] [facility] Health Maintenance Organization (HMO) [id number] Self [id number] [place] Med[place] [id number] Self [id number] [facility] Health Maintenance Organization (HMO) [id number] Self [id number] [facility] [id number] SP [id number] [facility] Health Maintenance Organization (HMO) [id number] Self [id number] [place] [id number] Self [id number] Ghi FHP-(DO Not Use) Medigap Part B [id number] Self [id number] [employer] ([place]) Workers Compensation [id number] Self [id number] [facility] Commercial [id number] Self [id number] Ghi FHP-(DO Not Use) Medigap Part B [id number] Self [id number] [employer] ([place]) Workers Compensation [id number] Self [id number] [facility] Commercial [id number] Self [id number] Ghi FHP-(DO Not Use) Medigap Part B [id number] Self [id number] [employer] ([place]) Workers Compensation [id number] Self [id number] [facility] Commercial [id number] Self [id number] [place] [id number] Self [id number] [place] [id number] Self [id number] [place] [id number] Self [id number] [facility] Health Maintenance Organization (HMO) [id number] Self [id number] [facility] Hmo Commercial [id number] Self [id number] [facility] Hmo Commercial [id number] Self [id number] [place] [id number] Self [id number] [facility]mo Commercial [id number] Self [id number] [place] [id number] Self [id number] Ghi FHP-(DO Not Use) Medigap Part B [id number] Self [id number] [employer] ([place]) Workers Compensation [id number] Self [id number] [facility] Commercial [id number] Self [id number] [facility] Hmo Commercial [id number] Self [id number] [facility] [employer] Commercial [id number] Self [id number] Ghi FHP-(DO Not Use) Medigap Part B [id number] Self [id number] [employer] ([place]) Workers Compensation [id number] Self [id number] [facility] Commercial [id number] Self [id number] [facility] Hmo Commercial [id number] Self [id number] [facility] Hmo Commercial [id number] Self [id number] [facility]LY [facility] COMMUNITY PLAN MCDO [id number] SP [id number] [employer] [facility] Hmo Commercial [id number] Self [id number] UHC I [id number] Self [id number] MEDICAID [id number] SP [id number] [facility] Hmo Commercial [id number] Self [id number] MEDICAID M [id number] S [id number] [place] [id number] Self [id number] [facility]mo Commercial [id number] Self [id number] [facility] Commercial [id number] Self [id number] [facility] [employer] Commercial [id number] Self [id number] [facility] [employer] Commercial [id number] Self [id number] [employer] [facility] Hmo Commercial [id number] Self [id number] [facility] Commercial [id number] Self [id number] [facility] Hmo Commercial [id number] Self [id number] Ghi FHP-(DO Not Use) Medigap Part B Self Pma Ins ([place]) Workers Compensation Self [facility] Medigap Part B [place] Part B Self [facility] Commercial Self UNHC COMMUNITY PLAN MCDHMO [id number] SP [id number] Rank By Search Commercial Self EXCELLUS I [id number] Self [id number] [facility] P UNAVAILABLE S UNAVAILABLE UNHC AMERICHOICE XIX -O [id number] 18 [id number] BLUE CROSS BLUE SHIELD-O/P [id number] 18 [id number] BLUE CROSS [employer] PLAN [id number] SP [id number] SELF PAY P 000 S 000 BLUE CROSS BLUE SHIELD-O/P [id number] 18 [id number] SELF PAY UNAVAILABLE UNAVAILA BLE HMO BLUE OPTION W [id number] S [id number] HMO BLUE [id number] SP [id number] HMO BLUE OPTION W [id number] S V [id number] Problems, Conditions, and Diagnoses Code Display Name Description Problem Type Effective Dates Data Source(s) Z12.31 [id number] Encounter for screen ing mammogram for malignant neoplasm of breast Problem 04/23/2020 12:00:00 AM EDT eCW1 ([facility]) [id number] Type 2 diabetes mellitus Type 2 diabetes mellitus Prob osvaldo 11/17/2019 12:00:00 AM EST MED[facility] ([facility] ) [id number] Essential hypertension Essential hypertension Problem 11/17/2019 12:00:00 AM EST [facility] ([facility] ) [id number] Type 2 diabetes mellitus Type 2 diabetes mellitus Prob osvaldo 08/30/2019 12:00:00 AM EST [facility] ([facility] [id number] Pronation Pronation Problem 08/30/2019 12:00:00 AM ES T [facility] ([facility] Surgeries/Procedures Procedure Description Date Indications Data Source(s) Amb Glucose Monitoring Interpretation And Report 10/11 12:00:00 AM EST [facility] ([facility] ) Injection, Single Or Multiple trigger points one or two musc les 09/20/2020 12:00:00 AM EST [facility] ([facility] ) Inj, Anesth Agent, Trigeminal 09/20/2020 12:00:[address] [facility] ([facility] ) INJECTION ANES OTHER PERIPHERAL NERVE/BRANCH 0 12:00:00 AM EST [facility] ([facility] ) MRI SPINAL CANAL LUMBAR W/O CONTRAST MATERIAL 10/28/20 20 12:00:00 AM EDT [facility] ([facility] ) MRI SPINAL CANAL LUMBAR W/O CONTRAST MATERIAL 08/01/20 20 12:00:00 AM EDT [facility] ([facility] ) RADEX FOOT COMPLETE MINIMUM 3 VIEWS 07/30/2020 12:00:0 0 AM EDT [facility] ([facility] INJECTION SINGLE/COUNTY LIBRARY DIRECTOR TRIGGER POINT 3/> MUSCLES 020 12:00:00 AM EDT [facility] ([facility] ) Inj, Anesth Agent, Trigeminal 07/18/2020 12:00:00 AM E DT [facility] ([facility] ) INJECTION ANES OTHER PERIPHERAL NERVE/BRANCH 0 12:00:00 AM EDT [facility] ([facility] ) INJECTION SINGLE/COUNTY LIBRARY DIRECTOR TRIGGER POINT 3/> MUSCLES 020 12:00:00 AM EDT [facility] ([facility] ) Inj, Anesth Agent, Trigeminal 07/17/2020 12:00:00 AM E DT [facility] ([facility] ) INJECTION ANES OTHER PERIPHERAL NERVE/BRANCH 0 12:00:00 AM EDT [facility] ([facility] ) Amb Glucose Monitoring Interpretation And Report 07/11 12:00:00 AM EDT [facility] ([facility] ) Injection, Single Or Multiple trigger points one or two musc les 06/15/2020 12:00:00 AM EDT [facility] ([facility] ) Inj, Anesth Agent, Trigeminal 06/15/2020 12:00:00 AM E DT [facility] ([facility], ) INJECTION ANES OTHER PERIPHERAL NERVE/BRANCH 0 12:00:00 AM EDT [facility] ([facility], ) Arthroscopy Shoulder W/Lysis & Resection Of Adhesions 05/09/2020 12:00:00 AM EDT [facility] ([facility] ) Arthroscopy Shoulder W/Lysis & Resection Of Adhesions 05/09/2020 12:00:00 AM EDT [facility] ([facility] ) Diabetic Foot Exam 04/10/2020 12:00:00 AM EDT [facility] ([facility] ) Injection, Single Or Multiple trigger points one or two musc les 04/10/2020 12:00:00 AM EDT [facility] ([facility]) Inj, Anesth Agent, Trigeminal 04/10/2020 12:00:00 AM E DT [facility] ([facility], ) INJECTION ANES OTHER PERIPHERAL NERVE/BRANCH 0 12:00:00 AM EDT [facility] ([facility], ) Amb Glucose Monitoring Interpretation And Report 04/10 12:00:00 AM EDT [facility] ([facility] ) Arthroscopy Shoulder W/Lysis & Resection Of Adhesions 03/08/2020 12:00:00 AM EDT [facility] ([facility] ) Injection, Single Or Multiple trigger points one or two musc les 01/31/2020 12:00:00 AM EDT [facility] ([facility]) Inj, Anesth Agent, Trigeminal 01/31/2020 12:00:00 AM E DT [facility] ([facility], ) INJECTION ANES OTHER PERIPHERAL NERVE/BRANCH 0 12:00:00 AM EDT [facility] ([facility], ) Injection, Single Or Multiple trigger points one or two musc les 12/29/2019 12:00:00 AM EDT [facility] ([facility] [facility], [facility]) Inj, Anesth Agent, Trigeminal 12/29/2019 12:00:00 AM E DT MEDENT ([facility]) INJECTION ANES OTHER PERIPHERAL NERVE/BRANCH 0 12:00:00 AM EDT MEDENT ([facility], ) Injection, Single Or Multiple trigger points one or two musc les 11/29/2019 12:00:00 AM EST [facility] ([facility]) Inj, Anesth Agent, Trigeminal 11/29/2019 12:00:[address] [facility] ([facility]) INJECTION ANES OTHER PERIPHERAL NERVE/BRANCH 0 12:00:00 AM EST MED[facility] ([facility]) Amb Glucose Monitoring Interpretation And Report 11/01 12:00:00 AM EST [facility] ([facility] ) Injection, Single Or Multiple trigger points one or two musc les 10/25/2019 12:00:00 AM EST [facility] ([facility]) Inj, Anesth Agent, Trigeminal 10/25/2019 12:00:[address] [facility] ([facility], ) INJECTION ANES OTHER PERIPHERAL NERVE/BRANCH 0 12:00:00 AM EST MEDENT ([facility], ) VENIPUNCT, ROUTINE* 10/10/2019 12:00:00 AM EST eCW1 ([facility]) Injection, Single Or Multiple trigger points one or two musc les 09/19/2019 12:00:00 AM EST [facility] ([facility]) Inj, Anesth Agent, Trigeminal 09/19/2019 12:00:[address] [facility] ([facility] ) INJECTION ANES OTHER PERIPHERAL NERVE/BRANCH 9 12:00:00 AM EST MEDENT ([facility] ) RADEX SHOULDER COMPLETE MINIMUM 2 VIEWS 09/16/2019 12: 00:00 AM EST MED[facility] ([facility] ) Magnetic Resonance Angiogtaphy Head W/O Contrast Material(S) 08/20/2019 12:00:00 AM EST [facility] ([facility]) Magnetic Resonance Angiogtaphy Head W/O Contrast Material(S) 08/20/2019 12:00:00 AM EST [facility] ([facility]) MRI BRAIN BRAIN STEM W/O CONTRAST MATERIAL 08/20/2019 12:00:00 AM EST MED[facility] ([facility] ) MRI BRAIN BRAIN STEM W/O CONTRAST MATERIAL 08/20/2019 12:00:00 AM EST [facility] ([facility] ) MRI SPINAL CANAL CERVICAL W/O CONTRAST MATRL 9 12:00:00 AM EST MED[facility] ([facility] ) MRI SPINAL CANAL CERVICAL W/O CONTRAST MATRL 9 12:00:00 AM EST [facility] ([facility], ) Results ID Date Data Source [id number] 10/11/2020 09:03:00 AM EST [facility] ([facility] ) Name Value Range Interpretation Code Description Data Lisa rce(s) Supporting Document(s) Hemoglobin A1c/Hemoglobin.total in Blood 6.0 MED[facility] ([facility] ) Glucose [Mass/volume] in Serum or Plasma 101 MEDENT ([facility]) ID Date Data Source [id number] 07/11/2020 01:30:00 PM EDT MED[facility] ([facility]) Name Value Range Interpretation Code Description Data Lisa rce(s) Supporting Document(s) Creatinine [Mass/volume] in Urine 49.2 mg/dL MED[facility] ([facility]) Microalbumin [Mass/volume] in Urine Laboratory test result MEDENT ([facility]) Microalbumin/Creatinine [Mass Ratio] in Urine 10.1 MCG/MG 0.0-30.0 MED[facility] ([facility]) THE [employer] STATES THAT MICROALBUMINURIA IS PRESENT IF THE MICROALBUMIN/CREATININE RATIO EXCEEDS 30 MCG/MG. THE THRESHOLD FOR CLINICAL ALBUMINURIA IS REACHED AT 300 MCG/MG. THE CLASSIFICATION OF A PATIENT SHOULD BE BASED UPON AT LEAST 2 OF 3 ABNORMAL RESULTS ON SPECIMENS COLLECTED WITHIN A 3 TO 6 MONTH TIME FRAME. ID Date Data Source [id number] 07/11/2020 01:09:00 PM EDT MED[facility] ([facility]) Name Value Range Interpretation Code Description Data Lisa rce(s) Supporting Document(s) Hemoglobin A1c/Hemoglobin.total in Blood 6.3 MED[facility] ([facility]) ID Date Data Source [id number] 04/16/2020 03:36:00 PM EDT MED[facility] ([facility]) Name Value Range Interpretation Code Description Data Lisa rce(s) Supporting Document(s) Laboratory test finding (navigational concept) Laboratory test result MED[facility] ([facility]) ID Date Data Source [id number] 04/10/2020 02:06:00 PM EDT [facility] ([facility] Name Value Range Interpretation Code Description Data Lisa rce(s) Supporting Document(s) Blood Urea Nitrogen 16 mg/dL 7-18 [facility] ([facility] Glucose, Fasting 184 mg/dL 70-100 Above high normal M EDENT ([facility] Sodium Level 141 meq/L 136-145 [facility] ([facility] Glomerular Filtration Rate Laboratory test result [facility] ([facility] <content>Units are mL/min/1.73 m2</content>
<content></content>
<content>Chronic Kidney Disease Staging per NKF:</content>
<content></content>
<content>Stage I & II GFR >=60 Normal to Mildly Decreased</content>
<content>Stage III GFR 30-59 Moderately Decreased</content>
<content>Stage IV GFR 15-29 Severely Decreased</content>
<content>Stage V GFR <15 Very Little GFR Left</content>
<content>ESRD GFR <15 on MENAGERIE CARETAKER</content>
<content></content> Creatinine For GFR 0.87 mg/dL 0.55-1.30 MED[facility] ([facility] Chloride Level 108 meq/L 98-107 Above high normal MED ENT ([facility] Potassium Serum 4.4 meq/L 3.5-5.1 [facility] ([facility] Carbon Dioxide Level 27 meq/L 21-32 [facility] ([facility] Anion Gap 6 meq/L 8-16 MED[facility] ([facility] Calcium Level 9.2 mg/dL 8.5-10.1 [facility] ([facility] Phosphorus Level 3.4 mg/dL 2.5-4.9 [facility] ([facility] ID Date Data Source [id number] 04/10/2020 02:06:00 PM EDT [facility] ([facility] Name Value Range Interpretation Code Description Data Lisa rce(s) Supporting Document(s) Alkaline Phosphatase 57 U/L 45-117 [facility] ([facility] Ast/Sgot 11 U/L 7-37 [facility] ([facility] Alt/SGPT 17 U/L 12-78 [facility] ([facility] Bilirubin,Direct 0.1 mg/dL 0.0-0.2 [facility] ([facility] Total Protein 7.1 GM/DL 6.4-8.2 [facility] ([facility] Bilirubin,Total 0.4 mg/dL 0.2-1.0 [facility] ([facility] Albumin/Globulin Ratio 1.0 1.2-2.2 [facility] ([facility] Albumin 3.6 GM/DL 3.2-5.2 [facility] ([facility] ID Date Data Source [id number] 04/10/2020 02:06:00 PM EDT [facility] ([facility] Name Value Range Interpretation Code Description Data Lisa rce(s) Supporting Document(s) White Blood Count 13.0 10 4.0-10.0 Above high normal [facility] ([facility] Red Blood Count 3.86 10 4.00-5.40 [facility] ([facility] Hemoglobin 13.0 g/dL 12.0-15.5 [facility] ([facility] Hematocrit 39.1 % 36.0-47.0 [facility] ([facility] Mean Corpuscular Hemoglobin 33.7 pg 27.0-33.0 Above high normal [facility] ([facility] Mean Corpuscular Volume 101.3 fl 80.0-96.0 Above high normal [facility] ([facility] Mean Corpuscular HGB Conc 33.2 g/dL 32.0-36.5 [facility] ([facility] Platelet Count, Automated 239 10 150-450 [facility] ([facility] Red Cell Distribution Width 13.2 % 11.5-14.5 [facility] ([facility] Nucleated Red Blood Cell % 0.0 % 0-0 MED ENT ([facility] ID Date Data Source [id number] 04/10/2020 01:22:00 PM EDT [facility] ([facility]) Name Value Range Interpretation Code Description Data Lisa rce(s) Supporting Document(s) Hemoglobin A1c/Hemoglobin.total in Blood 6.5 [facility] ([facility]) ID Date Data Source [id number] 03/05/2020 10:20:00 AM EDT [facility] ([facility]) Name Value Range Interpretation Code Description Data Lisa rce(s) Supporting Document(s) Laboratory test finding (navigational concept) Laboratory test result [facility] ([facility]) Testing was performed using the greyson(R) SARS-CoV-2 test. This test was developed and its performance characteristics determined by [facility]. This test has not been FDA cleared or approved. This test has been authorized by FDA under an Emergency Use Authorization (EUA). This test is only authorized for the duration of time the declaration that circumstances exist justifying the authorization of the emergency use of in vitro diagnostic tests for detection of SARS-CoV-2 virus and/or diagnosis of COVID-19 infection under section 564(b)(1) of the Act, 21 U.S.C. 360bbb-3(b)(1), unless the authorization is terminated or revoked sooner. When diagnostic testing is negative, the possibility of a false negative result should be considered in the context of a patient's recent exposures and the presence of clinical signs and symptoms consistent with COVID-19. An individual without symptoms of COVID-19 and who is not shedding SARS-CoV-2 virus would expect to have a negative (not detected) result in this assay. Performed at: - [facility] [address] [id number] Exchange Mechanic: Rita Peterson MD, Phone: [phone] Not Detected ID Date Data Source [id number] 03/05/2020 10:20:00 AM EDT [facility] Name Value Range Interpretation Code Description Data Lisa rce(s) Supporting Document(s) SARS CORONAVIRUS 2 RNA [facility] This lab was ordered by [facility] and reported by [facility]. ID Date Data Source [id number] 03/01/2020 03:28:00 PM EDT MED[facility] ([facility]) Name Value Range Interpretation Code Description Data Lisa rce(s) Supporting Document(s) Creatinine For GFR 0.82 mg/dL 0.55-1.30 MED[facility] ([facility]) Blood Urea Nitrogen 11 mg/dL 7-18 [facility] Glucose, Fasting 107 mg/dL 70-100 [facility] ([facility]) Sodium Level 138 meq/L 136-145 [facility] ([facility]) Glomerular Filtration Rate Laboratory test result MED[facility] ([facility]) <content>Units are mL/min/1.73 m2</content>
<content></content>
<content>Chronic Kidney Disease Staging per NKF:</content>
<content></content>
<content>Stage I & II GFR >=60 Normal to Mildly Decreased</content>
<content>Stage III GFR 30-59 Moderately Decreased</content>
<content>Stage IV GFR 15-29 Severely Decreased</content>
<content>Stage V GFR <15 Very Little GFR Left</content>
<content>ESRD GFR <15 on MENAGERIE CARETAKER</content>
<content></content> Potassium Serum 4.2 meq/L 3.5-5.1 [facility] ([facility] ) Chloride Level 105 meq/L 98-107 [facility] ([facility]) Anion Gap 6 meq/L 8-16 [facility] ([facility]) Carbon Dioxide Level 27 meq/L 21-32 [facility] ([facility]) Calcium Level 8.7 mg/dL 8.5-10.1 [facility] ([facility]) ID Date Data Source [id number] 03/01/2020 03:27:00 PM EDT MED[facility] ([facility]) Name Value Range Interpretation Code Description Data Lisa rce(s) Supporting Document(s) Hemoglobin A1c 6.5 % [facility] ([facility]) REFERENCE RANGES: 4.5-5.6% NORMAL 5.7-6.4% SUGGESTS IMPAIRED GLUCOSE META BOLISM >= 6.5% ABNORMAL Estimated Average Glucose 140 mg/dL 60-110 [facility] ([facility]) ID Date Data Source [id number] 01/12/2020 10:35:00 AM EDT [facility] Name Value Range Interpretation Code Description Data Lisa rce(s) Supporting Document(s) SARS CORONAVIRUS 2 RNA [facility] This lab was ordered by [facility] and reported by [facility]. ID Date Data Source [id number] 10/10/2019 12:00:00 AM EST eCW1 ([facility]) Name Value Range Interpretation Code Description Data Lisa rce(s) Supporting Document(s) Microalbumin/Creatinine [Ratio] in Urine 22.7 0.0-30.0 DEBI/CREAT RATIO eCW1 ([facility]) Microalbumin/Creatinine [Mass Ratio] in Urine 22.0 CREATININE, URINE eCW1 ([facility]) Albumin/Creatinine [Mass Ratio] in Urine < 5.0 MALB URINE SIEMENS eCW1 ([facility]) ID Date Data Source Comprehensive Metabolic Profile (CMP) 10/10/2019 12:00:00 AM EST eCW1 ([facility]) Name Value Range Interpretation Code Description Data Lisa rce(s) Supporting Document(s) 287 70-100 GLUCOSE, FASTING eCW1 ([facility]) 1.01 0.55-1.30 CREATININE FOR GFR eCW1 ([facility]) > 60.0 >58 GLOMERULAR FILTRATION RATE eCW 1 ([facility]) 12 7-18 BLOOD UREA NITROGEN eCW1 ([facility]) 136 136-145 SODIUM LEVEL eCW1 ([facility]) 7 7-37 AST/SGOT eCW1 ([facility]) 97 98-107 CHLORIDE LEVEL eCW1 ([facility]) 4.6 3.5-5.1 POTASSIUM SERUM eCW1 ([facility]) 30 21-32 CARBON DIOXIDE LEVEL eCW1 ([facility]) 9.5 8.5-10.1 CALCIUM LEVEL eCW1 ([facility]) 16 12-78 ALT/SGPT eCW1 ([facility]) 7.6 6.4-8.2 TOTAL PROTEIN eCW1 ([facility]) 0.7 0.2-1.0 BILIRUBIN,TOTAL eCW1 ([facility]) 55 45-117 ALKALINE PHOSPHATASE eCW1 ([facility]) 0.95 1.00-1.93 ALBUMIN/GLOBULIN RATIO eCW1 ([facility]) 3.7 3.2-5.2 ALBUMIN eCW1 ([facility]) ID Date Data Source CBC with Differential 10/10/2019 12:00:00 AM EST eCW1 ([facility]) Name Value Range Interpretation Code Description Data Lisa rce(s) Supporting Document(s) 4.30 4.00-5.40 RED BLOOD COUNT eCW1 ([facility]) 16.8 4.0-10.0 WHITE BLOOD COUNT eCW1 ([facility]) 101.4 80.0-96.0 MEAN CORPUSCULAR VOLUME e CW1 ([facility]) 14.4 12.0-15.5 HEMOGLOBIN eCW1 ([facility]) 33.5 27.0-33.0 MEAN CORPUSCULAR HEMOGLOB IN eCW1 ([facility]) 43.6 36.0-47.0 HEMATOCRIT eCW1 ([facility]) 33.0 32.0-36.5 MEAN CORPUSCULAR HGB CONC eCW1 ([facility]) 86.4 36.0-66.0 NEUTROPHILS % eCW1 ([facility]) 338 150-450 PLATELET COUNT, AUTOMATED eCW1 ([facility]) 13.2 11.5-14.5 RED CELL DISTRIBUTION WID TH eCW1 ([facility]) 0.0 0.0-3.0 EOS % eCW1 ([facility]) 0.4 0.0-1.0 BASO % eCW1 ([facility]) 10.6 24.0-44.0 LYMPH % eCW1 ([facility]) 2.3 0.0-5.0 MONO % eCW1 ([facility]) 0.4 0.0-0.8 MONO # eCW1 ([facility]) 0.0 0.0-0.5 EOS # eCW1 ([facility]) 1.8 1.5-5.0 LYMPH # eCW1 ([facility]) 14.5 1.5-8.5 NEUTROPHILS # eCW1 ([facility]) 0.1 0.0-0.2 BASO # eCW1 ([facility]) Procedure Social History Code Duration Value Status Description Data Source(s ) Smoking 09/14/2020 12:00:00 AM EST Current Smoker completed Curre nt Smoker eCW1 ([facility]) Smoking 09/14/2020 12:00:00 AM EST Current Smoker completed Curre nt Smoker eCW1 ([facility]) Smoking 07/31/2020 12:00:00 AM EDT Current Smoker completed Curre nt Smoker eCW1 ([facility]) Smoking 07/31/2020 12:00:00 AM EDT Current Smoker completed Curre nt Smoker eCW1 ([facility]) Smoking 07/31/2020 12:00:00 AM EDT Current Smoker completed Curre nt Smoker eCW1 ([facility]) Smoking 04/23/2020 12:00:00 AM EDT Current Smoker completed Curre nt Smoker eCW1 ([facility]) Vital Signs ID Date Data Source [id number] Name Value Range Interpretation Code Description Data Source(s) Oxygen saturation in Arterial blood by Pulse oximetry 99 % 99 % MEDENT ([facility]) Body mass index (BMI) [Ratio] 23.4 kg/m2 23.4 k g/m2 MEDENT ([facility]) Body weight 142.00 [lb_av] 142.00 [lb_av] MEDEN T ([facility]) Body height 65.25 [in_i] 65.25 [in_i] MEDENT ([facility] ) 5'5.25" Body temperature 97.0 [degF] 97.0 [degF] MEDENT ([facility]) Heart rate 87 /min 87 /min MEDENT ([facility]) Diastolic blood pressure 70 mm[Hg] 70 mm[Hg] MEDENT ([facility]) Systolic blood pressure 118 mm[Hg] 118 mm[Hg] M EDENT ([facility]) Diastolic blood pressure 75 mm[Hg] 75 mm[Hg] eCW1 ([facility]) Systolic blood pressure 130 mm[Hg] 130 mm[Hg] e CW1 ([facility]) Body mass index (BMI) [Ratio] 22.11 kg/m2 22.11 kg/m2 [facility] ([facility]) Body height 66 [in_i] 66 [in_i] eCW1 ([facility]) Body weight 62.14 kg 62.14 kg W1 ([facility]) Body weight 137 [lb_av] 137 [lb_av] eCW1 ([facility]) Body temperature 97.1 [degF] 97.1 [degF] MEDENT ([facility]) Body mass index (BMI) [Ratio] 22.6 kg/m2 22.6 k g/m2 MEDENT ([facility]) Body weight 137.00 [lb_av] 137.00 [lb_av] MEDEN T ([facility]) Body height 65.25 [in_i] 65.25 [in_i] MEDENT ([facility] ) 5'5.25" Body temperature 96.6 [degF] 96.6 [degF] MEDENT ([facility] ) Heart rate 84 /min 84 /min MED[facility] ([facility] ) Diastolic blood pressure 80 mm[Hg] 80 mm[Hg] MED[facility] ([facility] ) Systolic blood pressure 126 mm[Hg] 126 mm[Hg] M EDENT ([facility] ) Diastolic blood pressure 62 mm[Hg] 62 mm[Hg] eCW1 ([facility]) Systolic blood pressure 108 mm[Hg] 108 mm[Hg] e CW1 ([facility]) Body temperature 98.4 [degF] 98.4 [degF] eCW1 ( [facility]) Respiratory rate 17 /min 17 /min eCW1 ([facility]) Heart rate 92 /min 92 /min eCW1 ([facility]) Body mass index (BMI) [Ratio] 22.07 kg/m2 22.07 kg/m2 eCW1 ([facility]) Body height [in_i] eCW1 ([facility]) Body weight 137.8 [lb_av] 137.8 [lb_av] eCW1 ([facility]) Oxygen saturation in Arterial blood by Pulse oximetry 99 % 99 % MEDENT ([facility] ) Body mass index (BMI) [Ratio] 22.8 kg/m2 22.8 k g/m2 MED[facility] ([facility] ) Body weight 138.31 [lb_av] 138.31 [lb_av] MEDEN T ([facility] ) Body height 65.25 [in_i] 65.25 [in_i] MEDENT ([facility] ) 5'5.25" Heart rate 89 /min 89 /min MED[facility] ([facility] ) Diastolic blood pressure 70 mm[Hg] 70 mm[Hg] [facility] ([facility] ) Systolic blood pressure 124 mm[Hg] 124 mm[Hg] M EDENT ([facility] ) Body temperature 98.2 [degF] 98.2 [degF] MED[facility] ([facility] ) Oxygen saturation in Arterial blood by [facility]ulse [facility]ximetry 97 % 97 % [facility] Body mass index (BMI) [Ratio] 22.8 kg/m2 22.8 k g/m2 [facility] ([facility]) Body weight 138.38 [lb_av] 138.38 [lb_av] MEDEN T ([facility]) Body height 65.25 [in_i] 65.25 [in_i] MEDENT ([facility]) 5'5.25" Heart rate 82 /min 82 /min [facility] ([facility]) Diastolic blood pressure 60 mm[Hg] 60 mm[Hg] [facility] ([facility]) Systolic blood pressure 124 mm[Hg] 124 mm[Hg] M EDENT ([facility]) Systolic blood pressure 118 mm[Hg] 118 mm[Hg] e CW1 ([facility]) Body temperature [degF] eCW1 ([facility]) Respiratory rate 16 /min 16 /min eCW1 ([facility]) Heart rate 84 /min 84 /min eCW1 ([facility]) Body mass index (BMI) [Ratio] 22.26 kg/m2 22.26 kg/m2 eCW1 ([facility]) Body height [in_us] eCW1 ([facility]) Body weight Measured 139 [lb_av] 139 [lb_av] eC W1 ([facility]) Diastolic blood pressure 74 mm[Hg] 74 mm[Hg] eCW1 ([facility]) Patient Treatment Plan of Care Planned Activity Planned Date Details Description Data Source (s) montelukast 10 MG Oral Tablet [Singulair] 04/23/2020 12:00:00 AM ED T eCW1 ([facility]) 120 ACTUAT Budesonide 0.08 MG/ACTUAT / f ormoterol fumarate 0.0045 MG/ACTUAT Metered Dose Inhaler [Symbicort] 10/03/2019 12:00:00 AM EST eCW1 ([facility]) Fluocinolone Acetonide 0.1 MG/ML Topical Solution 10/29/2018 12: 00:[address] [facility] fluticasone (FLONASE) 50 MCG/ACT nasal spray 10/29/2018 12:00:[address] [facility]
--- NOTE | 2020-10-17 19:29 | REP ---
INDICATION: R/O PNEUMOTHORAX COMPARISON: 01/22/2019. TECHNIQUE: PA/Lateral FINDINGS: Lungs: Clear, no infiltrate. There is no pneumothorax. Heart: Normal in size. Mediastinum: Mediastinal silhouette unremarkable. Pleural angles: Unremarkable.. Bones and soft tissues: Unremarkable. IMPRESSION: No acute pulmonary disease. There is no pneumothorax. <Electronically signed by Nasir Birmingham > 10/17/20 [id number]
--- OUTSIDE RECORDS SUMMARY | 2020-10-17 19:52 | CCD ---
Author Author [facility] Organization [facility] Address Unknown Phone Unavailable Support Name Relationship Address Phone STACIE NEVES Next Of Kin [address] [place] [address] ADVASTHMA Next Of Kin [address] [place] [address] [facility] Next Of Kin [id number] [address] UE Next Of Kin Unknown Unavailable ENRIKE [place] [address] LOWES Next Of Kin [address] [facility] [address] [place] [address] SUNOCO Next Of Kin [address] [place] [address] GUDARLIN BURGOS Next Of Kin Unknown NICE N EASY Next Of Kin [facility] [address] [place] [address] PHOEBE VELEZ Next Of Kin [address] [place] [address] [place] [address] [facility] Next Of Kin [address] [place] [address] ALBARO GARRISON Next Of Kin [address] [place] [address] SIMONE KELLY Next Of Kin [address] [place] [address] [facility] Next Of Kin [place] [address] JRC* [place] [address] CHANDLER LEE Next Of Kin [address] [place] [address] MUKESH MARTINI [place] [address] MADISON MARTINI Next Of Kin [address] [facility], [place] [id number] DANNI SHANERRA ECON [address] [place] [address] Unavailable Phoebe Velez ECON [address] [place] [address] [phone] Care Team Providers Care Clinical Educator Name Role Phone Kiara, Carolyn ACEVES Unavailable [...] Nicolle ACEVES Unavailable Unavailable COOK, B TIMO JR. SYSTEMS ADMINISTRATOR Unavailable Unavailable COOK, B TIMO JR. SYSTEMS ADMINISTRATOR Unavailable Unavailable COOK, B TIMO JR. SYSTEMS ADMINISTRATOR Unavailable Unavailable COOK, B TIMO JR. SYSTEMS ADMINISTRATOR Unavailable Unavailable COOK, B TIMO JR. SYSTEMS ADMINISTRATOR Unavailable Unavailable COOK, B TIMO JR. SYSTEMS ADMINISTRATOR Unavailable Unavailable COOK, B TIMO JR. SYSTEMS ADMINISTRATOR Unavailable Unavailable COOK, B TIMO JR. SYSTEMS ADMINISTRATOR Unavailable Unavailable COOK, B TIMO JR. SYSTEMS ADMINISTRATOR Unavailable Unavailable COOK, B TIMO JR. SYSTEMS ADMINISTRATOR Unavailable Unavailable COOK, B TIMO JR. SYSTEMS ADMINISTRATOR Unavailable Unavailable COOK, B TIMO JR. SYSTEMS ADMINISTRATOR Unavailable Unavailable COOK, B TIMO JR. SYSTEMS ADMINISTRATOR Unavailable Unavailable COOK, B TIMO JR. SYSTEMS ADMINISTRATOR Unavailable Unavailable COOK, B TIMO JR. SYSTEMS ADMINISTRATOR Unavailable Unavailable COOK, B TIMO JR. SYSTEMS ADMINISTRATOR Unavailable Unavailable COOK, B TIMO JR. SYSTEMS ADMINISTRATOR Unavailable Unavailable COOK, B TIMO JR. SYSTEMS ADMINISTRATOR Unavailable Unavailable COOK, B TIMO JR. SYSTEMS ADMINISTRATOR Unavailable Unavailable COOK, B TIMO JR. SYSTEMS ADMINISTRATOR Unavailable Unavailable COOK, B TIMO JR. SYSTEMS ADMINISTRATOR Unavailable Unavailable COOK, B TIMO JR. SYSTEMS ADMINISTRATOR Unavailable Unavailable COOK, B TIMO JR. SYSTEMS ADMINISTRATOR Unavailable Unavailable COOK, B TIMO JR. SYSTEMS ADMINISTRATOR Unavailable Unavailable COOK, B TIMO JR. SYSTEMS ADMINISTRATOR Unavailable Unavailable COOK, B TIMO JR. SYSTEMS ADMINISTRATOR Unavailable Unavailable COOK, B TIMO JR. SYSTEMS ADMINISTRATOR Unavailable Unavailable COOK, B TIMO JR. SYSTEMS ADMINISTRATOR Unavailable Unavailable COOK, B TIMO JR. SYSTEMS ADMINISTRATOR Unavailable Unavailable COOK, B TIMO JR. SYSTEMS ADMINISTRATOR Unavailable Unavailable COOK, B TIMO JR. SYSTEMS ADMINISTRATOR Unavailable Unavailable COOK, B TIMO JR. SYSTEMS ADMINISTRATOR Unavailable Unavailable COOK, B TIMO JR. SYSTEMS ADMINISTRATOR Unavailable Unavailable COOK, B TIMO JR. SYSTEMS ADMINISTRATOR Unavailable Unavailable COOK, B TIMO JR. SYSTEMS ADMINISTRATOR Unavailable Unavailable COOK, B TIMO JR. SYSTEMS ADMINISTRATOR Unavailable Unavailable COOK, B TIMO JR. SYSTEMS ADMINISTRATOR Unavailable Unavailable COOK, B TIMO JR. SYSTEMS ADMINISTRATOR Unavailable Unavailable COOK, B TIMO JR. SYSTEMS ADMINISTRATOR Unavailable Unavailable COOK, B TIMO JR. SYSTEMS ADMINISTRATOR Unavailable Unavailable COOK, B TIMO JR. SYSTEMS ADMINISTRATOR Unavailable Unavailable COOK, B TIMO JR. SYSTEMS ADMINISTRATOR Unavailable Unavailable COOK, B TIMO JR. SYSTEMS ADMINISTRATOR Unavailable Unavailable COOK, B TIMO JR. SYSTEMS ADMINISTRATOR Unavailable Unavailable COOK, B TIMO JR. SYSTEMS ADMINISTRATOR Unavailable Unavailable COOK, B TIMO JR. SYSTEMS ADMINISTRATOR Unavailable Unavailable COOK, B TIMO JR. SYSTEMS ADMINISTRATOR Unavailable Unavailable COOK, B TIMO JR. SYSTEMS ADMINISTRATOR Unavailable Unavailable COOK, B TIMO JR. SYSTEMS ADMINISTRATOR Unavailable Unavailable COOK, B TIMO JR. SYSTEMS ADMINISTRATOR Unavailable Unavailable COOK, B TIMO JR. SYSTEMS ADMINISTRATOR Unavailable Unavailable COOK, B TIMO JR. SYSTEMS ADMINISTRATOR Unavailable Unavailable COOK, B TIMO JR. SYSTEMS ADMINISTRATOR Unavailable Unavailable COOK, B TIMO JR. SYSTEMS ADMINISTRATOR Unavailable Unavailable COOK, B TIMO JR. SYSTEMS ADMINISTRATOR Unavailable Unavailable COOK, B TIMO JR. SYSTEMS ADMINISTRATOR Unavailable Unavailable COOK, B TIMO JR. SYSTEMS ADMINISTRATOR Unavailable Unavailable COOK, B TIMO JR. SYSTEMS ADMINISTRATOR Unavailable Unavailable COOK, B TIMO JR. SYSTEMS ADMINISTRATOR Unavailable Unavailable COOK, B TIMO JR. SYSTEMS ADMINISTRATOR Unavailable Unavailable COOK, B TIMO JR. SYSTEMS ADMINISTRATOR Unavailable Unavailable COOK, B TIMO JR. SYSTEMS ADMINISTRATOR Unavailable Unavailable COOK B TIMO JR. SYSTEMS ADMINISTRATOR Unavailable Unavailable Vaneenenaam, Elvie Pradhan MD Unavailable Unavailable Vaneenenaam, Elvie Pradhan MD Unavailable Unavailable Vaneenenaam, Elvie Pradhan MD Unavailable Unavailable Vaneenenaam, Elvie Pradhan MD Unavailable Unavailable Vaneenenaam, Elvie Pradhan MD Unavailable Unavailable Vaneenenaam, Elvie Pradhan MD Unavailable Unavailable Vaneenenaam, Elvie rPadhan MD Unavailable Unavailable Vaneenenaam, Elvie Pradhan MD [...] is protected by Article 27-F of the [facility] Public Health law. If you continue you may have access to information: Regarding HIV / AIDS; Provided by facilities licensed or operated by the [facility] Office of Mental Health; or Provided by the [facility] Office for People With Developmental Disabilities. If such information is present, then the following [facility] mandated warning applies: This information has been [...] law may result in a fine or detention sentence or both. A general authorization for the release of medical or other information is NOT sufficient authorization for further disc losure. Allergies and Adverse Reactions Type Description Substance Reaction Status Data Source(s ) Drug allergy Augmentin amoxicillin / clavulanate Hives Active eCW1 ([facility]) Mold,Dust mites Mold,Dust mites Mold,Dust mites ? Active eCW1 ([facility]) Sulfacet-R Sulfacet-R Sulfacet-R Hives Active eCW1 ([facility]) Family History Family Member Name Family Member Gender Family Member Status Date o f Status Description Data Source(s) Unknown Unknown Problem MEDENT ([facility]) mother Encounters Encounter Providers Location Date Indications Data Source(s ) Outpatient Attender: TIMO RANGEL NP Physical Therapy 10/11/2020 0 7:45:00 AM EST MEDENT ([facility]) Unknown [address] [facility] [address] 09/24/2020 12:00:00 AM EST eCW1 [facility] Outpatient [address] [facility] [address] 09/14/2020 12:00:00 AM EST eCW1 ([facility]) Unknown [address] [facility] [address] 09/03/2020 12:00:00 AM EST [facility] Unknown [address] [facility] [address] 08/01/2020 12:00:00 AM EDT eCW1 [facility]) [facility] 03:45:00 PM EDT MEDENT ([facility] Outpatient Attender: Carolyn [place] MD Main office - [place] 07/18/2020 12:00:00 PM EDT MEDENT ([facility] Outpatient Attender: TIMO RANGEL NP Physical Therapy 07/11/2020 0 1:00:00 PM EDT MEDENT ([facility]) Unknown [address] [facility] [address] 07/11/2020 12:00:00 AM EDT eCW1 ([facility]) Outpatient Attender: IMTIAZ WINTERS DPM [place] Office 04/2020 03:45:00 PM EDT MEDENT ([facility] Outpatient [address] [facility] [address] 04/23/2020 12:00:00 AM EDT eCW1 ([facility]) Outpatient Attender: Carolyn [place] MD Main office - [place] 04/16/2020 11:30:00 AM EDT MEDENT ([facility]) Outpatient Attender: TIMO RANGEL NP Physical Therapy 04/10/2020 0 1:15:00 PM EDT MEDENT ([facility]) Outpatient Attender: IMTIAZ WINTERS DPM [place] Office 03/06 03:45:00 PM EDT MEDENT ([facility] Outpatient Attender: Carolyn Craig MD Main office - [place] 02/13/2020 12:30:00 PM EDT MEDENT ([facility]) [address] [address] 01/18/2020 12:00:00 AM EDT eCW1 [facility]) Outpatient Attender: TIMO RANGEL NP Physical Therapy 01/16/2020 0 1:15:00 PM EDT MEDENT ([facility]) [address] [address] 01/03/2020 12:00:00 AM EDT eCW1 [facility]) [address] [address] 12/07/2019 12:00:00 AM EST eCW1 ([facility]) Outpatient Attender: Carolyn [place] MD Main office - [place] 11/15/2019 10:45:00 AM EST MEDENT ([facility]) Outpatient Attender: Nicolle Hi MD Physical Therapy 11/01 09:45:00 AM EST MEDENT ([facility]) Outpatient Attender: IMTIAZ WINTERS [facility] Office 10/06 02:15:00 PM EST MEDENT ([facility] [address] [address] 10/10/2019 12:00:00 AM EST eCW1 ([facility]) [address] [address] 10/04/2019 12:00:00 AM EST eCW1 ([facility]) [address] [address] 09/30/2019 12:00:00 AM EST eCW1 ([facility]) Outpatient Attender: Elvie Cole MD Physical Therap y 09/16/2019 07:00:00 AM EST MEDENT ([facility]) Outpatient Attender: Carolyn Craig MD Main office - [place] 09/14/2019 10:00:00 AM EST MEDENT ([facility]) [facility] [address] [place] [address] 09/07/2019 12:00:00 AM EST eCW1 ([facility]) [address] [address] 09/06/2019 12:00:00 AM EST eCW1 ([facility]) Outpatient Attender: IMTIAZ WINTERS [facility] Office 08/05 02:15:00 PM EST MEDENT ([facility] [...] 10/11/2020 12:00:00 AM EST active Abrahan HERRERA ([facility]) 100 unit/mL (3 mL) 10/11/2020 [...] Pack 07/11/2020 12:00:00 AM EDT active MEDENT ([facility]) 20 % 07/10/2020 12:00:00 AM EDT cream 85 APPLY TO CALLUS ON FEET DAILY APPLY TO CALLUS ON FEET DAILY SOLD: 07/11/2020 [facility] 20 % 07/10/2020 12:00:00 AM EDT cream 85 APPLY TO CALLUS ON FEET DAILY APPLY TO CALLUS ON FEET DAILY SOLD: 09/09/2020 [facility] 20 % 07/10/2020 12:00:00 AM EDT [...] 05/02/2020 12:00:00 AM EDT ORAL active MEDENT ([facility] ) 32 gauge x 5/32" 04/26/2020 [...] {tablet} active Singulair 10 MG eCW1 ([facility]) terbinafine 250 MG Oral Tablet Terbinafine HCL [...] Sodium 03/09/2020 12:00:00 AM EDT active MEDENT ([facility]) 500 mg 03/09/2020 12:00:00 AM [...] Hydrocodone-Acetaminophen 03/01/2020 12:00:00 AM EDT completed MEDENT ([facility]) 140 mg/mL 02/29/2020 12:00:00 AM [...] DAY MAXIMUM DAILY DOSE =3 SOLD: 03/29/2020 [facility] BLOOD SUGAR DIAGNOSTIC 02/20/2020 12:00:00 AM EDT strip 100 TEST DIRECTE THREE TIMES A DAY MAXIMUM DAILY DOSE =3 TEST DIRECTE THREE TIMES A DAY MAXIMUM DAILY DOSE =3 SOLD: 02/23/2020 [facility] 100 unit/mL 01/30/2020 12:00:00 AM EDT solution 10 INJECT 25 UNITS UNDER THE SKIN DIRECTED MAX OF 25 UNITS PER DAY, - DISCARD ANY UNUSED PORTION AFTER 30 DAYS OPEN PER FREIGHT DISPATCHER INJECT 25 UNITS UNDER THE SKIN DIRECT ED MAX OF 25 UNITS PER DAY, - DISCARD ANY UNUSED PORTION AFTER 30 DAYS OPEN PER FREIGHT DISPATCHER SOLD: 02/06/2020 [facility] buspirone hydrochloride [...] Hydrocodone-Acetaminophen 01/23/2020 12:00:00 AM EDT completed MEDENT ([facility] ) 100 unit/mL (3 mL) 01/17/2020 [...] Oxycodone-Acetaminophen 01/12/2020 12:00:00 AM EDT completed MEDENT ([facility] ) 0.5 mL 30 gauge x [...] Levetiracetam 12/27/2019 12:00:00 AM EDT active MEDENT ([facility] Primidone 50 MG Oral Tablet Primidone 12/27/2019 12:00:00 AM EDT ORAL active MEDENT ([facility]) 750 mg 12/27/2019 12:00:00 AM EDT tablet 60 TAKE ONE TABLET BY MOUTH TWICE A DAY TAKE ONE TABLET BY MOUTH TWICE A DAY SOLD: 04/10/2020 [facility] 50 mg 12/27/2019 12:00:00 AM EDT tablet 60 TAKE ONE TABLET BY MOUTH TWICE A DAY TAKE ONE TABLET BY MOUTH TWICE A DAY SOLD: 05/10/2020 [facility] 50 mg 12/27/2019 12:00:00 AM EDT [...] DIRECTED THREE TIMES A DAY SOLD: 10/28/2019 [facility] 32 gauge x 5/32" 10/27/2019 12:00:00 [...] AM EST active 2 puffs eCW1 ([facility]) 120 ACTUAT Budesonide 0.08 MG/ACTUAT / f ormoterol fumarate 0.0045 MG/ACTUAT Metered Dose Inhaler [Symbicort] Symbicort 80-4.5 MCG/ACT Symbicort 80-4.5 MCG/ACT 10/03/2019 12:00:00 AM EST active 2 puffs eCW1 ([facility]) 100 unit/mL 09/07/2019 12:00:00 AM EST solution 10 INJECT 25 UNITS SUBCUTANEOUSLY DIRECTED MAXIMUM DAILY DOSE = 25 UNITS INJECT 25 UNITS SUBCUTANEOUSLY DIRECTED MAXIMUM DAILY DOSE = 25 UNITS SOLD: 09/13/2019 [facility] [email or web address] BLOOD SUGAR DIAGNOSTIC 09/06/2019 12:00:00 AM EST [...] Drugs fluticasone (FLONASE) 50 MCG/ACT nasal spray 7023-1346-50 10/29/2018 12:00:00 AM EST 1 {spray} Nasal active 1 spray by Rodney al route daily [facility] Fluocinolone Acetonide 0.1 MG/ML Topical Solution fluocinolone (SYNALAR) 0.01 % external solution fluocinolone (SYNALAR) 0.01 % external solution 2018 12:00:00 AM EST active 5 drops each ear twice a day as needed [facility] Insurance Providers Payer name Policy type / Coverage type Policy ID Covered libertarian ID Covered libertarian's relationship to cunningham Policy Cunningham Plan Information [facility] [id number] SP [id number] [facility] O [id number] S [id number] [facility] [id number] SP [id number] ANSI-Medicaid [id number] ANSI-Medicaid [id number] ANSI-Medicaid [id number] ANSI-Medicaid [id number] ANSI-Medicaid [id number] ANSI-Medicaid [id number] ANSI-Medicaid [id number] ANSI-Medicaid [id number] Ghi FHP-(DO Not Use) Medigap Part B [id number] Self [id number] Pma Ins ([place]) Workers Compensation [id number] Self [id number] [facility] Commercial [id number] Self [id number] [facility] Plan Medigap Part B [id number] Self [id number] [place]ig[place] Part B [id number] Self [id number] [facility] I [id number] Self [id number] ANSI-Medicaid [id number] ANSI-Medicaid [id number] [facility] Commercial [id number] Self [id number] Medicaid [place] Med[place] Part B [id number] Self [id number] [facility] Commercial [id number] Self [id number] [facility] Plan Medigap Part B [id number] Self [id number] ANSI-Medicaid [id number] ANSI-Medicaid [id number] ANSI-Medicaid [id number] ANSI-Medicaid [id number] Ghi FHP-(DO Not Use) Medigap Part B [id number] Self [id number] Pma Ins ([place]) Workers Compensation [id number] Self [id number] [facility] Commercial [id number] Self [id number] ANSI-Medicaid [id number] ANSI-Medicaid [id number] [facility] OFFICE OF VICTIM SERVICES [id number] [facility] Commercial [id number] Self [id number] Medicaid [place] Medigap Part B [id number] Self [id number] Ghi FHP-(DO Not Use) Medigap Part B [id number] Self [id number] Pma Ins (WC) Workers Compensation [id number] Self [id number] [facility] Commercial [id number] Self [id number] ANSI-Medicaid [id number] ANSI-Medicaid [id number] [facility] Commercial [id number] Self [id number] [facility] Health Maintenance Organization (HMO) [id number] Self [id number] Medicaid [place] Medigap Part B [id number] Self [id number] [facility] Health Maintenance Organization (HMO) [id number] Self [id number] [facility] [id number] SP [id number] [facility] Health Maintenance Organization (HMO) [id number] Self [id number] Medicaid [place] Medigap Part B [id number] Self [id number] Ghi FHP-(DO Not Use) Medigap Part B [id number] Self [id number] Pma Ins (WC) Workers Compensation [id number] Self [id number] [facility] Commercial [id number] Self [id number] Ghi FHP-(DO Not Use) Medigap Part B [id number] Self [id number] Pma Ins ([place]) Workers Compensation [id number] Self [id number] [facility] Plan Commercial [id number] Self [id number] Ghi FHP-(DO Not Use) Medigap Part B [id number] Self [id number] Pma Ins ([place]) Workers Compensation [id number] Self [id number] [facility] Commercial [id number] Self [id number] [place] [id number] Self [id number] [place] Med[place] Part B [id number] Self [id number] [place] Med[place] Part B [id number] Self [id number] [facility] Health Maintenance Organization (HMO) [id number] Self [id number] [facility] Hmo Commercial [id number] Self [id number] [facility] Commercial [id number] Self [id number] [place] Med[place] Part [place] [id number] Self [id number] [facility] Commercial [id number] Self [id number] [place] Medigap Part B [id number] Self [id number] Ghi FHP-(DO Not Use) Medigap Part B [id number] Self [id number] Pma Ins ([place]) Workers Compensation [id number] Self [id number] [facility] Commercial [id number] Self [id number] [employer] Hmo Commercial [id number] Self [id number] [employer] Hmo Commercial [id number] Self [id number] Ghi FHP-(DO Not Use) Medigap Part B [id number] Self [id number] Pma Ins ([place]) Workers Compensation [id number] Self [id number] [facility] Commercial [id number] Self [id number] [employer] Hmo Commercial [id number] Self [id number] [employer] [facility] Hmo Commercial [id number] Self [id number] [facility] COMM[facility]ITY [facility]AN MCDO [id number] SP [id number] [employer] Hmo Commercial [id number] Self [id number] UHC I [id number] Self [id number] MEDICAID [id number] SP [id number] [facility] Hmo Commercial [id number] Self [id number] MEDICAID M [id number] Medicaid [place] [id number] Self [id number] [facility] Hmo Commercial [id number] Self [id number] [facility] Hmo Commercial [id number] Self [id number] [employer] Hmo Commercial [id number] Self [id number] [employer] Hmo Commercial [id number] Self [id number] [employer] Hmo Commercial [id number] Self [id number] [facility] Commercial [id number] Self [id number] [employer] Hmo Commercial [id number] Self [id number] Ghi FHP-(DO Not Use) Medigap Part B Self Pma Ins (WC) Workers Compensation Self [facility] Plan Medigap Part B Self [place] Part B Self [facility] Plan Commercial Self UNHC COMMUNITY PLAN MCDHMO [id number] SP [id number] [employer] Commercial Self EXCELLUS I [id number] Self [id number] [facility] P UNAVAILABLE S UNAVAILABLE UNHC AMERICHOICE XIX -O [id number] 18 [id number] BLUE CROSS BLUE SHIELD-O/P [id number] 18 [id number] BLUE CROSS GODOY PLAN [id number] SP [id number] SELF PAY P 000 S 000 BLUE CROSS BLUE SHIELD-O/P [id number] 18 [id number] SELF PAY UNAVAILABLE UNAVAILA BLE HMO BLUE OPTION W [id number] S [id number] HMO BLUE [id number] SP [id number] HMO BLUE OPTION W [id number] S V [id number] Problems, Conditions, and Diagnoses Code Display Name Description Problem Type Effective Dates Data Source(s) Z12.31 [id number] Encounter for screen ing mammogram for malignant neoplasm of breast Problem 04/23/2020 12:00:00 AM EDT eCW1 ([facility]) 31397883 Type 2 diabetes mellitus Type 2 diabetes mellitus Prob osvaldo 11/17/2019 12:00:00 AM EST MEDENT ([facility] ) 15499046 Essential hypertension Essential hypertension Problem 11/17/2019 12:00:00 AM EST MEDENT ([facility] ) [id number] Type 2 diabetes mellitus Type 2 diabetes mellitus Prob osvaldo 08/30/2019 12:00:00 AM EST MEDENT ([facility] [id number] Pronation Pronation Problem 08/30/2019 12:00:00 AM ES T MEDENT ([facility] Surgeries/Procedures Procedure Description Date Indications Data Source(s) Amb Glucose Monitoring Interpretation And Report 10/11 12:00:00 AM EST MEDENT ([facility] ) Injection, Single Or Multiple trigger points one or two musc les 09/20/2020 12:00:00 AM EST MEDENT ([facility] ) Inj, Anesth Agent, Trigeminal 09/20/2020 12:00:[address] MEDENT ([facility] ) INJECTION ANES OTHER PERIPHERAL NERVE/BRANCH 0 12:00:00 AM EST MEDENT ([facility] ) MRI SPINAL CANAL LUMBAR W/O CONTRAST MATERIAL 10/28/20 20 12:00:00 AM EDT MEDENT ([facility] ) MRI SPINAL CANAL LUMBAR W/O CONTRAST MATERIAL 08/01/20 20 12:00:00 AM EDT MEDENT ([facility] ) RADEX FOOT COMPLETE MINIMUM 3 VIEWS 07/30/2020 12:00:0 0 AM EDT MEDENT ([facility] INJECTION SINGLE/VICE PRESIDENT OF NURSING TRIGGER POINT 3/> MUSCLES 020 12:00:00 AM EDT MEDENT ([facility] ) Inj, Anesth Agent, Trigeminal 07/18/2020 12:00:00 AM E DT MEDENT ([facility] ) INJECTION ANES OTHER PERIPHERAL NERVE/BRANCH 0 12:00:00 AM EDT MED[facility] ([facility], ) INJECTION SINGLE/VICE PRESIDENT OF NURSING TRIGGER POINT 3/> MUSCLES 020 12:00:00 AM EDT [facility] ([facility], ) Inj, Anesth Agent, Trigeminal 07/17/2020 12:00:00 AM E DT [facility] ([facility], ) INJECTION ANES OTHER PERIPHERAL NERVE/BRANCH 0 12:00:00 AM EDT [facility] ([facility], ) Amb Glucose Monitoring Interpretation And Report 07/11 12:00:00 AM EDT [facility] ([facility] ) Injection, Single Or Multiple trigger points one or two musc les 06/15/2020 12:00:00 AM EDT [facility] ([facility], ) Inj, Anesth Agent, Trigeminal 06/15/2020 12:00:00 AM E DT [facility] ([facility], ) INJECTION ANES OTHER PERIPHERAL NERVE/BRANCH 0 12:00:00 AM EDT [facility] ([facility], ) Arthroscopy Shoulder W/Lysis & Resection Of Adhesions 05/09/2020 12:00:00 AM EDT [facility] ([facility] ) Arthroscopy Shoulder W/Lysis & Resection Of Adhesions 05/09/2020 12:00:00 AM EDT [facility] ([facility] ) Diabetic Foot Exam 04/10/2020 12:00:00 AM EDT [facility] ([facility] ) Injection, Single Or Multiple trigger points one or two musc les 04/10/2020 12:00:00 AM EDT [facility] ([facility]) Inj, Anesth Agent, Trigeminal 04/10/2020 12:00:00 AM E DT MED[facility] ([facility], ) INJECTION ANES OTHER PERIPHERAL NERVE/BRANCH 0 12:00:00 AM EDT [facility] ([facility], ) Amb Glucose Monitoring Interpretation And Report 04/10 12:00:00 AM EDT [facility] ([facility] ) Arthroscopy Shoulder W/Lysis & Resection Of Adhesions 03/08/2020 12:00:00 AM EDT [facility] ([facility] ) Injection, Single Or Multiple trigger points one or two musc les 01/31/2020 12:00:00 AM EDT [facility] ([facility]) Inj, Anesth Agent, Trigeminal 01/31/2020 12:00:00 AM E DT [facility] ([facility], ) INJECTION ANES OTHER PERIPHERAL NERVE/BRANCH 0 12:00:00 AM EDT [facility] ([facility], ) Injection, Single Or Multiple trigger points one or two musc les 12/29/2019 12:00:00 AM EDT [facility] ([facility]) Inj, Anesth Agent, Trigeminal 12/29/2019 12:00:00 AM E DT [facility] ([facility]) INJECTION ANES OTHER PERIPHERAL NERVE/BRANCH 0 12:00:00 AM EDT [facility] ([facility], ) Injection, Single Or Multiple trigger points one or two musc les 11/29/2019 12:00:00 AM EST [facility] ([facility]) Inj, Anesth Agent, Trigeminal 11/29/2019 12:00:[address] [facility] ([facility]) INJECTION ANES OTHER PERIPHERAL NERVE/BRANCH 0 12:00:00 AM EST [facility] ([facility]) Amb Glucose Monitoring Interpretation And Report 11/01 12:00:00 AM EST [facility] ([facility] ) Injection, Single Or Multiple trigger points one or two musc les 10/25/2019 12:00:00 AM EST [facility] ([facility]) Inj, Anesth Agent, Trigeminal 10/25/2019 12:00:[address] [facility] ([facility], ) INJECTION ANES OTHER PERIPHERAL NERVE/BRANCH 0 12:00:00 AM EST [facility] ([facility], ) VENIPUNCT, ROUTINE* 10/10/2019 12:00:00 AM EST eCW1 ([facility]) Injection, Single Or Multiple trigger points one or two musc les 09/19/2019 12:00:00 AM EST [facility] ([facility]) Inj, Anesth Agent, Trigeminal 09/19/2019 12:00:[address] [facility] ([facility], ) INJECTION ANES OTHER PERIPHERAL NERVE/BRANCH 9 12:00:00 AM EST [facility] ([facility], ) RADEX SHOULDER COMPLETE MINIMUM 2 VIEWS 09/16/2019 12: 00:00 AM EST [facility] ([facility] ) Magnetic Resonance Angiogtaphy Head W/O Contrast Material(S) 08/20/2019 12:00:00 AM EST [facility] ([facility]) Magnetic Resonance Angiogtaphy Head W/O Contrast Material(S) 08/20/2019 12:00:00 AM EST [facility] ([facility]) MRI BRAIN BRAIN STEM W/O CONTRAST MATERIAL 08/20/2019 12:00:00 AM EST [facility] ([facility], ) MRI BRAIN BRAIN STEM W/O CONTRAST MATERIAL 08/20/2019 12:00:00 AM EST [facility] ([facility] ) MRI SPINAL CANAL CERVICAL W/O CONTRAST MATRL 9 12:00:00 AM EST [facility] ([facility], ) MRI SPINAL CANAL CERVICAL W/O CONTRAST MATRL 9 12:00:00 AM EST [facility] ([facility], ) Results ID Date Data Source [id number] 10/11/2020 09:03:00 AM EST [facility] ([facility] ) Name Value Range Interpretation Code Description Data Lisa rce(s) Supporting Document(s) Hemoglobin A1c/Hemoglobin.total in Blood 6.0 [facility] ([facility] ) Glucose [Mass/volume] in Serum or Plasma 101 [facility] ([facility]) ID Date Data Source [id number] 07/11/2020 01:30:00 PM EDT [facility] ([facility]) Name Value Range Interpretation Code Description Data Lisa rce(s) Supporting Document(s) Creatinine [Mass/volume] in Urine 49.2 mg/dL [facility] ([facility]) Microalbumin [Mass/volume] in Urine Laboratory test result [facility] ([facility]) Microalbumin/Creatinine [Mass Ratio] in Urine 10.1 MCG/MG 0.0-30.0 [facility] ([facility]) [employer] STATES THAT MICROALBUMINURIA IS PRESENT IF THE MICROALBUMIN/CREATININE RATIO EXCEEDS 30 MCG/MG. THE THRESHOLD FOR CLINICAL ALBUMINURIA IS REACHED AT 300 MCG/MG. THE CLASSIFICATION OF A PATIENT SHOULD BE BASED UPON AT LEAST 2 OF 3 ABNORMAL RESULTS ON SPECIMENS COLLECTED WITHIN A 3 TO 6 MONTH TIME FRAME. ID Date Data Source [id number] 07/11/2020 01:09:00 PM EDT [facility] ([facility]) Name Value Range Interpretation Code Description Data Lisa rce(s) Supporting Document(s) Hemoglobin A1c/Hemoglobin.total in Blood 6.3 [facility] ([facility]) ID Date Data Source [id number] 04/16/2020 03:36:00 PM EDT [facility] ([facility]) Name Value Range Interpretation Code Description Data Lisa rce(s) Supporting Document(s) Laboratory test finding (navigational concept) Laboratory test result [facility] ([facility]) ID Date Data Source [id number] 04/10/2020 02:06:00 PM EDT [facility] ([facility] [...] Little GFR Left</content>
<content>ESRD GFR <15 on CARPET CLEANING TECHNICIAN</content>
<content></content> Creatinine For GFR 0.87 mg/dL 0.55-1.30 [...] ([facility] ID Date Data Source [id number] 04/10/2020 02:06:00 PM EDT [facility] ([facility] [...] [facility] ID Date Data Source [id number] 04/10/2020 02:06:00 PM EDT [facility] ([facility] [...] ([facility] ID Date Data Source [id number] 04/10/2020 01:22:00 PM EDT [facility] ([facility]) Name Value Range Interpretation Code Description Data Lisa rce(s) Supporting Document(s) Hemoglobin A1c/Hemoglobin.total in Blood 6.5 [facility] ([facility]) ID Date Data Source [id number] 03/05/2020 10:20:00 AM EDT [facility] ([facility]) Name Value Range Interpretation Code Description Data Lisa rce(s) Supporting Document(s) Laboratory test finding (navigational concept) Laboratory test result [facility] ([facility]) Testing was performed using the greyson(R) SARS-CoV-2 test. This test was developed and its performance characteristics determined by [employer]. This test has not been FDA cleared [...] in this assay. Performed at: - [facility] [address] [id number] Warranty Administrator: Rita Peterson MD, Phone: [phone] Not Detected ID Date Data Source [id number] 03/05/2020 10:20:00 AM EDT [facility] Name Value Range Interpretation Code Description Data Lisa rce(s) Supporting Document(s) SARS CORONAVIRUS 2 RNA [facility] This lab was ordered by [facility] and reported by [facility]. ID Date Data Source [id number] 03/01/2020 03:28:00 PM EDT [facility] ([facility]) Name Value Range Interpretation Code Description Data Lisa rce(s) Supporting Document(s) Creatinine For GFR 0.82 mg/dL 0.55-1.30 [facility] ([facility]) Blood Urea Nitrogen 11 mg/dL 7-18 [facility] Glucose, Fasting 107 mg/dL 70-100 [facility] ([facility]) Sodium Level 138 meq/L 136-145 [facility] ([facility]) Glomerular Filtration Rate Laboratory test result [facility] ([facility]) <content>Units are mL/min/1.73 m2</content>
<content></content>
<content>Chronic Kidney Disease Staging per NKF:</content>
<content></content>
<content>Stage I & II GFR >=60 Normal to Mildly Decreased</content>
<content>Stage III GFR 30-59 Moderately Decreased</content>
<content>Stage IV GFR 15-29 Severely Decreased</content>
<content>Stage V GFR <15 Very Little GFR Left</content>
<content>ESRD GFR <15 on CARPET CLEANING TECHNICIAN</content>
<content></content> Potassium Serum 4.2 meq/L 3.5-5.1 [facility] ([facility] ) Chloride Level 105 meq/L 98-107 [facility] ([facility]) Anion Gap 6 meq/L 8-16 [facility] ([facility]) Carbon Dioxide Level 27 meq/L 21-32 [facility] ([facility]) Calcium Level 8.7 mg/dL 8.5-10.1 [facility] ([facility]) ID Date Data Source [id number] 03/01/2020 03:27:00 PM EDT [facility] ([facility]) Name Value Range Interpretation Code Description Data Lisa rce(s) Supporting Document(s) Hemoglobin A1c 6.5 % [facility] ([facility]) REFERENCE RANGES: 4.5-5.6% NORMAL 5.7-6.4% SUGGESTS IMPAIRED GLUCOSE META BOLISM >= 6.5% ABNORMAL Estimated Average Glucose 140 mg/dL 60-110 [facility] ([facility]) ID Date Data Source [id number] 01/12/2020 10:35:00 AM EDT [facility] Name Value Range Interpretation Code Description Data Lisa rce(s) Supporting Document(s) SARS CORONAVIRUS 2 RNA [facility] This lab was ordered by [facility] and reported by [facility]. ID Date Data Source [id number] 10/10/2019 12:00:00 AM EST eCW1 ([facility]) Name Value Range Interpretation Code Description Data Lisa rce(s) Supporting Document(s) Microalbumin/Creatinine [Ratio] in Urine 22.7 0.0-30.0 DEBI/CREAT RATIO eCW1 ([facility]) Microalbumin/Creatinine [Mass Ratio] in Urine 22.0 CREATININE, URINE eCW1 ([facility]) Albumin/Creatinine [Mass Ratio] in Urine < 5.0 MALB URINE SIEMENS eCW1 ([facility]) ID Date Data Source Comprehensive Metabolic Profile (CMP) 10/10/2019 12:00:00 AM EST eCW1 ([facility]) Name Value Range Interpretation Code Description Data Lisa rce(s) Supporting Document(s) 287 70-100 GLUCOSE, FASTING eCW1 ([facility]) 1.01 0.55-1.30 CREATININE FOR GFR eCW1 ([facility]) > 60.0 >58 GLOMERULAR FILTRATION RATE eCW 1 ([facility]) 12 7-18 BLOOD UREA NITROGEN eCW1 ([facility]) 136 136-145 SODIUM LEVEL eCW1 ([facility]) 7 7-37 AST/SGOT eCW1 ([facility]) 97 98-107 CHLORIDE LEVEL eCW1 ([facility]) 4.6 3.5-5.1 POTASSIUM SERUM eCW1 ([facility]) 30 21-32 CARBON DIOXIDE LEVEL eCW1 ([facility]) 9.5 8.5-10.1 CALCIUM LEVEL eCW1 ([facility]) 16 12-78 ALT/SGPT eCW1 ([facility]) 7.6 6.4-8.2 TOTAL PROTEIN eCW1 ([facility]) 0.7 0.2-1.0 BILIRUBIN,TOTAL eCW1 ([facility]) 55 45-117 ALKALINE PHOSPHATASE eCW1 ([facility]) 0.95 1.00-1.93 ALBUMIN/GLOBULIN RATIO eCW1 ([facility]) 3.7 3.2-5.2 ALBUMIN eCW1 ([facility]) ID Date Data Source CBC with Differential 10/10/2019 12:00:00 AM EST eCW1 ([facility]) Name Value Range Interpretation Code Description Data Lisa rce(s) Supporting Document(s) 4.30 4.00-5.40 RED BLOOD COUNT eCW1 ([facility]) 16.8 4.0-10.0 WHITE BLOOD COUNT eCW1 ([facility]) 101.4 80.0-96.0 MEAN CORPUSCULAR VOLUME e CW1 ([facility]) 14.4 12.0-15.5 HEMOGLOBIN eCW1 ([facility]) 33.5 27.0-33.0 MEAN CORPUSCULAR HEMOGLOB IN eCW1 ([facility]) 43.6 36.0-47.0 HEMATOCRIT eCW1 ([facility]) 33.0 32.0-36.5 MEAN CORPUSCULAR HGB CONC eCW1 ([facility]) 86.4 36.0-66.0 NEUTROPHILS % eCW1 ([facility]) 338 150-450 PLATELET COUNT, AUTOMATED eCW1 ([facility]) 13.2 11.5-14.5 RED CELL DISTRIBUTION WID TH eCW1 ([facility]) 0.0 0.0-3.0 EOS % eCW1 ([facility]) 0.4 0.0-1.0 BASO % eCW1 ([facility]) 10.6 24.0-44.0 LYMPH % eCW1 ([facility]) 2.3 0.0-5.0 MONO % eCW1 ([facility]) 0.4 0.0-0.8 MONO # eCW1 ([facility]) 0.0 0.0-0.5 EOS # eCW1 ([facility]) 1.8 1.5-5.0 LYMPH # eCW1 ([facility]) 14.5 1.5-8.5 NEUTROPHILS # eCW1 ([facility]) 0.1 0.0-0.2 BASO # eCW1 ([facility]) Procedure Social History Code Duration Value Status Description Data Source(s ) Smoking 09/14/2020 12:00:00 AM EST Current Smoker completed Curre nt Smoker eCW1 ([facility]) Smoking 09/14/2020 12:00:00 AM EST Current Smoker completed Curre nt Smoker eCW1 ([facility]) Smoking 07/31/2020 12:00:00 AM EDT Current Smoker completed Curre nt Smoker eCW1 ([facility]) Smoking 07/31/2020 12:00:00 AM EDT Current Smoker completed Curre nt Smoker eCW1 ([facility]) Smoking 07/31/2020 12:00:00 AM EDT Current Smoker completed Curre nt Smoker eCW1 ([facility]) Smoking 04/23/2020 12:00:00 AM EDT Current Smoker completed Curre nt Smoker eCW1 ([facility]) Vital Signs ID Date Data Source UNK Name Value Range Interpretation Code Description Data Source(s) Oxygen saturation in Arterial blood by Pulse oximetry 99 % 99 % [facility] ([facility]) Body mass index (BMI) [Ratio] 23.4 kg/m2 23.4 k g/m2 [facility] ([facility]) Body weight 142.00 [lb_av] 142.00 [lb_av] MEDEN T ([facility]) Body height 65.25 [in_i] 65.25 [in_i] [facility] ([facility] 5'5.25" Body temperature 97.0 [degF] 97.0 [degF] [facility] ([facility]) Heart rate 87 /min 87 /min [facility] ([facility]) Diastolic blood pressure 70 mm[Hg] 70 mm[Hg] [facility] ([facility]) Systolic blood pressure 118 mm[Hg] 118 mm[Hg] M EDENT ([facility]) Diastolic blood pressure 75 mm[Hg] 75 mm[Hg] eCW1 ([facility]) Systolic blood pressure 130 mm[Hg] 130 mm[Hg] e CW1 ([facility]) Body mass index (BMI) [Ratio] 22.11 kg/m2 22.11 kg/m2 [facility] ([facility]) Body height 66 [in_i] 66 [in_i] eCW1 ([facility]) Body weight 62.14 kg 62.14 kg W1 ([facility]) Body weight 137 [lb_av] 137 [lb_av] eCW1 ([facility]) Body temperature 97.1 [degF] 97.1 [degF] [facility] ([facility]) Body mass index (BMI) [Ratio] 22.6 kg/m2 22.6 k g/m2 [facility] ([facility]) Body weight 137.00 [lb_av] 137.00 [lb_av] MEDEN T ([facility]) Body height 65.25 [in_i] 65.25 [in_i] [facility] ([facility] ) 5'5.25" Body temperature 96.6 [degF] 96.6 [degF] [facility] ([facility] ) Heart rate 84 /min 84 /min [facility] ([facility] ) Diastolic blood pressure 80 mm[Hg] 80 mm[Hg] [facility] ([facility] ) Systolic blood pressure 126 mm[Hg] 126 mm[Hg] M EDENT ([facility] ) Diastolic blood pressure 62 mm[Hg] 62 mm[Hg] eCW1 ([facility]) Systolic blood pressure 108 mm[Hg] 108 mm[Hg] e CW1 ([facility]) Body temperature 98.4 [degF] 98.4 [degF] eCW1 ( [facility]) Respiratory rate 17 /min 17 /min eCW1 ([facility]) Heart rate 92 /min 92 /min eCW1 ([facility]) Body mass index (BMI) [Ratio] 22.07 kg/m2 22.07 kg/m2 eCW1 ([facility]) Body height [in_i] eCW1 ([facility]) Body weight 137.8 [lb_av] 137.8 [lb_av] eCW1 ([facility]) Oxygen saturation in Arterial blood by Pulse oximetry 99 % 99 % [facility] ([facility] ) Body mass index (BMI) [Ratio] 22.8 kg/m2 22.8 k g/m2 [facility] ([facility] ) Body weight 138.31 [lb_av] 138.31 [lb_av] MEDEN T ([facility] ) Body height 65.25 [in_i] 65.25 [in_i] [facility] ([facility] 5'5.25" Heart rate 89 /min 89 /min [facility] ([facility] ) Diastolic blood pressure 70 mm[Hg] 70 mm[Hg] [facility] ([facility] ) Systolic blood pressure 124 mm[Hg] 124 mm[Hg] M EDENT ([facility] ) Body temperature 98.2 [degF] 98.2 [degF] [facility] ([facility] ) Oxygen saturation in Arterial blood by Pulse oximetry 97 % 97 % [facility] ) Body mass index (BMI) [Ratio] 22.8 kg/m2 22.8 k g/m2 [facility] ([facility]) Body weight 138.38 [lb_av] 138.38 [lb_av] MEDEN T ([facility]) Body height 65.25 [in_i] 65.25 [in_i] [facility] ([facility]) 5'5.25" Heart rate 82 /min 82 /min [facility] ([facility]) Diastolic blood pressure 60 mm[Hg] 60 mm[Hg] [facility] ([facility]) Systolic blood pressure 124 mm[Hg] 124 mm[Hg] M EDENT ([facility]) Systolic blood pressure 118 mm[Hg] 118 mm[Hg] e CW1 ([facility]) Body temperature [degF] eCW1 ([facility]) Respiratory rate 16 /min 16 /min eCW1 ([facility]) Heart rate 84 /min 84 /min eCW1 ([facility]) Body mass index (BMI) [Ratio] 22.26 kg/m2 22.26 kg/m2 eCW1 ([facility]) Body height [in_us] eCW1 ([facility]) Body weight Measured 139 [lb_av] 139 [lb_av] eC W1 ([facility]) Diastolic blood pressure 74 mm[Hg] 74 mm[Hg] eCW1 ([facility]) Patient Treatment Plan of Care Planned Activity Planned Date Details Description Data Source (s) montelukast 10 MG Oral Tablet [Singulair] 04/23/2020 12:00:00 AM ED T eCW1 ([facility]) 120 ACTUAT Budesonide 0.08 MG/ACTUAT / f ormoterol fumarate 0.0045 MG/ACTUAT Metered Dose Inhaler [Symbicort] 10/03/2019 12:00:00 AM EST eCW1 ([facility]) Fluocinolone Acetonide 0.1 MG/ML Topical Solution 10/29/2018 12: 00:00 AM [facility] fluticasone (FLONASE) 50 MCG/ACT nasal spray 10/29/2018 12:00:00 AM [facility]
--- NOTE | 2020-10-17 22:07 | CR.PDOC ---
Plastic Surgery Consultation Date of Consultation 10/17/20 History and Physical HISTORY OF PRESENT ILLNESS: 44 y o F w PMHx of Asthma, s/p US guided L breast bx today, called the office in the PM due to SOB and feeling that it is hard to breath. She tried the rescue inhaler without improvement. Since there is always risk of pneumothorax post ultrasound guided procedures of the breast, Patient was recommended to go to ER to r/o pneumothorax. PAST MEDICAL HISTORY: 1. Asthma PAST SURGICAL HISTORY: INCLUDES: 1. L US guided breast bx today ALLERGIES: Please see below. FAMILY HISTORY: see chart HOME MEDICATIONS: Please see below. REVIEW OF SYSTEMS: GENERAL: anxious HEENT: feels throat is closing MUSCULOSKELETAL: tender left breast post bx SKIN: no rash post bx PSYCHIATRIC: anxious ENDOCRINE: DM1 PULMONARY:asthma with acute SOB not improving with the inhaler PHYSICAL EXAMINATION: VITALS SIGNS: Please see below. GENERAL APPEARANCE: alert, oriented, anxious SKIN: no significant bruising BREAST: L breast with steri strips , no bleeding, no ecchymosis Left breast is soft LUNGS: saturating in upper 90s on RA HEART: no tachycardia ABDOMEN: Abdomen is nondistended EXTREMITIES: no gross deformity LABORATORY DATA: Please see below. IMAGING STUDIES: CXR no pneumothorax IMPRESSION: 44 y y o F w PHMHx of Asthma not improving post rescue inhaler use, s/p L breasy US guided bx today, sent to ER for eval of SOB and to r/o PTX PLANS: - no PTX on CXR, saturating well on RA - Asthma management per ER - keep ISMAEL wrap in place over chest till tomorrow AM - keep SteriStrips in place till office f/u next week - Plan discussed with ED staff and the patient Vital Signs Vital Signs Date Time Temp Pulse Resp B/P (MAP) Pulse Ox O2 Delivery O2 Flow Rate FiO2 10/17/20 19:13 10/17/20 18:00 98.1 97 18 99 Room Air Home Medications Scheduled Atorvastatin Calcium (Atorvastatin Calcium) 10 Mg Tab, 10 MG PO DAILY, (Reported) Buspirone HCl (Buspirone HCl) 10 Mg Tab, 10 MG PO DAILY, (Reported) Cetirizine HCl (Cetirizine HCl) 10 Mg Tab, 10 MG PO DAILY, (Reported) Escitalopram Oxalate (Lexapro) 10 Mg Tab, 20 MG PO DAILY, (Reported) Fluticasone/Vilanterol (Breo Ellipta 100-25 Mcg INH) 1 Each Blst.w.dev, 1 PUFF PO BID, (Reported) Insulin Glargine,Hum.rec.anlog (Basaglar Kwikpen U-100) 100 Unit/1 Ml Insuln.pen, 12 UNIT SC DAILY, (Reported) Insulin Glargine,Hum.rec.anlog (Basaglar Kwikpen U-100) 100 Unit/1 Ml Insuln.pen, 6 UNIT SC QHS, (Reported) Levetiracetam (Keppra) 750 Mg Tab, 750 MG PO BID, (Reported) Lisinopril (Lisinopril) 5 Mg Tab, 5 MG PO DAILY, (Reported) Montelukast Sodium (Montelukast Sodium) 10 Mg Tab, 10 MG PO DAILY, (Reported) Primidone (Primidone) 50 Mg Tab, 50 MG PO BID, (Reported) Scheduled PRN Albuterol Sulfate (Ventolin Hfa) 18 Gm Hfa.aer.ad, 2 PUFF INH Q4-6HP PRN for wheezing, (Reported) Miscellaneous Medications Insulin Glulisine (Apidra) 100 Unit/1 Ml Vial, 0 SC, (Reported) Meclizine HCl (Meclizine HCl) 25 Mg Tablet, (Reported) Allergies Coded Allergies: Penicillins (Verified Allergy, Unknown, 02/27/19) HIVES Sulfa (Sulfonamide Antibiotics) (Verified Allergy, Unknown, 01/22/19) amoxicillin (Verified Allergy, Unknown, 01/22/19) LEE CARLSON DO Oct 17, 2020 22:07
== END 2020-10-17 19:56 | disposition home or self-care (01) ==
LOC: M ED 17:59
DX: J45.909 Unspecified asthma, uncomplicated (principal); R06.02 Shortness of breath; Z98.890 Other specified postprocedural states; E10.9 Type 1 diabetes mellitus without complications; R56.9 Unspecified convulsions; Z79.899 Other long term (current) drug therapy; Z79.51 Long term (current) use of inhaled steroids; Z88.0 Allergy status to penicillin; Z88.2 Allergy status to sulfonamides

== ENCOUNTER → 2020-10-17 | Outpatient (CLI) | payer OTHER ==
--- NOTE | 2020-10-17 11:57 | REP ---
INDICATION: N63.20 LT BREAST MASS,US GUIDED BIOPSY. COMPARISON: 09/14/2020. TECHNIQUE: Real-time sonographic evaluation of left breast performed. FINDINGS: Ultrasound guidance was provided for Dr. Albarado who performed ultrasound-guided biopsy of an area of abnormal hypoechogenicity in the 12 o'clock region left breast. Biopsy needle and biopsy clip appear to be within the abnormality sonographically. IMPRESSION: Ultrasound guidance provided for Dr. Albarado who performed ultrasound-guided biopsy left breast. RECOMMENDATION: Clinical follow-up. <Electronically signed by Nasir [place] > 10/17/20 1157
--- NOTE | 2020-10-17 12:51 | REP ---
INDICATION: N63.20 N63.20 LT BREST MASS,POST US GUIDED BIOPSY. COMPARISON: 09/14/2020. TECHNIQUE: ML and CC views left breast performed. FINDINGS: Biopsy clip is noted within the fibroglandular density at 12 o'clock left breast status post ultrasound-guided biopsy by Dr. Albarado today. IMPRESSION: Appropriate positioning of biopsy clip 12 o'clock left breast status post ultrasound-guided biopsy performed by Dr. Albarado. RECOMMENDATION: Clinical follow-up. <Electronically signed by Nasir [place] > 10/17/20 [id number]
[2020-10-17 16:59] VITALS: BP 144/88
--- NOTE | 2020-10-20 21:12 | ROOPDOC ---
[facility] Report Of Operation Report of Operation DATE OF PROCEDURE: 10/17/20 DIAGNOSIS: left breast suspicious lesion PROCEDURE: Ultrasound guided biopsy of left breast suspicious lesion with clip placement SURGEON: Lee Carlson BLOOD LOSS: minimal COMPLICATIONS: none Lidocaine 1% LOT [id number] Expiration 06/27 Sodium Bicarbonate 8.4% LOT [id number] Expiration 03/25 Hydromark clip LOT [id number] Expiration 07/27 SHAPE 4 Bx device: BARD [id number] x10 cm LOT [id number] Expiration 05/27 Informed consent was obtained. The most common risk and possible complications including bleeding, hematoma, bruising, infection, injury to surrounding structures were explained to the patient and the patient expressed understa nding. Patient was placed on the bed in the supine position. Appropriate time out was done stating patients name, date of , and the procedure to be performed. The left breast was prepped and draped in the usual fashion. The ultrasound was used to confirm the location of the lesion in the left breast at 12:00 in periareolar area. Palpation was used to park the extent of the lesion. Patient previously confirmed the lesion to be at the marked site. Plain Lidocaine 1% and 8.4% sodium bicarbonate 10:1 mix was used to anesthetize the skin, the biopsy site and tissues along the anticipated biopsy tract. Small skin incision was made with blade number 11. BARD Marquee 14G cannula with introducer ([id number]) was inserted through the incision and advanced under the ultrasound guidance to position immediately adjacent to the lesion. Next, the introducer was removed and BARD Marquee 14G biopsy device was places in the cannula. Pre-biopsy imaging, and post-biopsy imaging were captured. Five good core biopsies were taken at various levels of the lesion. Specimen was placed in formaldehyde, labeled with appropriate biopsy site and patients name, and sent to pathology for evaluation. Next, the biopsy device was withdrawn and a clip introducer was inserted into the biopsy site via the cannula. The shape 4 Hydromark clip was deployed under sonographic guidance. Post-clip placement image was captured. Manual pressure over the biopsy cavity and tract was held after the clip introducer was withdrawn. No bleeding was noted upon removal of the pressure. Post-biopsy mammogram of the left breast was obtained and showed clip in expected position. Postprocedural dressing was placed. Patient tolerated procedure well although she was very anxious and crying post procedure. Discharge instructions were discussed with the patient and the patient expressed understanding. LEE CARLSON DO Oct 20, 2020 21:12
== END ==
LOC: M WHCPRO 08:37
PROVIDERS: ATTEND Surgery
DX: N60.22 Fibroadenosis of left breast (principal); N63.20 Unspecified lump in the left breast, unspecified quadrant

== ENCOUNTER → 2020-10-23 | Outpatient (CLI) | payer OTHER ==
[~2020-10-23] MED LIST changes: -LISI-542 PO; +LISI-898 PO; +MONT10TA10 PO; -MONT5TAB2 PO
[2020-10-23 16:35] LABS: ALBUMIN 3.9 GM/DL (3.2-5.2); ALT/SGPT 18 U/L (12-78); BILIRUBIN,TOTAL 0.4 MG/DL (0.2-1.0); BLOOD UREA NITROGEN 8 MG/DL (7-18); CALCIUM LEVEL 9.7 MG/DL (8.5-10.1); CARBON DIOXIDE LEVEL 28 MEQ/L (21-32); CHLORIDE LEVEL 103 MEQ/L (98-107); CHOLESTEROL LEVEL 188 MG/DL (<200); CHOLESTEROL RISK RATIO 1.724 (<5); CREATININE FOR GFR 0.89 MG/DL (0.55-1.30); GLOMERULAR FILTRATION RATE > 60.0 (>58); GLUCOSE, FASTING 198 MG/DL (70-100); HDL CHOLESTEROL 109 MG/DL (>40); LDL CHOLESTEROL 66 MG/DL (<100); NON-HDL-C 79 MG/DL; POTASSIUM SERUM 4.8 MEQ/L (3.5-5.1); SODIUM LEVEL 136 MEQ/L (136-145); TOTAL PROTEIN 7.2 GM/DL (6.4-8.2); TRIGLYCERIDES LEVEL 64 MG/DL (<150)
== END ==
LOC: M LAB 15:15
PROVIDERS: ATTEND Nurse Practitioner Family
DX: E78.5 Hyperlipidemia, unspecified (principal)

== ENCOUNTER → 2020-10-24 | Outpatient (REF) | payer OTHER ==
[2020-10-24 18:19] LABS: APPEARANCE, URINE HAZY (CLEAR); BACTERIA, URINE AUTO 1+ (NEGATIVE); BILIRUBIN, URINE AUTO NEGATIVE (NEGATIVE); BLOOD, URINE BLOOD NEGATIVE (NEGATIVE); COLOR, URINE YELLOW (YELLOW); GLUCOSE, URINE (UA) AUTO NEGATIVE (NEGATIVE); KETONE, URINE AUTO NEGATIVE (NEGATIVE); LEUKOCYTE ESTERASE, URINE AUTO 3+ (NEGATIVE); MUCUS, URINE SMALL (NEGATIVE); NITRITE, URINE AUTO POSITIVE (NEGATIVE); PROTEIN, URINE AUTO NEGATIVE (NEGATIVE); RBC, URINE AUTO 4 /HPF (0-3); SPECIFIC GRAVITY URINE AUTO 1.005 (1.002-1.035); SQUAMOUS EPITHELIAL CELL UR AU 2 /HPF (0-6); UROBILINOGEN, URINE AUTO 0.2 mg/dL (0.0-2.0); WBC, URINE AUTO 61 /HPF (0-3)
== END ==
LOC: M SFHCPLAZ 16:42
PROVIDERS: ATTEND Physician Assistant Medical
DX: R30.0 Dysuria (principal)

== ENCOUNTER → 2021-02-26 | Outpatient (REF) | payer OTHER ==
[~2021-02-26] MED LIST changes: +GABA-283 PO; -GABA-845 PO
== END ==
LOC: M SFHCPLAZ 12:44
PROVIDERS: ATTEND Physician Assistant Medical
DX: R14.0 Abdominal distension (gaseous) (principal)

== ENCOUNTER 2021-02-28 11:50 | Emergency (ER) | payer OTHER ==
[~2021-02-28] VITALS: Ht 170.2 cm; Wt 64.0 kg
[2021-02-28] MEDS ORDERED: methylPREDNISolone 125MG 2ML VIAL IV ONE (12:45)
--- NOTE | 2021-02-28 13:10 | REP ---
INDICATION: DYSPNEA/COUGH COMPARISON: 10/17/2020 TECHNIQUE: Portable AP view of the chest FINDINGS: The mediastinum and cardiac silhouette are stable and within normal limits for portable technique. The lung marroquin are clear without acute consolidation, effusion, or pneumothorax. Skeletal structures are intact. IMPRESSION: No acute cardiopulmonary process appreciated. <Electronically signed by Kendall Clarke > 02/28/21 [id number]
[2021-02-28 13:22] LABS: BASO # 0.1 10^3/uL (0.0-0.2); BASO % 0.6 % (0.0-1.0); EOS # 0.2 10^3/uL (0.0-0.5); EOS % 1.7 % (0.0-3.0); HEMATOCRIT 38.7 % (36.0-47.0); LYMPH # 3.5 10^3/uL (1.5-5.0); LYMPH % 30.2 % (24.0-44.0); MEAN CORPUSCULAR HEMOGLOBIN 33.5 pg (27.0-33.0); MEAN CORPUSCULAR HGB CONC 33.6 g/dl (32.0-36.5); MEAN CORPUSCULAR VOLUME 99.7 fl (80.0-96.0); MONO # 0.8 10^3/uL (0.0-0.8); MONO % 6.7 % (2.0-8.0); NEUTROPHILS # 6.9 10^3/uL (1.5-8.5); NEUTROPHILS % 60.5 % (36.0-66.0); PLATELET COUNT, AUTOMATED 234 10^3/uL (150-450); RED BLOOD COUNT 3.88 10^6/uL (4.00-5.40); WHITE BLOOD COUNT 11.4 10^3/uL (4.0-10.0)
[2021-02-28 14:04] LABS: ALBUMIN 3.4 GM/DL (3.2-5.2); ALT/SGPT 16 U/L (12-78); BILIRUBIN,DIRECT 0.1 MG/DL (0.0-0.2); BILIRUBIN,TOTAL 0.5 MG/DL (0.2-1.0); BLOOD UREA NITROGEN 10 MG/DL (7-18); CALCIUM LEVEL 8.6 MG/DL (8.5-10.1); CARBON DIOXIDE LEVEL 24 MEQ/L (21-32); CHLORIDE LEVEL 108 MEQ/L (98-107); CK-MB VALUE MASS < 1.0 NG/ML (<3.6); CPK CREATINE PHOSPHOKINASE 113 U/L (26-192); CREATININE FOR GFR 0.71 MG/DL (0.55-1.30); GLOMERULAR FILTRATION RATE > 60.0 (>58); GLUCOSE, FASTING 127 MG/DL (70-100); MB/CK RELATIVE INDEX 0.88 (< OR =4); POTASSIUM SERUM 4.3 MEQ/L (3.5-5.1); SODIUM LEVEL 139 MEQ/L (136-145); TOTAL PROTEIN 7.1 GM/DL (6.4-8.2); TROPONIN I < 0.02 NG/ML (< 0.10)
[2021-02-28 14:10] LABS: RSV AMPLIFICATION NEGATIVE (NEGATIVE)
[2021-02-28] MEDS ORDERED: PRED10TA2 PO (14:40)
[2021-02-28 15:00] VITALS: BP 130/66
--- NOTE | 2021-02-28 19:56 | ECGEPIP ---
[facility] - ED Test Date: 2021-02-28 Pat Name: SIMONE KELLY Department: Room: - Gender: Female Network Engineer Administrator: DONALD : 1975 Requested By: MIGUEL RODNEY Order Number: [id number] Reading MD: Miguel Robb Measurements Intervals [place] Rate: 78 P: 71 NH: 132 QRS: 73 QRSD: 74 T: 58 QT: 376 QTc: 428 Interpretive Statements Normal sinus rhythm Similar to tracing done 03-01-20 Electronically Signed on 02-28-2021 19:56:04 EDT by Miguel Robb
== END 2021-02-28 15:10 | disposition home or self-care (01) ==
LOC: M ED 11:50
DX: J20.9 Acute bronchitis, unspecified (principal); E11.9 Type 2 diabetes mellitus without complications; I10 Essential (primary) hypertension; J45.909 Unspecified asthma, uncomplicated; E78.5 Hyperlipidemia, unspecified; F17.200 Nicotine dependence, unspecified, uncomplicated; Z79.4 Long term (current) use of insulin; Z79.899 Other long term (current) drug therapy; Z88.0 Allergy status to penicillin; Z88.2 Allergy status to sulfonamides
CPT/HCPCS: 71045; 80048; 80076; 82550; 82553; 84443; 85025; 87631; 93005; 93041; 94760; 96374; 99284; J2930

== ENCOUNTER → 2021-03-05 | Outpatient (REF) | payer OTHER ==
[~2021-03-05] MED LIST changes: +PRED10TA2 PO
[2021-03-05 19:26] LABS: ALBUMIN 3.6 GM/DL (3.2-5.2); ALT/SGPT 20 U/L (12-78); BILIRUBIN,TOTAL 0.5 MG/DL (0.2-1.0); BLOOD UREA NITROGEN 12 MG/DL (7-18); CALCIUM LEVEL 9.6 MG/DL (8.5-10.1); CARBON DIOXIDE LEVEL 28 MEQ/L (21-32); CHLORIDE LEVEL 103 MEQ/L (98-107); CREATININE FOR GFR 0.84 MG/DL (0.55-1.30); GLOMERULAR FILTRATION RATE > 60.0 (>58); GLUCOSE, FASTING 195 MG/DL (70-100); POTASSIUM SERUM 4.9 MEQ/L (3.5-5.1); SODIUM LEVEL 138 MEQ/L (136-145); TOTAL PROTEIN 6.9 GM/DL (6.4-8.2)
== END ==
LOC: M SFHCPLAZ 14:24
PROVIDERS: ATTEND Physician Assistant Medical
DX: R14.0 Abdominal distension (gaseous) (principal)

== ENCOUNTER → 2021-03-05 | Outpatient (CLI) | payer OTHER ==
--- NOTE | 2021-03-05 15:46 | REPPI ---
INDICATION: R14.0 ABDOMINAL BLOATING. COMPARISON: 05/11/2017. TECHNIQUE: Two AP views abdomen and pelvis. FINDINGS: There is moderate fecal material scattered throughout the colon. No dilated small bowel loops are seen, with no evidence of small bowel obstruction. A surgical suture line is seen in both the right pelvis and left pelvis. No abnormal calcifications are seen. The visualized osseous structures appear intact. IMPRESSION: Moderate fecal retention. No evidence of small bowel obstruction. <Electronically signed by Nasir Birmingham > 03/05/21 [id number]
== END ==
LOC: M PLAIMG 14:41
PROVIDERS: ATTEND Physician Assistant Medical
DX: R14.0 Abdominal distension (gaseous) (principal); K59.00 Constipation, unspecified

== ENCOUNTER → 2021-03-18 | Outpatient (CLI) | payer OTHER ==
--- NOTE | 2021-03-18 08:25 | REP ---
INDICATION: ABNORMAL BLOATING COMPARISON: None TECHNIQUE: Axial noncontrast images from the lung bases to the pubic symphysis with coronal and sagittal reformations. This CT examination was performed using the following dose reduction techniques: Automated exposure control, adjustment of mA and/or kv according to the patient's size, and use of iterative reconstruction technique. FINDINGS: Lung bases demonstrate linear fibroatelectatic changes. 1 cm non solid ground-glass opacity along the periphery of the left lower lobe (series 204; image 11) noted. Visualized heart and pericardium are normal. Liver, spleen, pancreas, gallbladder, bilateral adrenal glands and kidneys are normal for noncontrast evaluation. The enteric system demonstrates mildly prominent fluid-filled small bowel and relatively normal appearance to the large bowel including normal terminal ileum and appendix in the right lower quadrant. Few scattered sigmoid diverticula noted without acute diverticulitis.. Pelvis demonstrates normal bladder and evidence for prior hysterectomy. No ascites. No free air. No adenopathy. No focal inflammatory stranding. Abdominal aorta without aneurysm. Musculoskeletal structures are intact and without acute osseous abnormality. IMPRESSION: 1. Mildly prominent fluid-filled small bowel raise the possibility of enteritis. 2. No further acute abdominopelvic pathology appreciated. 3. Nonspecific 1 cm non solid ground-glass density along the periphery of the left lower lobe. Consider short-term follow-up chest CT at 3 months for re-evaluation. <Electronically signed by Kendall Clarke > 03/18/21 [id number]
== END ==
LOC: M RAD 07:27
PROVIDERS: ATTEND Internal Medicine
DX: R10.2 Pelvic and perineal pain (principal)

== ENCOUNTER → 2021-04-05 | Outpatient (CLI) | payer OTHER ==
--- NOTE | 2021-04-05 15:00 | REP ---
INDICATION: N63.25 BREAST LUMP LT SIDE,6 MO F/U,S/P BENIGN BX. COMPARISON: Comparison mammography August 18, 2011, June of 2016, February 18, 2019, September 14, 2020, and October 17, 2020. Comparison sonography is reviewed from September 14, 2020. TECHNIQUE: Craniocaudal and mediolateral views of the left breast are obtained. 3D tomography is carried out. Targeted left breast sonography is performed as requested. This mammogram was interpreted with the aid of an FDA-approved computer-aided detection system. FINDINGS: Scattered fibroglandular elements are noted. There is a needle biopsy marker clip within a dominant soft tissue density in the 12 o'clock position in the left breast. This is unchanged mammographically from most recent comparison study of October of 2020 and September of 2020. There is been some involution in this breast parenchymal density as well as in the breast parenchyma diffusely in the interval since the 2010 prior study. No progressive change or natan density is seen. The Volpara volumetric breast density pattern is b. Targeted ultrasound: Targeted left breast sonography again demonstrates a heterogeneous hypoechoic area which was the site of previous biopsy 12 o'clock position left breast 1 cm from the nipple. This contains an echogenic focus consistent with the biopsy clip is centrally located within the lesion. This measures 1.9 x 1.5 x 2.5 cm today. Previously, its dimensions were measured at 2.6 x 3.2 x 1.3 cm. No progressive changes seen. No new sonographic lesion. IMPRESSION: BIRADS/ACR category 2 benign left breast mammographic and sonographic findings. This patient's Tyrer-Cuzick lifetime breast cancer risk assessment score is 16.3%. RECOMMENDATION: Repeat screening mammography recommended 1 year (for women over 40). The patient letter being requested is M2. <Electronically signed by Ramakrishna Renteria > 04/05/21 [id number]
== END ==
LOC: M WHC 13:56
PROVIDERS: ATTEND Surgery
DX: N63.25 Unspecified lump in the left breast, overlapping quadrants (principal)
CPT/HCPCS: 76642; 77065; G0279

== ENCOUNTER → 2021-05-20 | Outpatient (REF) | payer OTHER | LOC: M SFHCPLAZ 10:07 | PROVIDERS: ATTEND Physician Assistant Medical | DX: R14.0 Abdominal distension (gaseous) (principal) ==

== ENCOUNTER → 2021-05-20 | Outpatient (CLI) | payer OTHER ==
[2021-05-20 16:38] LABS: HEMOGLOBIN 13.8 g/dl (12.0-15.5); MEAN CORPUSCULAR HEMOGLOBIN 33.5 pg (27.0-33.0); MEAN CORPUSCULAR HGB CONC 32.9 g/dl (32.0-36.5); MEAN CORPUSCULAR VOLUME 101.9 fl (80.0-96.0); PLATELET COUNT, AUTOMATED 267 10^3/uL (150-450); RED BLOOD COUNT 4.12 10^6/uL (4.00-5.40); WHITE BLOOD COUNT 12.2 10^3/uL (4.0-10.0)
[2021-05-20 17:01] LABS: ALBUMIN 3.8 GM/DL (3.2-5.2); ALT/SGPT 21 U/L (12-78); BILIRUBIN,TOTAL 0.9 MG/DL (0.2-1.0); BLOOD UREA NITROGEN 7 MG/DL (7-18); CALCIUM LEVEL 8.9 MG/DL (8.5-10.1); CARBON DIOXIDE LEVEL 24 MEQ/L (21-32); CHLORIDE LEVEL 105 MEQ/L (98-107); CREATININE FOR GFR 0.82 MG/DL (0.55-1.30); GLOMERULAR FILTRATION RATE > 60.0 (>58); GLUCOSE, FASTING 183 MG/DL (70-100); POTASSIUM SERUM 4.6 MEQ/L (3.5-5.1); SODIUM LEVEL 137 MEQ/L (136-145); TOTAL PROTEIN 7.1 GM/DL (6.4-8.2)
[2021-05-20 17:38] LABS: CA 125 4.3 U/ML (<30.2)
== END ==
LOC: M WUC 10:24
PROVIDERS: ATTEND Physician Assistant Medical
DX: R14.0 Abdominal distension (gaseous) (principal)

== ENCOUNTER → 2021-05-23 | Outpatient (CLI) | payer OTHER ==
[~2021-05-23] MED LIST changes: +ISOVUE-370 76% 100ML VIAL As Ordered ONE
--- NOTE | 2021-05-23 15:49 | REP ---
INDICATION: LLL NODULE COMPARISON: None. TECHNIQUE: Standard helical technique after the intravenous administration of 100 cc Isovue 370 FINDINGS: The examination was performed for follow-up of a left lung nodule. Lung base images obtained during abdominal and pelvic CT scanning of 03/18/2021 have been reviewed and show a ground-glass pleural base nodule in the left lower lobe measuring 1 cm. There is no mediastinal or hilar adenopathy. There are no pleural or pericardial effusions. The imaged upper abdomen and imaged osseous structures are within normal limits. Evaluation of the lung marroquin shows bibasilar curvilinear densities which are pleural based and unchanged. The left lower lobe ground-glass nodule seen previously has completely resolved. A small bulla is seen in the right lung apex. No other lung field abnormalities are noted. IMPRESSION: 1. The left lower lobe ground-glass nodule seen previously has resolved. 2. Unchanged bibasilar curvilinear densities likely chronic fibrotic and/or subsegmental atelectatic changes, however, since are no remote priors for comparison a 3 month follow-up chest CT is recommended. There is no revised Fleischner society criteria on the recommendation for follow-up of such suspected chronic changes. 3. 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 <Electronically signed by Mauro Woods > 05/23/21 [id number]
== END ==
LOC: M RAD 14:36
PROVIDERS: ATTEND Physician Assistant Medical
DX: R91.1 Solitary pulmonary nodule (principal)
CPT/HCPCS: 71260; Q9967

== ENCOUNTER → 2021-07-29 | Outpatient (CLI) | payer OTHER ==
[~2021-07-29] MED LIST changes: -ISOVUE-370 76% 100ML VIAL As Ordered ONE
--- NOTE | 2021-07-29 15:07 | REP ---
INDICATION: COUGH, UNSPECIFIED. COMPARISON: Multiple the latest 02/28/2021 FINDINGS: The superior mediastinal structures are midline. The cardiac silhouette is unremarkable in size, shape, and position. The diaphragmatic surfaces of the lungs are regular, and the costophrenic angles are clear. The pulmonary marroquin are clear. The imaged osseous structures are intact. IMPRESSION: There is no acute cardiopulmonary disease. <Electronically signed by Mauro Woods > 07/29/21 [id number]
== END ==
LOC: M LAB 12:44
PROVIDERS: ATTEND Physician Assistant Medical
DX: R05.9 Cough, unspecified (principal)

== ENCOUNTER → 2021-10-11 | Outpatient (REF) ==
[~2021-10-11] MED LIST changes: -LISI-898 PO; +LISI5TAB11 PO; -MONT10TA10 PO; +MONT10TA97 PO
== END ==
LOC: M LABSMTC 09:43
PROVIDERS: ATTEND Pediatrics
DX: Z11.52 Encounter for screening for COVID-19 (principal)

== ENCOUNTER → 2021-11-08 | Outpatient (CLI) | payer OTHER ==
[2021-11-08 11:06] LABS: BASO # 0.1 10^3/uL (0.0-0.2); BASO % 0.6 % (0.0-1.0); EOS # 0.1 10^3/uL (0.0-0.5); EOS % 0.6 % (0.0-3.0); HEMATOCRIT 41.9 % (36.0-47.0); HEMOGLOBIN 13.7 g/dl (12.0-15.5); LYMPH # 3.9 10^3/uL (1.5-5.0); LYMPH % 30.4 % (24.0-44.0); MEAN CORPUSCULAR HEMOGLOBIN 32.5 pg (27.0-33.0); MEAN CORPUSCULAR HGB CONC 32.7 g/dl (32.0-36.5); MEAN CORPUSCULAR VOLUME 99.3 fl (80.0-96.0); MONO # 0.7 10^3/uL (0.0-0.8); MONO % 5.3 % (2.0-8.0); NEUTROPHILS % 62.8 % (36.0-66.0); PLATELET COUNT, AUTOMATED 300 10^3/uL (150-450); RED BLOOD COUNT 4.22 10^6/uL (4.00-5.40); WHITE BLOOD COUNT 12.8 10^3/uL (4.0-10.0)
[2021-11-08 11:34] LABS: ERYTHROCYTE SEDIMENTATION RATE 4 mm/hr (0-20)
[2021-11-08 11:37] LABS: ALBUMIN 3.6 GM/DL (3.2-5.2); ALT/SGPT 25 U/L (12-78); BILIRUBIN,TOTAL 0.4 MG/DL (0.2-1.0); BLOOD UREA NITROGEN 13 MG/DL (7-18); CALCIUM LEVEL 9.3 MG/DL (8.5-10.1); CARBON DIOXIDE LEVEL 29 MEQ/L (21-32); CHLORIDE LEVEL 100 MEQ/L (98-107); CREATININE FOR GFR 0.85 MG/DL (0.55-1.30); GLOMERULAR FILTRATION RATE > 60.0 (>58); GLUCOSE, FASTING 233 MG/DL (70-100); POTASSIUM SERUM 4.9 MEQ/L (3.5-5.1); SODIUM LEVEL 134 MEQ/L (136-145); TOTAL PROTEIN 7.1 GM/DL (6.4-8.2); VALPROIC ACID (DEPAKOTE) < 3.0 UG/ML (50.0-100.0)
== END ==
LOC: M PLALAB 10:24
PROVIDERS: ATTEND Physician Assistant
DX: R42 Dizziness and giddiness (principal)

== ENCOUNTER → 2021-11-13 | Outpatient (CLI) | payer OTHER ==
[2021-11-13 18:29] LABS: ALBUMIN 3.6 GM/DL (3.2-5.2); ALT/SGPT 16 U/L (12-78); BILIRUBIN,TOTAL 0.7 MG/DL (0.2-1.0); BLOOD UREA NITROGEN 9 MG/DL (7-18); CALCIUM LEVEL 9.2 MG/DL (8.5-10.1); CARBON DIOXIDE LEVEL 29 MEQ/L (21-32); CHLORIDE LEVEL 101 MEQ/L (98-107); CREATININE FOR GFR 0.75 MG/DL (0.55-1.30); GLOMERULAR FILTRATION RATE > 60.0 (>58); GLUCOSE, FASTING 130 MG/DL (70-100); POTASSIUM SERUM 4.6 MEQ/L (3.5-5.1); SODIUM LEVEL 136 MEQ/L (136-145); TOTAL PROTEIN 6.9 GM/DL (6.4-8.2)
[2021-11-13 18:35] LABS: HEMATOCRIT 41.5 % (36.0-47.0); HEMOGLOBIN 13.6 g/dl (12.0-15.5); MEAN CORPUSCULAR HEMOGLOBIN 32.5 pg (27.0-33.0); MEAN CORPUSCULAR HGB CONC 32.8 g/dl (32.0-36.5); MEAN CORPUSCULAR VOLUME 99.3 fl (80.0-96.0); PLATELET COUNT, AUTOMATED 276 10^3/uL (150-450); RED BLOOD COUNT 4.18 10^6/uL (4.00-5.40); WHITE BLOOD COUNT 10.6 10^3/uL (4.0-10.0)
[2021-11-13 20:19] LABS: ERYTHROCYTE SEDIMENTATION RATE 5 mm/hr (0-20)
[2021-11-13 20:41] LABS: HEMOGLOBIN A1c 7.1 %
== END ==
LOC: M PLAIMG 15:43
PROVIDERS: ATTEND Physician Assistant Medical
DX: M51.9 Unspecified thoracic, thoracolumbar and lumbosacral intervertebral disc disorder (principal); E10.9 Type 1 diabetes mellitus without complications

== ENCOUNTER → 2021-12-06 | Outpatient (CLI) | payer OTHER | LOC: M PLARAD 14:48 | PROVIDERS: ATTEND Physician Assistant Medical | DX: M46.46 Discitis, unspecified, lumbar region (principal) ==

== ENCOUNTER → 2021-12-23 | Outpatient (CLI) | payer OTHER ==
[2021-12-23 16:55] LABS: BASO # 0.1 10^3/uL (0.0-0.2); BASO % 0.6 % (0.0-1.0); EOS # 0.2 10^3/uL (0.0-0.5); HEMATOCRIT 38.1 % (36.0-47.0); HEMOGLOBIN 12.5 g/dl (12.0-15.5); LYMPH # 3.9 10^3/uL (1.5-5.0); LYMPH % 42.4 % (24.0-44.0); MEAN CORPUSCULAR HEMOGLOBIN 33.1 pg (27.0-33.0); MEAN CORPUSCULAR HGB CONC 32.8 g/dl (32.0-36.5); MEAN CORPUSCULAR VOLUME 100.8 fl (80.0-96.0); MONO # 0.6 10^3/uL (0.0-0.8); NEUTROPHILS # 4.5 10^3/uL (1.5-8.5); NEUTROPHILS % 48.7 % (36.0-66.0); PLATELET COUNT, AUTOMATED 265 10^3/uL (150-450); RED BLOOD COUNT 3.78 10^6/uL (4.00-5.40); WHITE BLOOD COUNT 9.3 10^3/uL (4.0-10.0)
[2021-12-23 17:16] LABS: C REACTIVE PROTEIN QUANTITATIV < 0.30 MG/DL (0.00-0.30); RHEUMATOID FACTOR QUANT < 10.0 IU/ML (<15.0)
[2021-12-23 17:42] LABS: ERYTHROCYTE SEDIMENTATION RATE 5 mm/hr (0-20)
== END ==
LOC: M RAD 16:06
PROVIDERS: ATTEND Physician Assistant Medical
DX: M79.676 Pain in unspecified toe(s) (principal)

== ENCOUNTER → 2022-01-17 | Outpatient (REF) | payer OTHER ==
[2022-01-17 17:10] LABS: APPEARANCE, URINE HAZY (CLEAR); BACTERIA, URINE AUTO NEGATIVE (NEGATIVE); BILIRUBIN, URINE AUTO NEGATIVE (NEGATIVE); BLOOD, URINE BLOOD NEGATIVE (NEGATIVE); COLOR, URINE YELLOW (YELLOW); GLUCOSE, URINE (UA) AUTO 3+ mg/dL (NEGATIVE); KETONE, URINE AUTO 1+ mg/dL (NEGATIVE); LEUKOCYTE ESTERASE, URINE AUTO TRACE (NEGATIVE); MUCUS, URINE SMALL (NEGATIVE); NITRITE, URINE AUTO NEGATIVE (NEGATIVE); PROTEIN, URINE AUTO NEGATIVE (NEGATIVE); RBC, URINE AUTO 2 /HPF (0-3); SPECIFIC GRAVITY URINE AUTO 1.023 (1.002-1.035); SQUAMOUS EPITHELIAL CELL UR AU 7 /HPF (0-6); TRANSITIONAL EPITHELIAL AUTO 1 /HPF; UROBILINOGEN, URINE AUTO 0.2 mg/dL (0.0-2.0); WBC, URINE AUTO 18 /HPF (0-3)
== END ==
LOC: M SFHCPLAZ 16:44
PROVIDERS: ATTEND Physician Assistant Medical
DX: R30.0 Dysuria (principal)

== ENCOUNTER → 2022-04-04 | Outpatient (REF) | payer OTHER ==
[2022-04-08 19:01] LABS: MALB URINE SIEMENS < 5.0 MG/L; MAU/CREAT RATIO 2.8 MCG/MG (0.0-30.0)
== END ==
LOC: M LAB REF 17:21
PROVIDERS: ATTEND Nurse Practitioner Family
DX: E10.649 Type 1 diabetes mellitus with hypoglycemia without coma (principal)

== ENCOUNTER 2022-05-02 19:18 | Emergency (ER) | payer OTHER ==
[~2022-05-02] VITALS: Ht 167.6 cm; Wt 65.6 kg
[2022-05-02 22:48] LABS: BASO # 0.1 10^3/uL (0.0-0.2); BASO % 0.5 % (0.0-1.0); EOS # 0.2 10^3/uL (0.0-0.5); EOS % 1.9 % (0.0-3.0); HEMOGLOBIN 13.9 g/dl (12.0-15.5); LYMPH % 33.4 % (24.0-44.0); MEAN CORPUSCULAR HEMOGLOBIN 33.7 pg (27.0-33.0); MEAN CORPUSCULAR HGB CONC 33.9 g/dl (32.0-36.5); MEAN CORPUSCULAR VOLUME 99.5 fl (80.0-96.0); MONO # 0.8 10^3/uL (0.0-0.8); MONO % 6.5 % (2.0-8.0); NEUTROPHILS # 6.8 10^3/uL (1.5-8.5); NEUTROPHILS % 57.4 % (36.0-66.0); PLATELET COUNT, AUTOMATED 271 10^3/uL (150-450); RED BLOOD COUNT 4.12 10^6/uL (4.00-5.40); WHITE BLOOD COUNT 11.8 10^3/uL (4.0-10.0)
[2022-05-02 23:12] LABS: ALBUMIN 3.8 GM/DL (3.2-5.2); ALT/SGPT 14 U/L (12-78); BILIRUBIN,DIRECT 0.1 MG/DL (0.0-0.2); BILIRUBIN,TOTAL 0.5 MG/DL (0.2-1.0); BLOOD UREA NITROGEN 15 MG/DL (7-18); CALCIUM LEVEL 9.3 MG/DL (8.5-10.1); CARBON DIOXIDE LEVEL 25 MEQ/L (21-32); CHLORIDE LEVEL 107 MEQ/L (98-107); CREATININE FOR GFR 0.79 MG/DL (0.55-1.30); GLOMERULAR FILTRATION RATE > 60.0 (>58); GLUCOSE, FASTING 140 MG/DL (70-100); LIPASE 81 U/L (73-393); POTASSIUM SERUM 3.7 MEQ/L (3.5-5.1); SODIUM LEVEL 140 MEQ/L (136-145); TOTAL PROTEIN 7.2 GM/DL (6.4-8.2)
[2022-05-02] MEDS ORDERED: KETOROLAC 30 MG/ML 1ML VIAL IV ONE (23:40)
[2022-05-02] MEDS ORDERED: NS 1,310 ML IV ONE (23:40)
[2022-05-02] MEDS ORDERED: cefTRIAXone SOD 1 GM in D5W MINI-BAG PLUS 50 ML IV ONE (23:40)
[2022-05-02 23:56] LABS: C REACTIVE PROTEIN QUANTITATIV < 0.30 MG/DL (0.00-0.30)
[2022-05-03 00:12] LABS: ERYTHROCYTE SEDIMENTATION RATE 5 mm/hr (0-20)
[2022-05-03] MEDS ORDERED: CLINDAMYCIN 150MG CAPSULE PO ONE (01:40)
[2022-05-03] MEDS ORDERED: HYDR-3713 PO (01:42)
[2022-05-03] MEDS ORDERED: CLEO300C2 PO (01:42)
[2022-05-03] MEDS ORDERED: KETO10TAB PO (01:50)
[2022-05-03 01:53] VITALS: BP 130/88
== END 2022-05-03 01:55 | disposition home or self-care (01) ==
LOC: M ED 19:18
DX: L03.115 Cellulitis of right lower limb (principal); I89.1 Lymphangitis; E10.9 Type 1 diabetes mellitus without complications; E78.5 Hyperlipidemia, unspecified; I10 Essential (primary) hypertension; J45.909 Unspecified asthma, uncomplicated; F17.200 Nicotine dependence, unspecified, uncomplicated; Z88.0 Allergy status to penicillin; Z88.1 Allergy status to other antibiotic agents; Z88.2 Allergy status to sulfonamides; Z79.51 Long term (current) use of inhaled steroids; Z79.4 Long term (current) use of insulin; Z79.899 Other long term (current) drug therapy
CPT/HCPCS: 73630; 80047; 80048; 80076; 83605; 83690; 85025; 85652; 86140; 87040; 93005; 96365; 96366; 96375; 99284; J0696; J1885

== ENCOUNTER → 2022-05-06 | Outpatient (REF) | payer OTHER ==
[~2022-05-06] MED LIST changes: +CLEO300C2 PO; +KETO10TAB PO
== END ==
LOC: M SFHCPLAZ 12:50
PROVIDERS: ATTEND Physician Assistant
DX: L03.031 Cellulitis of right toe (principal)

== ENCOUNTER → 2022-06-27 | Outpatient (CLI) | payer OTHER ==
[2022-06-27 16:27] LABS: CHOLESTEROL RISK RATIO 1.596 (<5)
== END ==
LOC: M PLALAB 13:13
PROVIDERS: ATTEND Physician Assistant
DX: E78.2 Mixed hyperlipidemia (principal)

== ENCOUNTER → 2022-06-27 | Outpatient (CLI) | payer OTHER ==
[2022-06-27 15:44] LABS: BASO # 0.1 10^3/uL (0.0-0.2); BASO % 0.8 % (0.0-1.0); EOS # 0.1 10^3/uL (0.0-0.5); EOS % 0.7 % (0.0-3.0); HEMATOCRIT 42.6 % (36.0-47.0); HEMOGLOBIN 14.1 g/dl (12.0-15.5); LYMPH % 38.4 % (24.0-44.0); MEAN CORPUSCULAR HEMOGLOBIN 33.2 pg (27.0-33.0); MEAN CORPUSCULAR HGB CONC 33.1 g/dl (32.0-36.5); MEAN CORPUSCULAR VOLUME 100.2 fl (80.0-96.0); MONO # 0.7 10^3/uL (0.0-0.8); MONO % 6.3 % (2.0-8.0); NEUTROPHILS # 5.6 10^3/uL (1.5-8.5); NEUTROPHILS % 53.5 % (36.0-66.0); PLATELET COUNT, AUTOMATED 270 10^3/uL (150-450); RED BLOOD COUNT 4.25 10^6/uL (4.00-5.40); WHITE BLOOD COUNT 10.5 10^3/uL (4.0-10.0)
[2022-06-27 16:19] LABS: ERYTHROCYTE SEDIMENTATION RATE 2 mm/hr (0-20)
== END ==
LOC: M PLALAB 13:13
PROVIDERS: ATTEND Podiatrist Foot & Ankle Surgery
DX: L03.90 Cellulitis, unspecified (principal)

== ENCOUNTER → 2022-07-07 | Outpatient (CLI) | payer OTHER ==
[2022-07-07 13:54] LABS: ALBUMIN 4.2 GM/DL (3.2-5.2); CALCIUM LEVEL 9.4 MG/DL (8.5-10.1); CREATININE FOR GFR 1.17 MG/DL (0.55-1.30); GLOMERULAR FILTRATION RATE 52.8 (>58); PHOSPHORUS LEVEL 3.1 MG/DL (2.5-4.9); POTASSIUM SERUM 4.9 MEQ/L (3.5-5.1)
== END ==
LOC: M PLALAB 10:47
PROVIDERS: ATTEND Physician Assistant
DX: M86.9 Osteomyelitis, unspecified (principal)

== ENCOUNTER → 2022-07-08 | Outpatient (CLI) | payer OTHER ==
[~2022-07-08] MED LIST changes: +PROHANCE 279.3MG/ML 15ML VIAL As Ordered ONE
== END ==
LOC: M RAD 11:17
PROVIDERS: ATTEND Physician Assistant
DX: M86.9 Osteomyelitis, unspecified (principal)
CPT/HCPCS: 73720; A9576

== ENCOUNTER → 2022-07-23 | Outpatient (REF) | payer OTHER ==
[~2022-07-23] MED LIST changes: -PROHANCE 279.3MG/ML 15ML VIAL As Ordered ONE
== END ==
LOC: M SFHCPLAZ 16:48
PROVIDERS: ATTEND Physician Assistant
DX: R30.0 Dysuria (principal)

== ENCOUNTER → 2022-08-04 | Outpatient (CLI) | payer OTHER | LOC: M RAD 15:45 | PROVIDERS: ATTEND Internal Medicine Infectious Disease | DX: M79.674 Pain in right toe(s) (principal) ==

== ENCOUNTER → 2022-08-08 | Outpatient (REF) | payer OTHER ==
[2022-08-08 15:10] LABS: GC DNA AMPLIFICATION NEGATIVE (NEGATIVE)
== END ==
LOC: M SFHCPLAZ 13:20
PROVIDERS: ATTEND Physician Assistant
DX: Z11.3 Encounter for screening for infections with a predominantly sexual mode of transmission (principal)

== ENCOUNTER → 2022-08-08 | Outpatient (CLI) | payer OTHER ==
[2022-08-08 18:59] LABS: HEMOGLOBIN A1c 7.1 %
[2022-08-08 19:39] LABS: HIV 1&2 SCREEN CENTAUR NEGATIVE (NEGATIVE)
== END ==
LOC: M PLALAB 15:37
PROVIDERS: ATTEND Physician Assistant
DX: E10.9 Type 1 diabetes mellitus without complications (principal); Z11.3 Encounter for screening for infections with a predominantly sexual mode of transmission
CPT/HCPCS: 36415; 83036; 86780; 87389; G0472

== ENCOUNTER → 2022-08-26 | Outpatient (CLI) | payer OTHER | LOC: M PLAIMG 15:56 | PROVIDERS: ATTEND Physician Assistant | DX: M79.675 Pain in left toe(s) (principal) ==

== ENCOUNTER → 2022-11-06 | Outpatient (CLI) | payer OTHER | LOC: M LABSMTC 09:57 | PROVIDERS: ATTEND Plastic Surgery Surgery of the Hand | DX: Z01.812 Encounter for preprocedural laboratory examination (principal) ==

== ENCOUNTER → 2022-11-07 | Outpatient (CLI) | payer OTHER ==
[2022-11-07 17:00] LABS: HEMOGLOBIN 15.3 g/dl (12.0-15.5); MEAN CORPUSCULAR HEMOGLOBIN 33.3 pg (27.0-33.0); MEAN CORPUSCULAR HGB CONC 33.3 g/dl (32.0-36.5); PLATELET COUNT, AUTOMATED 283 10^3/uL (150-450); WHITE BLOOD COUNT 11.8 10^3/uL (4.0-10.0)
[2022-11-07 17:31] LABS: ATYPICAL LYMPH 4 % (0-5); BASOPHILS 3 % (0-1); EOSINOPHILS 1 % (0-3); LYMPHOCYTES 41 % (16-44); MONOCYTES 2 % (0-5); NEUTROPHILS 49 % (28-66)
[2022-11-07 17:34] LABS: ALBUMIN 3.7 G/DL (3.2-5.2); ALKALINE PHOSPHATASE 61 U/L (46-116); ALT/SGPT 13 U/L (7.0-40); AST/SGOT 16 U/L (<34); BILIRUBIN,TOTAL 0.6 MG/DL (0.3-1.2); BLOOD UREA NITROGEN 14 MG/DL (9-23); CALCIUM LEVEL 9.4 MG/DL (8.5-10.1); CARBON DIOXIDE LEVEL 30 MMOL/L (20-31); CHLORIDE LEVEL 102 MMOL/L (98-107); FREE T4 1.09 NG/DL (0.89-1.76); GLOMERULAR FILTRATION RATE > 60.0 (>58); GLUCOSE, FASTING 180 MG/DL (60-100); POTASSIUM SERUM 4.7 MMOL/L (3.5-5.1); SODIUM LEVEL 138 MMOL/L (136-145); THYROID STIMULATING HORMONE 1.305 uIU/ML (0.55-4.78); TOTAL PROTEIN 7.1 G/DL (5.7-8.2); VITAMIN B12 LEVEL 463 PG/ML (211-911)
[2022-11-07 17:44] LABS: PLATELET ESTIMATE NORMAL (NORMAL)
== END ==
LOC: M PLALAB 15:53
PROVIDERS: ATTEND Family Medicine
DX: I10 Essential (primary) hypertension (principal); D75.89 Other specified diseases of blood and blood-forming organs

== ENCOUNTER → 2023-01-29 | Outpatient (CLI) | payer OTHER ==
[2023-01-29 15:59] LABS: BASO # 0.1 10^3/uL (0.0-0.2); BASO % 0.8 % (0.0-1.0); EOS # 0.1 10^3/uL (0.0-0.5); EOS % 1.1 % (0.0-3.0); HEMATOCRIT 40.6 % (36.0-47.0); HEMOGLOBIN 13.3 g/dl (12.0-15.5); LYMPH # 3.6 10^3/uL (1.5-5.0); LYMPH % 35.3 % (24.0-44.0); MEAN CORPUSCULAR HEMOGLOBIN 32.8 pg (27.0-33.0); MEAN CORPUSCULAR HGB CONC 32.8 g/dl (32.0-36.5); MEAN CORPUSCULAR VOLUME 100.2 fl (80.0-96.0); MONO # 0.7 10^3/uL (0.0-0.8); MONO % 6.9 % (2.0-8.0); NEUTROPHILS # 5.6 10^3/uL (1.5-8.5); NEUTROPHILS % 55.6 % (36.0-66.0); PLATELET COUNT, AUTOMATED 262 10^3/uL (150-450); RED BLOOD COUNT 4.05 10^6/uL (4.00-5.40); WHITE BLOOD COUNT 10.1 10^3/uL (4.0-10.0)
[2023-01-29 16:04] LABS: HEMOGLOBIN A1c 7.2 % (4.0-6.0)
[2023-01-29 16:20] LABS: BLOOD UREA NITROGEN 13 MG/DL (9-23); CALCIUM LEVEL 9.2 MG/DL (8.5-10.1); CARBON DIOXIDE LEVEL 29 MMOL/L (20-31); CHLORIDE LEVEL 104 MMOL/L (98-107); CREATININE FOR GFR 0.71 MG/DL (0.55-1.30); GLOMERULAR FILTRATION RATE > 60.0 (>58); GLUCOSE, FASTING 175 MG/DL (60-100); POTASSIUM SERUM 4.7 MMOL/L (3.5-5.1); SODIUM LEVEL 140 MMOL/L (136-145)
[2023-01-29 16:22] LABS: ERYTHROCYTE SEDIMENTATION RATE 6 mm/hr (0-20)
== END ==
LOC: M PLALAB 13:49
PROVIDERS: ATTEND Physician Assistant
DX: L03.112 Cellulitis of left axilla (principal)

== ENCOUNTER → 2023-02-26 | Outpatient (REF) | payer OTHER | LOC: M LAB REF 22:23 | PROVIDERS: ATTEND Physician Assistant | DX: J02.9 Acute pharyngitis, unspecified (principal) ==

== ENCOUNTER → 2023-06-24 | Outpatient (REF) ==
[~2023-06-24] MED LIST changes: -GABA-283 PO; +GABA-284 PO
== END ==
LOC: M EMP 09:03
PROVIDERS: ATTEND Family Medicine
DX: Z11.52 Encounter for screening for COVID-19 (principal)

== ENCOUNTER → 2023-07-29 | Outpatient (REF) | payer OTHER ==
[2023-07-29 18:20] LABS: CREATININE, URINE 96.3 MG/DL; MALB URINE SIEMENS < 3.0 MG/L; MAU/CREAT RATIO 3.1 MCG/MG (0.0-30.0)
== END ==
LOC: M LAB REF 16:58
PROVIDERS: ATTEND Nurse Practitioner Family
DX: E10.649 Type 1 diabetes mellitus with hypoglycemia without coma (principal)

== ENCOUNTER → 2023-08-07 | Outpatient (CLI) | payer OTHER | LOC: M PLAIMG 12:04 | PROVIDERS: ATTEND Physician Assistant | DX: R05.3 Chronic cough (principal) ==

== ENCOUNTER → 2023-11-06 | Outpatient (CLI) | payer OTHER ==
[2023-11-06 18:22] LABS: BASO # 0.1 10^3/uL (0.0-0.2); BASO % 0.7 % (0.0-1.0); EOS # 0.2 10^3/uL (0.0-0.5); EOS % 1.9 % (0.0-3.0); HEMATOCRIT 42.5 % (36.0-47.0); LYMPH # 3.8 10^3/uL (1.5-5.0); LYMPH % 32.1 % (24.0-44.0); MEAN CORPUSCULAR HEMOGLOBIN 32.9 pg (27.0-33.0); MEAN CORPUSCULAR HGB CONC 32.9 g/dl (32.0-36.5); MONO # 0.7 10^3/uL (0.0-0.8); PLATELET COUNT, AUTOMATED 257 10^3/uL (150-450); RED BLOOD COUNT 4.25 10^6/uL (4.00-5.40); WHITE BLOOD COUNT 11.8 10^3/uL (4.0-10.0)
[2023-11-06 18:36] LABS: VALPROIC ACID (DEPAKOTE) 36.1 UG/ML (50.0-100.0)
[2023-11-06 18:37] LABS: C REACTIVE PROTEIN QUANTITATIV < 0.40 MG/DL (<1.0)
[2023-11-06 18:43] LABS: ERYTHROCYTE SEDIMENTATION RATE 10 mm/hr (0-20)
[2023-11-06 18:53] LABS: HEMOGLOBIN A1c 7.9 % (4.0-6.0)
[2023-11-06 18:59] LABS: ALBUMIN 3.6 G/DL (3.2-5.2); ALKALINE PHOSPHATASE 68 U/L (46-116); ALT/SGPT 18 U/L (7.0-40); AST/SGOT < 8 U/L (<34); BILIRUBIN,TOTAL 0.5 MG/DL (0.3-1.2); BLOOD UREA NITROGEN 16 MG/DL (9-23); CALCIUM LEVEL 8.9 MG/DL (8.5-10.1); CARBON DIOXIDE LEVEL 30 MMOL/L (20-31); CHLORIDE LEVEL 98 MMOL/L (98-107); CHOLESTEROL LEVEL 134 MG/DL (<200); CHOLESTEROL RISK RATIO 1.85 (<5); CREATININE FOR GFR 0.78 MG/DL (0.55-1.30); FREE T4 0.97 NG/DL (0.89-1.76); GLOMERULAR FILTRATION RATE > 60.0 (>58); GLUCOSE, FASTING 534 MG/DL (60-100); HDL CHOLESTEROL 72.4 MG/DL (>40); LDL CHOLESTEROL 45.4 MG/DL (<100); NON-HDL-C 61.6 MG/DL; POTASSIUM SERUM 5.3 MMOL/L (3.5-5.1); SODIUM LEVEL 131 MMOL/L (136-145); THYROID STIMULATING HORMONE 2.566 uIU/ML (0.55-4.78); TOTAL PROTEIN 6.9 G/DL (5.7-8.2); TRIGLYCERIDES LEVEL 81 MG/DL (<150)
== END ==
LOC: M PLALAB 14:50
PROVIDERS: ATTEND Physician Assistant
DX: E78.2 Mixed hyperlipidemia (principal)

== ENCOUNTER → 2024-02-11 | Outpatient (REF) | payer OTHER | LOC: M SFHCWAGY 15:05 | PROVIDERS: ATTEND Nurse Practitioner Family | DX: Z12.4 Encounter for screening for malignant neoplasm of cervix (principal) | CPT/HCPCS: 87624; G0123 ==

== ENCOUNTER → 2024-03-11 | Outpatient (CLI) | payer OTHER | LOC: M WHC 12:25 | PROVIDERS: ATTEND Nurse Practitioner Family | DX: Z12.31 Encounter for screening mammogram for malignant neoplasm of breast (principal); N83.202 Unspecified ovarian cyst, left side ==

== ENCOUNTER → 2024-05-13 | Outpatient (CLI) | payer OTHER | LOC: M WHC 15:05 | PROVIDERS: ATTEND Physician Assistant | DX: N83.202 Unspecified ovarian cyst, left side (principal) ==

== ENCOUNTER → 2024-06-10 | Outpatient (CLI) | payer OTHER ==
[~2024-06-10] MED LIST changes: +PROHANCE 279.3MG/ML 15ML VIAL ONE
== END ==
LOC: M PLAIMG 15:14
PROVIDERS: ATTEND Physician Assistant
DX: R14.0 Abdominal distension (gaseous) (principal); N83.202 Unspecified ovarian cyst, left side; Z90.710 Acquired absence of both cervix and uterus

== ENCOUNTER → 2024-07-29 | Outpatient (REF) | payer OTHER ==
[~2024-07-29] MED LIST changes: -PROHANCE 279.3MG/ML 15ML VIAL ONE
== END ==
LOC: M SFHCPLAZ 16:20
PROVIDERS: ATTEND Physician Assistant
DX: J02.9 Acute pharyngitis, unspecified (principal); R50.9 Fever, unspecified

== ENCOUNTER 2024-09-22 07:45 | Day surgery (SDC) | payer OTHER ==
[~2024-09-22] VITALS: Ht 167.6 cm; Wt 60.0 kg
[~2024-09-22 07:45] MED LIST changes: -ADV250INH INH; +ADVA1AER9 INH; -MECL-86; +MECL-86 PO; +PROP10TA56 PO
[2024-09-22] MEDS ORDERED: propofoL 200 MG/20 ML VIAL As Ordered ONE (08:41)
[2024-09-22 08:57] VITALS: TEMP 98.5
[2024-09-22 09:16] VITALS: BP 131/71; O2SAT 99
== END 2024-09-22 09:20 | disposition home or self-care (01) ==
LOC: M OPP 07:45
PROVIDERS: ATTEND Surgery
DX: Z12.11 Encounter for screening for malignant neoplasm of colon (principal); K63.5 Polyp of colon; I10 Essential (primary) hypertension; E78.5 Hyperlipidemia, unspecified; E10.9 Type 1 diabetes mellitus without complications; K21.9 Gastro-esophageal reflux disease without esophagitis; F41.9 Anxiety disorder, unspecified; F32.A Depression, unspecified; J45.909 Unspecified asthma, uncomplicated; F17.210 Nicotine dependence, cigarettes, uncomplicated; Z88.0 Allergy status to penicillin; Z88.1 Allergy status to other antibiotic agents; Z88.2 Allergy status to sulfonamides; Z79.4 Long term (current) use of insulin; Z79.51 Long term (current) use of inhaled steroids; Z79.899 Other long term (current) drug therapy

== ENCOUNTER → 2024-10-17 | Outpatient (REF) | LOC: M EMP 07:53 | PROVIDERS: ATTEND Family Medicine | DX: Z01.89 Encounter for other specified special examinations (principal) ==

== ENCOUNTER → 2024-11-09 | Outpatient (REF) | payer OTHER ==
[2024-11-09 16:28] LABS: MONO REFLEX EBV COMP NEGATIVE (NEGATIVE)
== END ==
LOC: M SFHCPLAZ 13:25
PROVIDERS: ATTEND Nurse Practitioner Family
DX: J02.9 Acute pharyngitis, unspecified (principal)

== ENCOUNTER → 2024-11-09 | Outpatient (REF) | payer OTHER | LOC: M SFHCPLAZ 12:19 | PROVIDERS: ATTEND Nurse Practitioner Family | DX: J02.9 Acute pharyngitis, unspecified (principal) ==

== ENCOUNTER → 2024-11-23 | Outpatient (CLI) | payer OTHER ==
[2024-11-23 13:54] LABS: ALBUMIN 3.4 G/DL (3.2-5.2); ALKALINE PHOSPHATASE 57 U/L (35-104); ALT/SGPT 17 U/L (7.0-40); AST/SGOT 9 U/L (<34); BILIRUBIN,TOTAL 0.7 MG/DL (0.3-1.2); BLOOD UREA NITROGEN 15 MG/DL (9-23); CALCIUM LEVEL 8.8 MG/DL (8.5-10.1); CARBON DIOXIDE LEVEL 30 MMOL/L (20-31); CHLORIDE LEVEL 102 MMOL/L (98-107); CHOLESTEROL LEVEL 130 MG/DL (<200); CHOLESTEROL RISK RATIO 1.79 (<5); GLOMERULAR FILTRATION RATE > 60.0 (>51); GLUCOSE, FASTING 193 MG/DL (60-100); HDL CHOLESTEROL 72.6 MG/DL (>40); LDL CHOLESTEROL 45.6 MG/DL (<100); NON-HDL-C 57.4 MG/DL; SODIUM LEVEL 137 MMOL/L (136-145); TOTAL PROTEIN 6.4 G/DL (5.7-8.2); TRIGLYCERIDES LEVEL 59 MG/DL (<150)
[2024-11-23 13:55] LABS: BASO # 0.1 10^3/uL (0.0-0.2); BASO % 0.6 % (0.0-1.0); EOS # 0.1 10^3/uL (0.0-0.5); EOS % 0.6 % (0.0-3.0); FREE T4 1.02 NG/DL (0.89-1.76); HEMATOCRIT 45.4 % (36.0-47.0); HEMOGLOBIN 14.9 g/dl (12.0-15.5); LYMPH # 4.5 10^3/uL (1.5-5.0); LYMPH % 36.7 % (24.0-44.0); MEAN CORPUSCULAR HEMOGLOBIN 32.7 pg (27.0-33.0); MEAN CORPUSCULAR HGB CONC 32.8 g/dl (32.0-36.5); MEAN CORPUSCULAR VOLUME 99.6 fl (80.0-96.0); MONO # 0.7 10^3/uL (0.0-0.8); MONO % 5.6 % (2.0-8.0); NEUTROPHILS # 6.9 10^3/uL (1.5-8.5); NEUTROPHILS % 56.2 % (36.0-66.0); PLATELET COUNT, AUTOMATED 227 10^3/uL (150-450); RED BLOOD COUNT 4.56 10^6/uL (4.00-5.40); THYROID STIMULATING HORMONE 1.461 uIU/ML (0.55-4.78); WHITE BLOOD COUNT 12.3 10^3/uL (4.0-10.0)
[2024-11-23 14:29] LABS: HEMOGLOBIN A1c 7.6 % (4.0-6.0)
== END ==
LOC: M PLALAB 10:25
PROVIDERS: ATTEND Nurse Practitioner Family
DX: I10 Essential (primary) hypertension (principal)

== ENCOUNTER → 2024-12-16 | Outpatient (CLI) | payer OTHER | LOC: M PLAIMG 15:53 | PROVIDERS: ATTEND Nurse Practitioner Family | DX: M25.512 Pain in left shoulder (principal) ==

== ENCOUNTER → 2025-01-06 | Outpatient (CLI) | payer OTHER ==
[~2025-01-06] MED LIST changes: +DIVA500T94 PO; +NAPR-885 PO
== END ==
LOC: M EKG 15:49
PROVIDERS: ATTEND Anesthesiology
DX: Z01.818 Encounter for other preprocedural examination (principal); I10 Essential (primary) hypertension

== ENCOUNTER 2025-01-18 08:08 | Day surgery (SDC) | payer OTHER ==
[~2025-01-18] VITALS: Ht 167.6 cm; Wt 63.0 kg
[2025-01-18] MEDS ORDERED: LIDOCAINE 2% 100MG/5ML SDV (FOR ANES.) As Ordered ONE (08:14)
[2025-01-18] MEDS ORDERED: ROCURONIUM BROMIDE 50MG/5ML VIAL As Ordered ONE (08:14)
[2025-01-18] MEDS ORDERED: ONDANSETRON 4MG 2ML VIAL As Ordered ONE (08:14)
[2025-01-18] MEDS ORDERED: propofoL 200 MG/20 ML VIAL As Ordered ONE (08:14)
[2025-01-18] MEDS ORDERED: dexmedeTOMIDine (4MCG/ML)200MCG/50ML BTL (PRECEDEX) As Ordered ONE (08:14)
[2025-01-18] MEDS ORDERED: MIDAZOLAM INJ 2MG/2ML VIAL As Ordered ONE (08:15)
[2025-01-18] MEDS ORDERED: fentaNYL 100 MCG/2 ML INJECTION As Ordered ONE (08:15)
[2025-01-18 08:48] LABS: HEMATOCRIT 49.4 % (36.0-47.0); HEMOGLOBIN 16.7 g/dl (12.0-15.5); MEAN CORPUSCULAR HEMOGLOBIN 33.5 pg (27.0-33.0); MEAN CORPUSCULAR HGB CONC 33.8 g/dl (32.0-36.5); MEAN CORPUSCULAR VOLUME 99.2 fl (80.0-96.0); PLATELET COUNT, AUTOMATED 224 10^3/uL (150-450); RED BLOOD COUNT 4.98 10^6/uL (4.00-5.40); WHITE BLOOD COUNT 10.2 10^3/uL (4.0-10.0)
[2025-01-18] MEDS ORDERED: LR 1,000 ML IV SCH (08:55)
[2025-01-18] MEDS ORDERED: ACETAMINOPHEN 1000MG/100ML IV BAG As Ordered ONE (10:47)
[2025-01-18] MEDS ORDERED: SUGAMMADEX SODIUM 500 MG/5 ML VIAL (BRIDION) As Ordered ONE (10:59)
[2025-01-18] MEDS ORDERED: KETOROLAC 30 MG/ML 1ML VIAL As Ordered ONE (11:00)
[2025-01-18] MEDS: LR 1,000 ML IV SCH (11:15)
[2025-01-18] MEDS ORDERED: fentaNYL 100 MCG/2 ML INJECTION IV PRN (11:15)
[2025-01-18] MEDS: oxyCODONE 5MG TAB PO PRN (11:35)
[2025-01-18] MEDS: HYDROMORPHONE HCL 0.5 MG/ 0.5 ML SYRINGE IV PRN (11:36)
[2025-01-18] MEDS: ONDANSETRON 4MG 2ML VIAL IV PRN (11:50)
[2025-01-18 13:01] VITALS: BP 125/72; TEMP 97.3; O2SAT 94
== END 2025-01-18 13:01 | disposition home or self-care (01) ==
LOC: M SDC 08:08
PROVIDERS: ATTEND Obstetrics & Gynecology
DX: N83.292 Other ovarian cyst, left side (principal); N83.02 Follicular cyst of left ovary; R10.2 Pelvic and perineal pain; Z90.710 Acquired absence of both cervix and uterus; Z98.51 Tubal ligation status; E11.9 Type 2 diabetes mellitus without complications; I10 Essential (primary) hypertension; E78.00 Pure hypercholesterolemia, unspecified; J45.909 Unspecified asthma, uncomplicated; K21.9 Gastro-esophageal reflux disease without esophagitis; F17.210 Nicotine dependence, cigarettes, uncomplicated; Z79.899 Other long term (current) drug therapy; Z79.4 Long term (current) use of insulin; Z79.51 Long term (current) use of inhaled steroids; Z88.0 Allergy status to penicillin; Z88.1 Allergy status to other antibiotic agents; Z88.2 Allergy status to sulfonamides; Z88.8 Allergy status to other drugs, medicaments and biological substances; F41.9 Anxiety disorder, unspecified; F32.A Depression, unspecified
CPT/HCPCS: 36415; 58661; 85027; 86850; 86900; 86901; 88305; J0131; J0665; J1100; J1171; J1885; J2250; J2405; J3010

== ENCOUNTER → 2025-02-21 | Outpatient (REF) | payer OTHER ==
[~2025-02-21] MED LIST changes: -GLUC1KIT INJ; +GLUC1VIA14 INJ
== END ==
LOC: M SFHCPLAZ 12:03
PROVIDERS: ATTEND Nurse Practitioner Family
DX: D72.829 Elevated white blood cell count, unspecified (principal); E10.649 Type 1 diabetes mellitus with hypoglycemia without coma

== ENCOUNTER → 2025-02-21 | Outpatient (CLI) | payer OTHER ==
[2025-02-21 17:28] LABS: HEMATOCRIT 43.4 % (36.0-47.0); HEMOGLOBIN 14.1 g/dl (12.0-15.5); MEAN CORPUSCULAR HEMOGLOBIN 32.9 pg (27.0-33.0); MEAN CORPUSCULAR HGB CONC 32.5 g/dl (32.0-36.5); MEAN CORPUSCULAR VOLUME 101.4 fl (80.0-96.0); PLATELET COUNT, AUTOMATED 241 10^3/uL (150-450); RED BLOOD COUNT 4.28 10^6/uL (4.00-5.40); WHITE BLOOD COUNT 9.4 10^3/uL (4.0-10.0)
[2025-02-21 17:59] LABS: HEMOGLOBIN A1c 7.8 % (4.0-6.0)
[2025-02-21 19:18] LABS: ATYPICAL LYMPH 3 % (0-5); BASOPHILS 2 % (0-1); EOSINOPHILS 2 % (0-3); LYMPHOCYTES 52 % (16-44); MONOCYTES 3 % (0-5); NEUTROPHILS 38 % (28-66)
[2025-02-21 19:19] LABS: PLATELET ESTIMATE NORMAL (NORMAL)
== END ==
LOC: M PLALAB 15:38
PROVIDERS: ATTEND Nurse Practitioner Family
DX: D72.829 Elevated white blood cell count, unspecified (principal); E10.649 Type 1 diabetes mellitus with hypoglycemia without coma

== ENCOUNTER → 2025-06-15 | Outpatient (REF) | payer OTHER ==
[~2025-06-15] MED LIST changes: +DIVA-41 PO; -DIVA500T94 PO
== END ==
LOC: M SFHCWAGY 17:03
PROVIDERS: ATTEND Student in an Organized Health Care Education/Training Program
DX: R19.09 Other intra-abdominal and pelvic swelling, mass and lump (principal)

== ENCOUNTER → 2025-07-05 | Outpatient (REF) | payer OTHER | LOC: M PLALAB 16:03 | PROVIDERS: ATTEND Obstetrics & Gynecology | DX: R19.09 Other intra-abdominal and pelvic swelling, mass and lump (principal) ==

== ENCOUNTER → 2025-07-14 | Outpatient (REF) | LOC: M EMP 07:37 | PROVIDERS: ATTEND Family Medicine | DX: Z53.8 Procedure and treatment not carried out for other reasons (principal) ==

== ENCOUNTER → 2025-08-08 | Outpatient (REF) | payer OTHER | LOC: M SFHCPLAZ 17:15 | PROVIDERS: ATTEND Nurse Practitioner Family | DX: J06.9 Acute upper respiratory infection, unspecified (principal) ==